=== PATIENT | female | born 1955 | race Caucasian/White ===

== ENCOUNTER 2020-04-10 20:14 | Emergency (ER) | payer OTHER, SELFPAY ==
[2020-04-10 20:32] VITALS: BP 174/110; PULSE 92; RESP 18; TEMP 36.7; O2SAT 97; BMI 16.2
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
[2020-04-10 22:43] VITALS: BP 150/96; PULSE 83; RESP 18; TEMP 36.7; O2SAT 97
== END 2020-04-10 22:47 | disposition home or self-care (01) ==
PROVIDERS: Emergency Provider Emergency Medicine; PCP Family Medicine
DX: S33.5XXA Sprain of ligaments of lumbar spine, initial encounter (principal); S16.1XXA Strain of muscle, fascia and tendon at neck level, initial encounter; V47.0XXA Car driver injured in collision with fixed or stationary object in nontraffic accident, initial encounter; Y92.89 Other specified places as the place of occurrence of the external cause
CPT/HCPCS: 71046; 72125; 72128; 72131; 72170; 99282

== ENCOUNTER 2020-04-29 04:16 | Inpatient (IN) | payer MEDICARE, OTHER, SELFPAY ==
[2020-04-29] VITALS (11 sets, daily range): BP systolic 137–186; BP diastolic 64–91; PULSE 59–90; RESP 16–98; TEMP 36.6–37.2; O2SAT 92–98; BMI 16.6; BMI 15.6
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
[2020-04-29 05:58] LABS: Basophils # 0.1 K/mm3 (0-0.2); Basophils % 0.8 % (0.1-2.0); Eosinophils # 0.1 K/mm3 (0.0-0.4); Eosinophils % 0.7 % (0.1-12.0); Hematocrit 54.1 % (37.0-47.0); Hemoglobin 16.4 g/dL (12.2-16.2); Lymphocytes # 1.3 K/mm3 (0.7-4.5); Lymphocytes % 11.7 % (10-50); Mean Corpuscular HGB Conc 30.4 g/dL (31.8-35.4); Mean Corpuscular Hemoglobin 30.6 pg (27.0-31.2); Mean Corpuscular Volume 100.6 fl (81-99); Monocytes # 0.8 K/mm3 (0.1-1.0); Monocytes % 6.8 % (1.7-9.3); Neutrophils # 9.2 K/mm3 (1.8-7.8); Neutrophils % 80.1 % (37.0-80.0); Platelet Count 247 K/mm3 (142-424); Red Blood Count 5.37 M/mm3 (4.20-5.40); Red Cell Distribution Width 13.2 % (11.5-17.5); White Blood Count 11.5 K/mm3 (4.8-10.8)
[2020-04-29 06:05] LABS: Alanine Aminotransferase 17 U/L (12-78); Albumin Level 4.9 g/dl (3.5-5.0); Albumin/Globulin Ratio 1.3 (1.1-1.8); Alkaline Phosphatase 249 U/L (38-126); Anion Gap 17.4 mEq/L (5-15); Aspartate Amino Transferase 35 U/L (14-36); Bilirubin,Total 0.9 mg/dl (0.2-1.3); Blood Urea Nitrogen 37 mg/dl (7-17); Calcium 10.2 mg/dl (8.4-10.2); Carbon Dioxide 33 mmol/L (22.0-30.0); Chloride 81 mmol/L (98-107); Creatinine Clearance Estimated 31 mL/min (50-200); Estimated Glomerular Filt Rate 45 ml/min (>60); GFR (African American) 55 ML/MIN (>60); Globulin 3.8 g/dL (1.3-3.2); Potassium 5.4 mmoL/L (3.5-5.1); Sodium 126 mmol/L (136-145); Total Protein,Serum 8.7 g/dl (6.3-8.2)
[2020-04-29 06:19] LABS: Ethyl Alcohol < 10 mg/dl (0-10)
[2020-04-29 06:20] LABS: Glucose 819 mg/dl (74-100)
[2020-04-29 06:59] LABS: Acetone, Serum (Rapid) None Detected (None Detect)
--- NOTE | 2020-04-29 07:10 | HMH.EDGENADL ---
ED Disposition Clinical Impression: Diabetes mellitus, insulin dependent (IDDM), uncontrolled, Renal insufficiency Hip fracture Qualifiers: Encounter type: initial encounter Fracture type: closed Laterality: right Qualified Code(s): S72.001A - Fracture of unspecified part of neck of right femur, initial encounter for closed fracture Disposition: Admitted As Inpatient Condition on Discharge: Fair Referrals: PCP,No [Non-Staff] - - Critical Care Critical Care Time: No Attestation: On 04/29/20, the high probability of a clinically significant, sudden or life threatening deterioration of the following system(s) required my full and direct attention, intervention and personal management. The time I documented below is in addition to time spent performing reported procedures but includes the following listed in this critical care notation. Medical Decision Making - Medical Records Medical records reviewed: Yes: I reviewed the patient's medical records. - Kodi Inquiry Pt receiving controlled substance: No Vital Signs: 04/29/20 04:17 04/29/20 04:45 04/29/20 08:11 Temperature 98.0 F Temperature Source Oral Pulse Rate Pulse Rate [Left Radial] 90 76 73 Respiratory Rate 16 18 Blood Pressure Blood Pressure [Right Arm] 148/87 H 186/67 H 184/91 H Blood Pressure Mean [Right Arm] 107 106 122 Blood Pressure Source [Right Arm] Automatic Cuff Automatic Cuff Blood Pressure Position Blood Pressure Position [Right Arm] Sitting Sitting 02 Sat by Pulse Oximetry 96 95 95 Oxygen Delivery Method Room Air Room Air Room Air 04/29/20 08:22 Temperature 98 F Temperature Source Oral Pulse Rate 74 Pulse Rate [Left Radial] Respiratory Rate 16 Blood Pressure 122/74 Blood Pressure [Right Arm] Blood Pressure Mean [Right Arm] Blood Pressure Source [Right Arm] Blood Pressure Position Sitting Blood Pressure Position [Right Arm] 02 Sat by Pulse Oximetry Oxygen Delivery Method Room Air - Lab Data Lab results reviewed: Yes: I reviewed the patient's lab results. Lab Results 04/29/20 05:22: WBC 11.5 H, RBC 5.37, Hgb 16.4 H, Hct 54.1 H, MCV 100.6 H, MCH 30.6, MCHC 30.4 L, RDW 13.2, Plt Count 247, MPV 10.0, Neut % (Auto) 80.1 H, Lymph % (Auto) 11.7, Monona % (Auto) 6.8, Eos % (Auto) 0.7, Baso % (Auto) 0.8, Neut # (Auto) 9.2 H, Lymph # (Auto) 1.3, Monona # (Auto) 0.8, Eos # (Auto) 0.1, Baso # (Auto) 0.1 04/29/20 05:22: Sodium 126 L, Potassium 5.4 H, Chloride 81 L, Carbon Dioxide 33 H, Anion Gap 17.4 H, BUN 37 H, Creatinine 1.20 H, Estimated Creat Clear 31, Estimated GFR 45 L, Est GFR ( Amer) 55 L, Glucose 819 H*, Calcium 10.2, Total Bilirubin 0.9, AST 35, ALT 17, Alkaline Phosphatase 249 H, Total Protein 8.7 H, Albumin 4.9, Globulin 3.8 H, Albumin/Globulin Ratio 1.3 04/29/20 05:22: Plasma/Serum Alcohol < 10 04/29/20 05:22: Acetone Level None detected 04/29/20 05:22: SARS-CoV-2 IgG Ab (Rapid) Negative, SARS-CoV-2 IgM Ab (Rapid) Negative 04/29/20 07:20: Urine Color Yellow, Urine Appearance Clear, Urine pH 5.5, Ur Specific Gill 1.010, Urine Protein 1+, Urine Glucose (UA) 3+, Urine Ketones Negative, Urine Blood Trace-l, Urine Nitrate Negative, Urine Bilirubin Negative, Urine Urobilinogen 0.2, Ur Leukocyte Esterase Negative, Urine RBC Occasional, Urine WBC None, Ur Squamous Epith Cells Occasional, Urine Bacteria None Result diagrams: 04/29/20 05:22 04/29/20 05:22 Orders (Tests/Meds): ED MEDICATIONS Discontinued Medications Generic Name Dose Route Start Last Admin Trade Name Freq PRN Reason Stop Dose Admin Sodium Chloride 1,000 mls @ 999 mls/hr 04/29/20 05:30 04/29/20 05:27 Sod Chlor 0.9% 1000ml Bag IV 04/29/20 06:30 999 mls/hr .Q1H1M VAN Administration Sodium Chloride 1,000 mls @ 999 mls/hr 04/29/20 06:30 04/29/20 06:27 Sod Chlor 0.9% 1000ml Bag IV 04/29/20 07:30 999 mls/hr .Q1H1M VAN Administration Insulin Human Regular 5 unit 04/29/20 06:22 04/29/20 06:27 Insulin Human Regular
[2020-04-29 07:23] LABS: Microscopic, Urine URINE MICROSCOPIC (MICROSCOPIC)
[2020-04-29 07:24] LABS: Coronavirus 19 IgG Antibody Negative (Negative); Coronavirus 19 IgM Antibody Negative (Negative)
[2020-04-29 07:24] LABS: Appearance,Urine CLEAR (Clear); Bilirubin,Urine Negative (Negative); Blood, Urine TRACE-L (Negative); Color,Urine YELLOW (Yellow); Glucose,Urine (UA) 3+ (Negative); Ketones,Urine Negative (Negative); Leukocyte Esterase,Urine Negative (Negative); Nitrate,Urine Negative (Negative); PH,Urine 5.5 (5.0-8.5); Protein,Urine 1+ (Negative); Urobilinogen,Urine 0.2 EU/dl (0.2)
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
--- NOTE | 2020-04-29 07:41 | PC.NURSE ---
Pt to rad.
[2020-04-29 07:47] LABS: RBC,Urine Occasional #/hpf (0-3); Squamous Epithelial Cell,Urine Occasional #/hpf (0-5)
--- NOTE | 2020-04-29 08:19 | PC.NURSE ---
Meena Lackey at this time.
--- NOTE | 2020-04-29 08:22 | PC.NURSE ---
Dr Lackey returned call.
--- NOTE | 2020-04-29 08:26 | ECG_ITS ---
APPROVED REPORT Exam: Resting ECG HR:83 bpm ECG Measurements Heart Rate 83 AXES TN 128 P 83 QRSd 76 QRS 98 QT 350 T 69 QTc 411 Conclusion Normal sinus rhythm Rightward axis Borderline ECG Electronically signed by : Silvestre Dang, 04/30/2020 06:26:22
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
--- NOTE | 2020-04-29 08:59 | PC.NURSE ---
Rad at bedside
[2020-04-29 09:13] LABS: INR 0.94 (0.9-1.1); Prothrombin Time 10.5 seconds (9.4-11.8)
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
--- NOTE | 2020-04-29 09:54 | PC.NURSE ---
Spoke w/ Dr. Dunn and states that Dr. Soria was consult in ED. Pt to be medically cleared by Dr. Lackey prior to surgery.
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
--- NOTE | 2020-04-29 11:52 | HMH.HP ---
*Admission Date: 04/29/20 *Chief complaint: right hip pain *History of present illness: Patient is a 65 year old female from [place], [place] who presented to [facility] ER overnight complaining of a 1 week history of right hip pain. Patient states she fell a week ago at home while sorting household goods for a yard sale. She was able to stand and walk after falling. She states the pain has gotten progressively worse over the past week to the point that she was unable to sleep due to the pain last night. Evaluation in the ER showed a right hip fracture on xray and CT scan so arrangements were made for admission to [facility]. Patient states she has numerous health problems including DM type2 (last A1c was 14 a month ago), CAD (CABG in 2011), COPD (100 pack year smoking history), chronic narcotic use and pancreatic insufficiency. [facility] History Medical History: Reports:: Cancer, Chronic Obstructive Pulmonary Disease (COPD), Coronary Artery Disease, Diabetes Mellitus Type 2, Hyperlipidemia, Hypertension, Myocardial Infarction Denies:: MRSA *Have you ever received a pneumonia vaccine?: Yes *Have you received a flu vaccine this season?: Yes Other Medical History: Reports: Arthritis, Cataracts Other Surgeries: Yes: Angioplasty, Appendectomy, CABG, Cancer Surgery (SQUAMOUS CELL CARCINOMA FACE), Cardiac Catheterization, Cardiac Surgery, Cholecystectomy, Coronary Stent, Hysterectomy-Total, Other (KIDNEY AND BLADDER RECON) Amputation: No - *Social History Smoking Status: Current every day smoker Tobacco Type: cigarettes # Packs/Day (cigarettes): 1 (up to 3 packs per day at times) #Yrs smoked (if former smoker): 50 Alcohol Intake: never *Occupational Status:: retired Housing: house *Travel in the last 8 weeks: None Family Hx:: Cancer, Coronary Artery Disease, Diabetes, Heart Attack, Stroke Review of Systems - Constitutional Denies chills, Denies fever(s), Denies weight loss - Eyes Denies change in vision - ENT Denies bleeding gums - *Cardiovascular Denies chest pain - *Respiratory Denies cough - *Gastrointestinal Denies abdominal pain - *Genitourinary Denies difficulty urinating - *Musculoskeletal Reports back pain (chronic) - Integumentary/Breasts Denies rash - *Neurologic Denies dizziness - Psychiatric Denies irritability Meds Home Medications Medication Instructions Recorded Confirmed Type Albuterol Sulfate [Proair 2 puffs IH Q8HP PRN 10/31/20 10/31/20 History Respiclick] Aspirin 325 mg PO DAILY 04/29/20 04/29/20 History Dicyclomine HCl 20 mg PO QID 04/29/20 04/29/20 History Insulin Aspart [Novolog] 0 unit SQ DIRECTED 04/29/20 04/29/20 History Insulin Detemir [Levemir 100 10 unit SQ BID 04/29/20 04/29/20 History units/mL 10mL vial] Lipase/Protease/Amylase [Miguel Dr 2 each PO AC 04/29/20 04/29/20 History 36,000 Units Capsule] Metoclopramide HCl [Metoclopramide 10 mg PO DAILY 04/29/20 04/29/20 History 10mg Tablet] Nebivolol HCl [Bystolic] 20 mg PO DAILY 04/29/20 04/29/20 History Oxycodone HCl/Acetaminophen 1 tab PO TIDP PRN 04/29/20 04/29/20 History [Percocet 10-325 mg Tablet] Pantoprazole Sodium 40 mg PO TID 04/29/20 04/29/20 History Promethazine HCl [Phenergan 25mg 25 mg PO Q6HP PRN 04/29/20 04/29/20 History tablet] Ropinirole HCl 0.5 mg PO TID 04/29/20 04/29/20 History Sertraline HCl [Zoloft] 50 mg PO DAILY 04/29/20 04/29/20 History ondansetron HCL [Zofran 4mg Tab*] 4 mg PO BIDP PRN 04/29/20 04/29/20 History Allergies Allergy/AdvReac Type Severity Reaction Status Date / Time Iodinated Contrast Media Allergy Verified 04/10/20 20:39 Exam Vital signs and Labs for Last 24 Hours: Temp Pulse Resp BP Pulse Ox 98 F 78 98 H 159/74 H 93 L 04/29/20 10:05 04/29/20 10:05 04/29/20 10:05 04/29/20 10:05 04/29/20 09:45 Laboratory Results - last 24 hr 04/29/20 05:22: WBC 11.5 H, RBC 5.37, Hgb 16.4 H, Hct 54.1 H, MCV 100.6 H, MCH 30.6, MCHC 30.4 L, RDW 13.2, Plt Count 247, MPV 10.
[2020-04-29 11:59] LABS: POC Glucose,Bedside 329 (70-110)
[2020-04-29 12:07] LABS: Hemoglobin A1C 12.5 % (4.0-6.0)
--- NOTE | 2020-04-29 13:06 | HMH.ORTHOCON ---
*Admission Date: 04/29/20 *Reason for consult:: Fracture neck of femur, right *History of present illness: Patient is a 65 year old female from [place], [place] who presented to [facility] ER overnight complaining of a 1 week history of right hip pain. Patient states she fell a week ago at home while sorting household goods for a yard sale. She was able to stand and walk after falling. She states the pain has gotten progressively worse over the past week to the point that she was unable to sleep due to the pain last night prompting her to come to the ER. Evaluation in the ER showed a nondisplaced subcapital fracture of the right hip on xray and CT scan. Patient is admitted from the ER for further management of the right hip fracture. She is localizing the pain to the right groin area with radiation down the thigh. She says any attempted hip movements or weightbearing aggravate her pain. Rest, ice, heat and not moving the hip helps her pain. Patient says prior to the fall, she did not have any hip problems and normally mobilizes independently without any walking aids. She reports no other injuries. Patient states she has numerous health problems including DM type2 (last A1c was 14 a month ago), CAD (CABG in 2011), COPD (100 pack year smoking history), chronic narcotic use and pancreatic insufficiency. [facility] History I have reviewed the patient's past medical history: Yes Medical History: Reports:: Cancer, Chronic Obstructive Pulmonary Disease (COPD), Coronary Artery Disease, Diabetes Mellitus Type 2, Hyperlipidemia, Hypertension, Myocardial Infarction Denies:: MRSA *Have you ever received a pneumonia vaccine?: Yes *Have you received a flu vaccine this season?: Yes Other Medical History: Reports: Arthritis, Cataracts Other Surgeries: Yes: Angioplasty, Appendectomy, CABG, Cancer Surgery (SQUAMOUS CELL CARCINOMA FACE), Cardiac Catheterization, Cardiac Surgery, Cholecystectomy, Coronary Stent, Hysterectomy-Total, Other (KIDNEY AND BLADDER RECON) Amputation: No - *Social History Smoking Status: Current every day smoker Tobacco Type: cigarettes # Packs/Day (cigarettes): 1 (up to 3 packs per day at times) #Yrs smoked (if former smoker): 50 Alcohol Intake: never *Occupational Status:: retired Housing: house *Travel in the last 8 weeks: None Family Hx:: Cancer, Coronary Artery Disease, Diabetes, Heart Attack, Stroke Review of Systems - Review of Systems Review of systems:: pertinent systems reviewed and negative unless documented below - Constitutional Denies fever(s), Denies weight loss - Eyes Denies change in vision - ENT Denies abnormal hearing, Denies difficulty swallowing - *Cardiovascular Denies chest pain, Denies shortness of breath - *Respiratory Denies chest congestion, Denies cough, Denies shortness of breath - *Gastrointestinal Denies abdominal pain, Denies change in bowel habits - *Genitourinary Denies difficulty urinating - *Musculoskeletal Reports abnormal walking, Reports joint pain, Reports limited joint movement - Integumentary/Breasts Denies rash - *Neurologic Reports abnormal walking, Denies dizziness, Denies localized weakness - Psychiatric Denies anxiety, Denies change in appetite - Hematologic/Lymphatic Denies easy bleeding, Denies easy bruising Meds Home Medications Medication Instructions Recorded Confirmed Type Albuterol Sulfate [Proair 2 puffs IH Q8HP PRN 04/29/20 04/29/20 History Respiclick] Aspirin 325 mg PO DAILY 04/29/20 04/29/20 History Dicyclomine HCl 20 mg PO QID 04/29/20 04/29/20 History Fluoxetine HCl [Prozac] 40 mg PO DAILY 04/29/20 04/29/20 History Insulin Aspart [Novolog] 0 unit SQ DIRECTED 04/29/20 04/29/20 History Insulin Detemir [Levemir 100 10 unit SQ BID 04/29/20 04/29/20 History units/mL 10mL vial] Lipase/Protease/Amylase [Creon Dr 2 each PO AC 04/29/20 04/29/20 History 36,000 Units Capsule] Metoclopramide HCl [Metoclopramide 10 mg PO DAILY 04/29/20 04/29/20 History
--- NOTE | 2020-04-29 14:38 | HMH.PHAINT ---
MED REC- OBTAINED LIST FROM [facility] [place]. WAS INCOMPLETE COMPARED TO PATIENT'S MEDICATION LIST OBTAINED IN ER. PATIENT'S PCP IS VICK AVELAR. COULD NOT REACH OFFICE (CLOSED FOR WEEKEND). PATIENT STATED THAT SHE GETS MOST OF HER MEDICATIONS FROM [facility] (ALSO CLOSED FOR WEEKEND). CURRENT HOME MED LIST REFLECTS THAT OF PATIENT'S WRITTEN LIST THAT WAS BROUGHT IN AND LIST OBTAINED FROM [facility] [place]. -IRMA REAL, PHARMD
--- NOTE | 2020-04-29 16:02 | PC.NURSE ---
Pt has rested at intervals. (R) hip pain being treated per AUG w/ adequate relief noted. Ortho consulted this shift. Pt is able to repositon herself in bed, but will ask for help periodically. Is ordered bedrest. Gaona cath to drain at bedside w/ clear yellow urine noted. No BM this shift. Currently resting in bed. Lovenox for VTE prophylaxis. Call nathan w/in reach. Bed alarm in place.
[2020-04-29 17:36] LABS: POC Glucose,Bedside 148 (70-110)
--- NOTE | 2020-04-29 18:44 | PC.NURSE ---
Spoke with MD Lackey. Cancel evening dose of Lantus tonight. Will pass onto evening nurse.
[2020-04-29 18:52] LABS: POC Glucose,Bedside 423 (70-110)
[2020-04-29 20:21] LABS: POC Glucose,Bedside 220 (70-110)
--- NOTE | 2020-04-29 23:31 | PC.NURSE ---
Pt noted to be diaphoretic. Pt stated she was sweating and hot. FSBS obtained. Resulting 47. Stat blood glucose ordered. Pt give orange juice and peanut butter w/ joanna crackers.
--- NOTE | 2020-04-29 23:45 | PC.NURSE ---
Repeat FSBS 61. Pt states she feels better now. Pt requested some grape juice and is currently eating peanut butter and crackers. Will continue to monitor.
[2020-04-29 23:53] LABS: POC Glucose,Bedside 61 (70-110)
[2020-04-29 23:53] LABS: Glucose,Random 50 mg/dL (74-100)
[2020-04-30 04:00] VITALS: BP 177/84; PULSE 64; RESP 16; TEMP 36.9; O2SAT 93
[2020-04-30 05:00] VITALS: BMI 36.1
[2020-04-30 05:59] LABS: POC Glucose,Bedside 380 (70-110)
--- NOTE | 2020-04-30 06:22 | PC.NURSE ---
Pt has slept well this shift. Continues to require regular administrations of pain medication. Pt c/o of pain at 10/10 on pain scale with any movement/shifting. Lung sounds continue to have wheezing throughout. Gaona in place with clear and yellow urine. Pt had episode at approx. 2330 of diaphoresis. Blood sugar was 47. [place] juice with peanut butter and crackers given to patient. Subsequent blood sugar was 61 with no further s/sx of hypoglycemia. Blood sugar this am was 380.
[2020-04-30 07:18] LABS: Basophils # 0.1 K/mm3 (0-0.2); Basophils % 0.7 % (0.1-2.0); Eosinophils # 0.2 K/mm3 (0.0-0.4); Eosinophils % 2.3 % (0.1-12.0); Hemoglobin 14.5 g/dL (12.2-16.2); Lymphocytes # 1.7 K/mm3 (0.7-4.5); Lymphocytes % 20.9 % (10-50); Mean Corpuscular HGB Conc 32.2 g/dL (31.8-35.4); Mean Corpuscular Hemoglobin 31.1 pg (27.0-31.2); Mean Corpuscular Volume 96.7 fl (81-99); Mean Platelet Volume 8.4 fl (7.4-10.4); Monocytes # 0.4 K/mm3 (0.1-1.0); Monocytes % 4.4 % (1.7-9.3); Neutrophils # 5.7 K/mm3 (1.8-7.8); Neutrophils % 71.8 % (37.0-80.0); Platelet Count 224 K/mm3 (142-424); Red Blood Count 4.66 M/mm3 (4.20-5.40); Red Cell Distribution Width 13.7 % (11.5-17.5)
[2020-04-30 07:28] LABS: Chloride 98 mmol/L (98-107); Potassium 4.9 mmoL/L (3.5-5.1); Sodium 132 mmol/L (136-145)
[2020-04-30 07:31] LABS: Anion Gap 6.9 mEq/L (5-15); Blood Urea Nitrogen 26 mg/dl (7-17); Carbon Dioxide 32 mmol/L (22.0-30.0); Creatinine Clearance Estimated 38 mL/min (50-200); Estimated Glomerular Filt Rate 63 ml/min (>60); GFR (African American) 76 ML/MIN (>60); Glucose 334 mg/dl (74-100); Magnesium 1.9 mg/dl (1.6-2.3)
[2020-04-30 07:38] LABS: Calcium 8.5 mg/dl (8.4-10.2)
[2020-04-30 08:00] VITALS: BP 166/86; PULSE 73; RESP 18; TEMP 36.8; O2SAT 94
--- NOTE | 2020-04-30 08:36 | HMH.ACPN2 ---
Internal Medicine - PN: Subj *Date: 04/30/20 *Time: 08:36 Interval history: Patient with no new complaints today, still with right hip pain. Exam Vital signs and Labs for Last 24 Hours: Temp Pulse Resp BP Pulse Ox 98.4 F 64 16 177/84 H 93 L 04/30/20 04:00 04/30/20 04:00 04/30/20 04:00 04/30/20 04:00 04/30/20 04:00 Laboratory Results - last 24 hr 04/29/20 05:25: Hemoglobin A1c 12.5 H 04/29/20 08:08: POC Glucose 423 H* 04/29/20 11:52: POC Glucose 329 H* 04/29/20 17:13: POC Glucose 148 H 04/29/20 20:10: POC Glucose 220 H 04/29/20 23:35: Random Glucose 50 L 04/29/20 23:43: POC Glucose 61 L 04/30/20 05:51: POC Glucose 380 H* 04/30/20 06:35: WBC 8.0 D, RBC 4.66, Hgb 14.5, Hct 45.0, MCV 96.7, MCH 31.1, MCHC 32.2, RDW 13.7, Plt Count 224, MPV 8.4, Neut % (Auto) 71.8, Lymph % (Auto) 20.9, [place] % (Auto) 4.4, Eos % (Auto) 2.3, Baso % (Auto) 0.7, Neut # (Auto) 5.7, Lymph # (Auto) 1.7, [place] # (Auto) 0.4, Eos # (Auto) 0.2, Baso # (Auto) 0.1 04/30/20 06:35: Sodium 132 L, Potassium 4.9, Chloride 98 D, Carbon Dioxide 32 H, Anion Gap 6.9, BUN 26 H D, Creatinine 0.90 D, Estimated Creat Clear 38, Estimated GFR 63, Est GFR ( Amer) 76 D, Glucose 334 H, Calcium 8.5 D, Magnesium 1.9 Vital Signs - 24 hr 04/29/20 09:45 04/29/20 10:00 04/29/20 10:05 Temperature 99.0 F 98 F Pulse Rate 78 Pulse Rate [Left Radial] 76 Respiratory Rate 18 18 98 H Blood Pressure 159/74 H Blood Pressure [Right Arm] 165/82 H 02 Sat by Pulse Oximetry 93 L 98 04/29/20 14:07 04/29/20 14:08 04/29/20 16:00 Temperature 98.2 F Pulse Rate Pulse Rate [Left Radial] 59 L Respiratory Rate 18 18 18 Blood Pressure Blood Pressure [Right Arm] 137/64 02 Sat by Pulse Oximetry 92 L 04/29/20 20:00 04/30/20 04:00 Temperature 98.6 F 98.4 F Pulse Rate Pulse Rate [Left Radial] 66 64 Respiratory Rate 16 16 Blood Pressure Blood Pressure [Right Arm] 146/77 H 177/84 H 02 Sat by Pulse Oximetry 92 L 93 L I & O for Last 24 hours: Intake & Output 04/27/20 04/28/20 04/29/20 04/30/20 23:59 23:59 23:59 22:59 Intake Total 985 / 985 Output Total 900 / 900 375 / 375 Balance 85 / 85 -375 / -375 Weight 88 lb 6 oz 94 lb 6 oz - Constitutional no acute distress - *Routine HEENT Exam Head: Present: normocephalic Eye: Present: EOMI ENT: Present: mucous membranes moist - *Routine Neck Exam Present: supple. Absent: lymphadenopathy - *Routine Respiratory Exam Present: CTA bilaterally - *Routine Cardiovascular Exam Present: RRR - *Routine Abdominal Exam Present: soft, normoactive bowel sounds. Absent: tenderness - *Routine Extremities Exam Present: tenderness (over lateral right hip). Absent: cyanosis, clubbing, edema - *Routine Skin Exam Present: warm. Absent: rash - *Routine Neurological Exam Present: alert, oriented X3 Assessment and Plan (1) Hip fracture Status: Acute Qualifiers: Encounter type: initial encounter Fracture type: closed Laterality: right Qualified Code(s): S72.001A - Fracture of unspecified part of neck of right femur, initial encounter for closed fracture Category: Medical Code(s): S72.009A - Fracture of unspecified part of neck of unspecified femur, initial encounter for closed fracture (2) CAD (coronary artery disease) Status: Acute Category: Medical Code(s): I25.10 - Atherosclerotic heart disease of [place] coronary artery without angina pectoris (3) COPD (chronic obstructive pulmonary disease) Status: Acute Category: Medical Code(s): J44.9 - Chronic obstructive pulmonary disease, unspecified (4) Tobacco use disorder Status: Acute Category: Medical Code(s): F17.200 - Nicotine dependence, unspecified, uncomplicated (5) Pancreatic insufficiency Status: Acute Category: Medical Code(s): K86.89 - Other specified diseases of pancreas (6) Hyperglycemia due to type 2 diabetes mellitus Status: Acute Category: Medical Code(s
[2020-04-30 12:01] LABS: POC Glucose,Bedside 106 (70-110)
[2020-04-30 16:00] VITALS: BP 163/69; PULSE 57; RESP 20; TEMP 36.8; O2SAT 93
--- NOTE | 2020-04-30 16:53 | PC.NURSE ---
PT IS RESTING IN BED. MEDICATED NEEDED FOR PAIN. PT HAS BEEN REPOSITIONING HERSELF IN THE BED. EATING AND DRINKING WELL. LUNG SOUNDS HAVE SCATTERED WHEEZES. ABDOMEN SOFT/ NON TENDER WITH ACTIVE BOWEL SOUNDS. PT STATES HE HAS NOT HAD A BOWEL MOVEMENT SINCE FRIDAY. VSS. WILL CONTINUE TO MONITOR.
--- NOTE | 2020-04-30 18:20 | HMH.ORTHPN ---
Subjective Date: 04/30/20 Time: 17:15 Principal diagnosis: Fracture neck of femur, right Interval history: Patient says she is doing well and reports no new problems. She is complaining of right hip pain with radiation to the thigh and occasional muscle spasms. He says the pain is well controlled with as needed pain medication. No history of any nausea or vomiting. No history of any cough, chest pain, shortness of breath or palpitations. Patient says she is eating and drinking well. No history of any distal tingling or numbness. PN: Obj Ex Vital signs: Temp Pulse Resp BP Pulse Ox 98.2 F 57 L 20 163/69 H 93 L 04/30/20 16:00 04/30/20 16:00 04/30/20 16:00 04/30/20 16:00 04/30/20 16:00 Narrative: Laboratory Results - last 24 hr 04/29/20 20:10: POC Glucose 220 H 04/29/20 23:35: Random Glucose 50 L 04/29/20 23:43: POC Glucose 61 L 04/30/20 05:51: POC Glucose 380 H* 04/30/20 06:35: WBC 8.0 D, RBC 4.66, Hgb 14.5, Hct 45.0, MCV 96.7, MCH 31.1, MCHC 32.2, RDW 13.7, Plt Count 224, MPV 8.4, Neut % (Auto) 71.8, Lymph % (Auto) 20.9, [place] % (Auto) 4.4, Eos % (Auto) 2.3, Baso % (Auto) 0.7, Neut # (Auto) 5.7, Lymph # (Auto) 1.7, [place] # (Auto) 0.4, Eos # (Auto) 0.2, Baso # (Auto) 0.1 04/30/20 06:35: Sodium 132 L, Potassium 4.9, Chloride 98 D, Carbon Dioxide 32 H, Anion Gap 6.9, BUN 26 H D, Creatinine 0.90 D, Estimated Creat Clear 38, Estimated GFR 63, Est GFR ( Amer) 76 D, Glucose 334 H, Calcium 8.5 D, Magnesium 1.9 04/30/20 11:40: POC Glucose 106 Exam General appearance: alert, active, awake, no acute distress Cardiovascular: regular rate & rhythm Respiratory: No respiratory distress noted, speaks in full sentences ABD: soft and non tender Neuro: alert, awake, oriented x 3 Psych: Appropriate l mood and affect for her situation On examination of the lower extremities the limb lengths are equal. Thigh and calf are soft and nontender. On examination of the right hip the skin is intact. She is tender over the right hip and any attempted movements are painful. Distal pulses are 1+. Distal sensation is intact to light touch throughout. Good range of foot and ankle movements noted. - Urinary Catheter Management Gaona Cath placed during this visit: no Progress Note: A&P (1) Hip fracture Status: Acute (2) CAD (coronary artery disease) Status: Acute (3) COPD (chronic obstructive pulmonary disease) Status: Acute (4) Tobacco use disorder Status: Acute (5) Pancreatic insufficiency Status: Acute (6) Hyperglycemia due to type 2 diabetes mellitus Status: Acute (7) Diabetes mellitus, insulin dependent (IDDM), uncontrolled Status: Acute (8) Renal insufficiency Status: Acute (9) Lumbar back pain Status: Acute Assessment and Plan for All Diagnoses:: I have again reviewed the clinical and imaging findings with the patient. I have again discussed the diagnosis, natural history and management options which are essentially surgical. I have again discussed about in situ pinning with cannulated screws versus total hip arthroplasty as appropriate at the time of surgery. I have discussed the procedures, risks and benefits and alternatives in detail. Patient again wanting to have the least invasive procedure that would address the problem. I told her that my primary option would be cannulated screw fixation but if there is significant displacement at the fracture site then I would go ahead and perform a total hip arthroplasty. The limb is appropriately marked and initialed by me. Recommendations for preoperative preparation include- Type and screen Nothing by mouth from 4 AM in the morning Schedule for surgery with the Operating Room Continue IV fluids Continue analgesia as needed Consent patient for a ?cannulated screw fixation/hemiarthroplasty/total hip arthroplasty right hip?. Order 2 g of IV Ancef for preoperative prophylaxis to start half an hour before surgery. I am planning to take th
[2020-04-30 18:30] LABS: POC Glucose,Bedside 185 (70-110)
[2020-04-30 20:00] VITALS: BP 149/58; PULSE 62; RESP 17; TEMP 36.9; O2SAT 92
[2020-04-30 20:07] LABS: POC Glucose,Bedside 400 (70-110)
[2020-05-01] VITALS (28 sets, daily range): BP systolic 163–229; BP diastolic 71–111; PULSE 53–63; RESP 16–22; TEMP 36.4–43; O2SAT 90–98; BMI 36.9; BMI 37.0; BMI 16.7
--- NOTE | 2020-05-01 | XR_ITS ---
PROCEDURE: XR HIP RT 2-3V W/PELVIS CLINICAL INDICATION: C-ARM CASE, ORIF RIGHT HIP COMPARISON: No exams were available for comparison FINDINGS: Fluoroscopy time: 1 minutes and 8 seconds C-arm is utilized for pinning of the right hip. Three lag screws placed stabilizing the right femoral neck fracture which appears to be in good alignment. IMPRESSION: Status post pinning right hip with good alignment Dictated by: Sumanth Sanchez MD 05/01/2020 18:24 Sumanth Sanchez MD in OV 05/01/2020 18:24
[2020-05-01 00:57] LABS: Glucose,Random 52 mg/dL (74-100)
--- NOTE | 2020-05-01 01:12 | PC.NURSE ---
Pt had hypoglycemic episode, with fingerstick glucose of 45. Pt given orange juice and peanut butter crackers. Pt remains diaphoretic at this time. Random fingerstick shows glucose of 75. Ice cream and pepsi given to patient since she will become NPO after 0400 for surgery. Will relay information to dayshift nurse.
[2020-05-01 01:16] LABS: POC Glucose,Bedside 75 (70-110)
--- NOTE | 2020-05-01 03:20 | PC.NURSE ---
Pt has slept intermittently. No longer diaphoretic since blood sugars have normalized. C/o pain with any movement. Lungs sounds are clear. Pt anxious to have right hip repair.
[2020-05-01 05:47] LABS: POC Glucose,Bedside 336 (70-110)
[2020-05-01 05:58] LABS: Basophils # 0.1 K/mm3 (0-0.2); Basophils % 0.6 % (0.1-2.0); Eosinophils # 0.1 K/mm3 (0.0-0.4); Eosinophils % 0.8 % (0.1-12.0); Hematocrit 51.5 % (37.0-47.0); Hemoglobin 15.8 g/dL (12.2-16.2); Lymphocytes # 1.3 K/mm3 (0.7-4.5); Lymphocytes % 14.5 % (10-50); Mean Corpuscular HGB Conc 30.7 g/dL (31.8-35.4); Mean Corpuscular Hemoglobin 30.5 pg (27.0-31.2); Mean Corpuscular Volume 99.2 fl (81-99); Mean Platelet Volume 8.6 fl (7.4-10.4); Monocytes # 0.4 K/mm3 (0.1-1.0); Monocytes % 4.9 % (1.7-9.3); Neutrophils % 79.1 % (37.0-80.0); Platelet Count 265 K/mm3 (142-424); Red Blood Count 5.19 M/mm3 (4.20-5.40); Red Cell Distribution Width 13.4 % (11.5-17.5); White Blood Count 8.8 K/mm3 (4.8-10.8)
[2020-05-01 06:14] LABS: INR 0.92 (0.9-1.1); Prothrombin Time 10.3 seconds (9.4-11.8)
[2020-05-01 06:18] LABS: Chloride 95 mmol/L (98-107); Sodium 132 mmol/L (136-145)
[2020-05-01 06:21] LABS: Blood Urea Nitrogen 30 mg/dl (7-17); Creatinine Clearance Estimated 84 mL/min (50-200); Estimated Glomerular Filt Rate 56 ml/min (>60); GFR (African American) 67 ML/MIN (>60)
[2020-05-01 06:22] LABS: Anion Gap 9.5 mEq/L (5-15); Calcium 9.2 mg/dl (8.4-10.2); Carbon Dioxide 34 mmol/L (22.0-30.0); Glucose 399 mg/dl (74-100)
[2020-05-01 07:20] LABS: Potassium 6.5 mmoL/L (3.5-5.1)
--- NOTE | 2020-05-01 08:32 | HMH.CNCARD ---
History of Present Illness Consult date: 05/01/20 Requesting physician: Gildardo Lackey Consult reason: pre-op evaluation Chief complaint: hip pain after fall Additional Medical History:: 1. Coronary artery disease A. CABG in 2011, [place], [place] 2. Hypertension 3. Diabetes mellitus insulin requiring with last noted hemoglobin A1c 12.5 4. History of pancreatic insufficiency 5. History of peripheral vascular disease status post suspected abdominal stenting and iliac stenting per patient 6. Continued tobacco use, up to 3 packs/day in the past since very early age. 7. Family history of coronary artery disease 8. Hyperlipidemia 9. Partial colectomy secondary to diverticulosis History of present illness: Patient is a 65 year old female from [place], [place] who presented to [facility] ER overnight complaining of a 1 week history of right hip pain. Patient states she fell a week ago at home while sorting household goods for a yard sale. She was able to stand and walk after falling. She states the pain has gotten progressively worse over the past week to the point that she was unable to sleep due to the pain last night. Evaluation in the ER showed a right hip fracture on xray and CT scan so arrangements were made for admission to [facility]. Patient states she has numerous health problems including DM type2 (last A1c was 14 a month ago), CAD (CABG in 2011), COPD (100 pack year smoking history), chronic narcotic use and pancreatic insufficiency. The above per Dr. Lackey. Patient confirms events as noted above. She denies any recent chest pain, pressure or tightness. She has a long history of vascular disease including cardiac and peripheral with reported stents in the abdominal and iliac areas. She routinely follows up with Dr. Matthews in [place], [place]. EKG is sinus rhythm with rightward axis and suspected biatrial enlargement. [facility] History Medical History: Reports:: Cancer, Chronic Obstructive Pulmonary Disease (COPD), Coronary Artery Disease, Diabetes Mellitus Type 2, Hyperlipidemia, Hypertension, Myocardial Infarction Denies:: MRSA *Have you ever received a pneumonia vaccine?: Yes *Have you received a flu vaccine this season?: Yes Other Medical History: Reports: Arthritis, Cataracts Other Surgeries: Yes: Angioplasty, Appendectomy, CABG, Cancer Surgery (SQUAMOUS CELL CARCINOMA FACE), Cardiac Catheterization, Cardiac Surgery, Cholecystectomy, Coronary Stent, Hysterectomy-Total, Other (KIDNEY AND BLADDER RECON) Amputation: No - *Social History Smoking Status: Current every day smoker Tobacco Type: cigarettes # Packs/Day (cigarettes): 1 (up to 3 packs per day at times) #Yrs smoked (if former smoker): 50 Alcohol Intake: never *Occupational Status:: retired Housing: house *Travel in the last 8 weeks: None Family Hx:: Cancer, Coronary Artery Disease, Diabetes, Heart Attack, Stroke Meds Home Medications Medication Instructions Recorded Confirmed Type Albuterol Sulfate [Proair 2 puffs IH Q8HP PRN 04/29/20 04/29/20 History Respiclick] Aspirin 325 mg PO DAILY 04/29/20 04/29/20 History Dicyclomine HCl 20 mg PO QID 04/29/20 04/29/20 History Fluoxetine HCl [Prozac] 40 mg PO DAILY 04/29/20 04/29/20 History Insulin Aspart [Novolog] 0 unit SQ DIRECTED 04/29/20 04/29/20 History Insulin Detemir [Levemir 100 10 unit SQ BID 04/29/20 04/29/20 History units/mL 10mL vial] Lipase/Protease/Amylase [Creon Dr 2 each PO AC 04/29/20 04/29/20 History 36,000 Units Capsule] Metoclopramide HCl [Metoclopramide 10 mg PO DAILY 04/29/20 04/29/20 History 10mg Tablet] Nebivolol HCl [Bystolic] 20 mg PO DAILY 04/29/20 04/29/20 History Oxycodone HCl/Acetaminophen 1 tab PO TIDP PRN 04/29/20 04/29/20 History [Percocet 10-325 mg Tablet] Pantoprazole Sodium 40 mg PO DAILY 04/29/20 04/29/20 History Promethazine HCl [Phenergan 25mg 25 mg PO Q6HP PRN 04/29/20 04/29/20 History tablet] Ropinirole HCl 0.5 mg PO TID 04/29/20 04/29/20 History ondansetro
--- NOTE | 2020-05-01 08:50 | HMH.ACPN2 ---
<Kaykay Miller - Last Filed: 05/01/20 08:50> Internal Medicine - PN: Subj *Date: 05/01/20 *Time: 08:50 Interval history: Patient states she is ready to have surgery. She plans for around 12 noon. She states her right hip does hurt. She is receiving p.o. and IV pain medicine. She has a Gaona catheter. She is n.p.o. for the surgery. She states she was able to eat dinner last night without any difficulty. Repeat labs this morning show white blood cell count of 8800 with a hemoglobin of 15.8 and hematocrit of 51.5. Blood chemistries show sodium of 132 and an elevated potassium of 6.5. BUN is 30 creatinine is 1. Blood sugars have fluctuated. Hemoglobin A1c was 12.5 on admission. Exam Vital signs and Labs for Last 24 Hours: Temp Pulse Resp BP Pulse Ox 98.2 F 58 L 16 183/71 H 96 05/01/20 04:00 05/01/20 04:00 05/01/20 04:00 05/01/20 04:00 05/01/20 04:00 Laboratory Results - last 24 hr 04/30/20 11:40: POC Glucose 106 04/30/20 16:38: POC Glucose 185 H 04/30/20 18:30: Blood Type A Positive, Antibody Screen Negative 04/30/20 19:59: POC Glucose 400 H* 05/01/20 00:35: Random Glucose 52 L 05/01/20 01:03: POC Glucose 75 05/01/20 05:30: POC Glucose 336 H* 05/01/20 05:35: WBC 8.8, RBC 5.19, Hgb 15.8, Hct 51.5 H, MCV 99.2 H, MCH 30.5, MCHC 30.7 L, RDW 13.4, Plt Count 265, MPV 8.6, Neut % (Auto) 79.1, Lymph % (Auto) 14.5, [place] % (Auto) 4.9, Eos % (Auto) 0.8, Baso % (Auto) 0.6, Neut # (Auto) 7.0, Lymph # (Auto) 1.3, [place] # (Auto) 0.4, Eos # (Auto) 0.1, Baso # (Auto) 0.1 05/01/20 05:35: Sodium 132 L, Potassium 6.5 H* D, Chloride 95 L, Carbon Dioxide 34 H, Anion Gap 9.5, BUN 30 H, Creatinine 1.00, Estimated Creat Clear 84, Estimated GFR 56 L, Est GFR ( Amer) 67, Glucose 399 H, Calcium 9.2 05/01/20 05:35: PT 10.3, INR 0.92 I & O for Last 24 hours: Intake & Output 04/28/20 04/29/20 04/30/20 05/01/20 12:59 12:59 11:59 11:59 Intake Total 879 / 879 Output Total 1025 / 1025 Balance -146 / -146 Weight 208 lb 5.389 oz - Constitutional no acute distress Comments: Conversant - *Routine Respiratory Exam Present: diminished air movement (Posteriorly bilaterally with scattered inspiratory expiratory wheezing throughout.) - *Routine Cardiovascular Exam Present: RRR - *Routine Abdominal Exam Present: soft, normoactive bowel sounds. Absent: tenderness - *Routine Extremities Exam Absent: edema, calf tenderness - *Routine Neurological Exam Present: alert, oriented X3 Assessment and Plan (1) Hip fracture Status: Acute Qualifiers: Encounter type: initial encounter Fracture type: closed Laterality: right Qualified Code(s): S72.001A - Fracture of unspecified part of neck of right femur, initial encounter for closed fracture Category: Medical Code(s): S72.009A - Fracture of unspecified part of neck of unspecified femur, initial encounter for closed fracture (2) CAD (coronary artery disease) Status: Acute Category: Medical Code(s): I25.10 - Atherosclerotic heart disease of [place] coronary artery without angina pectoris (3) COPD (chronic obstructive pulmonary disease) Status: Acute Category: Medical Code(s): J44.9 - Chronic obstructive pulmonary disease, unspecified (4) Tobacco use disorder Status: Acute Category: Medical Code(s): F17.200 - Nicotine dependence, unspecified, uncomplicated (5) Pancreatic insufficiency Status: Acute Category: Medical Code(s): K86.89 - Other specified diseases of pancreas (6) Hyperglycemia due to type 2 diabetes mellitus Status: Acute Category: Medical Code(s): E11.65 - Type 2 diabetes mellitus with hyperglycemia (7) Diabetes mellitus, insulin dependent (IDDM), uncontrolled Status: Acute Category: Medical (8) Renal insufficiency Status: Acute Category: Medical Code(s): N28.9 - Disorder of kidney and ureter, unspecified (9) Lumbar back pain Status: Acute Category: Medical Code(s): M54.5 - L
--- NOTE | 2020-05-01 08:56 | CA_ITS ---
APPROVED REPORT EXAM: Comprehensive 2D, Doppler, and color-flow Echocardiogram [employer]: Eufemia Perez CRT Ht: 5 ft 2 in Wt: 94lbs BSA: 1.39 BP: 159/74 mmHg Indications: CAD, CABG, STENT COPD, Diabetes, CAD, Hyperlipidemia 2D Dimensions LVOT 1.70 cm (M/F) 1.5-2.5 M-Mode Dimensions LA Diam 3.31 cm (1.9-4.0) LVDd 4.01 cm (3.5-5.7) Ao Diam 3.28 cm (2.0-3.7) LVDs 2.93 cm (3.5-5.7) IVSd 0.96 cm (0.6-1.1) PWd 0.81 cm (0.6-1.1) EF (Teich) 53.10% FS 26.90% EDV (Teich) 70.40 mL ESV (Teich) 33.00 mL LV Diastology E Decel Time 190.00 (160-240 msec) E/A Ratio 0.80 MED E' 3.10 (< 7 cm/sec) E'/MED E' Ratio 23.06 (>14) LAT E' 4.40 (<10 cm/sec) E/LAT E' Ratio 16.25 (>14) Aortic Valve AO Peak GR. 6.10 mmHg Mitral Valve MV A Velocity 89.00 (40-130 cm/s) E/A Ratio 0.80 MV Decel. Time 190.00 (160-240 ms) Tricuspid Valve TR P. Velocity 147.00 cm/s RAP Estimate 10.00 mmHg RVSP 18.70 mmHg Left Ventricle Left atrium is mildly enlarged, left ventricle is normal size, mild concentric left ventricular hypertrophy, visually estimated ejection fraction 55% with no regional wall motion abnormality, grade 1 diastolic dysfunction seen with tissue Doppler evidence of raise left atrial pressure. Right Ventricle Right atrium and right ventricle are mildly enlarged with normal contractility. Aortic Valve Aortic valve is minimally thickened and fibrosed, there is no aortic stenosis or aortic insufficiency. Mitral Valve Mitral valve is grossly normal, there is mild mitral regurgitation. Tricuspid Valve Tricuspid valve is grossly normal, there is mild tricuspid regurgitation. Tricuspid regurgitation jet velocity is inadequate for calculation of the right ventricular systolic pressure. Pulmonic Valve Pulmonic valve is poorly visualized. Great Vessels Aortic root is normal size. Pericardium No significant pericardial effusion noted. Conclusion 1. Mildly enlarged left atrium, normal left ventricular size, mild concentric left ventricular hypertrophy, visually estimated ejection fraction 55% with no regional wall motion abnormality, grade 1 diastolic dysfunction seen without tissue Doppler evidence of raise left atrial pressure. 2. Mild mitral and tricuspid regurgitation. 3. Mildly enlarged right ventricle with normal contractility. 4. No significant pericardial effusion noted. Electronically signed by : Juvenal Oconnor, 05/02/2020 04:58:49
[2020-05-01 09:13] LABS: Potassium 5.1 mmoL/L (3.5-5.1)
[2020-05-01 09:24] LABS: POC Glucose,Bedside 45 (70-110)
[2020-05-01 09:24] LABS: POC Glucose,Bedside 45 (70-110)
[2020-05-01 09:25] LABS: POC Glucose,Bedside 47 (70-110)
[2020-05-01 09:25] LABS: POC Glucose,Bedside 43 (70-110)
--- NOTE | 2020-05-01 10:27 | HMH.PULMCON ---
*Admission Date: 04/29/20 *History of present illness: Deysi is a pleasant 65-year-old female from [facility], diabetes mellitus, uncontrolled, CAD status post CABG in 2011, significant smoking history more than [id number] currently smoking 1 pack a day, only on DuoNebs as needed along with albuterol inhaler as needed at home, denies any frequent respiratory infections, last episodes of hospital admission for pneumonia in 2016 presented with hip fracture and patient is scheduled for hip x-ray to surgery and pulmonary was called for preoperative clearance. On this visit patient denies fevers, denies chills, denies night sweats, denies productive cough, denies hemoptysis, denies weight loss and denies loss of appetite. Patient respiratory status is at baseline. [facility] History Medical History: Reports:: Cancer, Chronic Obstructive Pulmonary Disease (COPD), Coronary Artery Disease, Diabetes Mellitus Type 2, Hyperlipidemia, Hypertension, Myocardial Infarction Denies:: MRSA *Have you ever received a pneumonia vaccine?: Yes *Have you received a flu vaccine this season?: Yes Other Medical History: Reports: Arthritis, Cataracts Other Surgeries: Yes: Angioplasty, Appendectomy, CABG, Cancer Surgery (SQUAMOUS CELL CARCINOMA FACE), Cardiac Catheterization, Cardiac Surgery, Cholecystectomy, Coronary Stent, Hysterectomy-Total, Other (KIDNEY AND BLADDER RECON) Amputation: No - *Social History Smoking Status: Current every day smoker Tobacco Type: cigarettes # Packs/Day (cigarettes): 1 (up to 3 packs per day at times) #Yrs smoked (if former smoker): 50 Alcohol Intake: never *Occupational Status:: retired Housing: house *Travel in the last 8 weeks: None Family Hx:: Cancer, Coronary Artery Disease, Diabetes, Heart Attack, Stroke ROS - Cons Denies chills, Denies fatigue, Denies fever(s), Denies poor appetite, Denies weight loss - Eyes Denies dry eyes, Denies sensitivity to light - ENT Denies dizziness, Denies facial pain, Denies pain with swallowing, Denies tongue swelling - Card Reports shortness of breath with activity, Denies leg swelling - Resp Respiratory: Yes shortness of breath, No dyspnea, Yes dyspnea on exertion, No coughing up blood, Yes cough with sputum production, No pain with breathing, No stridor - GI Gastrointestingal: Denies: abdominal pain, dysphagia, nausea, reflux, vomiting - [place] Musculoskeletal: Reports back pain, Reports deformity, Reports limited range of motion, Denies neck pain, Denies small joint pain in the hands Comments: Right hip pain with decreased range of motion - Psych Denies confusion, Denies depression Meds Home Medications Medication Instructions Recorded Confirmed Type Albuterol Sulfate [Proair 2 puffs IH Q8HP PRN 04/29/20 04/29/20 History Respiclick] Aspirin 325 mg PO DAILY 04/29/20 04/29/20 History Dicyclomine HCl 20 mg PO QID 04/29/20 04/29/20 History Fluoxetine HCl [Prozac] 40 mg PO DAILY 04/29/20 04/29/20 History Insulin Aspart [Novolog] 0 unit SQ DIRECTED 04/29/20 04/29/20 History Insulin Detemir [Levemir 100 10 unit SQ BID 04/29/20 04/29/20 History units/mL 10mL vial] Lipase/Protease/Amylase [Miguel Butterfield 2 each PO AC 04/29/20 04/29/20 History 36,000 Units Capsule] Metoclopramide HCl [Metoclopramide 10 mg PO DAILY 04/29/20 04/29/20 History 10mg Tablet] Nebivolol HCl [Bystolic] 20 mg PO DAILY 04/29/20 04/29/20 History Oxycodone HCl/Acetaminophen 1 tab PO TIDP PRN 04/29/20 04/29/20 History [Percocet 10-325 mg Tablet] Pantoprazole Sodium 40 mg PO DAILY 04/29/20 04/29/20 History Promethazine HCl [Phenergan 25mg 25 mg PO Q6HP PRN 04/29/20 04/29/20 History tablet] Ropinirole HCl 0.5 mg PO TID 04/29/20 04/29/20 History ondansetron HCL [Zofran 4mg Tab*] 4 mg PO Q6HP PRN 04/29/20 04/29/20 History Allergies Allergy/AdvReac Type Severity Reaction Status Date / Time Iodinated Contrast Media Allergy Verified 04/10/20 20:39 Exam - Constitutional Comment:
--- NOTE | 2020-05-01 11:40 | PC.NURSE ---
1118 Primary RN at bedside while VS were obtained, reviewed.
[2020-05-01 11:56] LABS: POC Glucose,Bedside 235 (70-110)
--- NOTE | 2020-05-01 14:00 | PC.NURSE ---
pT OFF FLOOR FOR SURGERY
[2020-05-01 14:27] LABS: POC Glucose,Bedside 176 (70-110)
--- NOTE | 2020-05-01 14:43 | HMH.ANESCL ---
[facility] Anesthesia Checklist - Patient Identification Patient Identification: Arm Band - Structural Data Admitted From: Home Planned Operative Procedure/s: Right Hip Cannulated Screw Fixation Consent for Planned Operative Procedure(s) Verified: Yes Verified Documents: Surgical Consent, History and Physical, Cardiac Clearance - NPO Status Verified Time NPO: 00:00 - Additional verifications Anesthesia Reactions: No - Airway Assessment C-Spine Mobility Assessed: Yes (mp2) TMJ Mobility Assessed: Yes Dentition: Edentulous - Anesthesia Plan Anesthesia Risk discussed: Yes Anesthesia Plan: Verified ASA Class: III Anesthesia Type: MAC w/Spinal [facility] History I have reviewed the patient's past medical history: Yes Medical History: Reports:: Cancer, Chronic Obstructive Pulmonary Disease (COPD), Coronary Artery Disease, Diabetes Mellitus Type 2, Hyperlipidemia, Hypertension, Myocardial Infarction Denies:: MRSA *Have you ever received a pneumonia vaccine?: Yes *Have you received a flu vaccine this season?: Yes Other Medical History: Reports: Arthritis, Cataracts Anesthesia experience/problems:: nac Other Surgeries: Yes: Angioplasty, Appendectomy, CABG, Cancer Surgery (SQUAMOUS CELL CARCINOMA FACE), Cardiac Catheterization, Cardiac Surgery, Cholecystectomy, Coronary Stent, Hysterectomy-Total, Other (KIDNEY AND BLADDER RECON) Amputation: No - *Social History Smoking Status: Current every day smoker Tobacco Type: cigarettes # Packs/Day (cigarettes): 1 (up to 3 packs per day at times) #Yrs smoked (if former smoker): 50 Alcohol Intake: never Substance Use Type: denies use *Occupational Status:: retired Housing: house *Travel in the last 8 weeks: None Family Hx:: Cancer, Coronary Artery Disease, Diabetes, Heart Attack, Stroke
--- NOTE | 2020-05-01 16:39 | P.PN_ITS ---
[facility] Anesthesia Record Part I Intake, IV Amount: 700 Estimated blood loss (mL): 20 Urine output (mL): 50 Blood Products used (#): none Blood Pressure: 172/72 SaO2: 97 Pulse Rate: 56 Respiratory Rate: 18 Temperature: 97.7 F Patient is:: Drowsy, Stable Stable to PACU at:: 16:34
--- NOTE | 2020-05-01 17:32 | HMH.OPNOTE ---
Date of procedure: 05/01/20 Pre-op Diagnosis:: Subcapital femoral neck fracture, right Post-op Diagnosis:: Same Procedure performed:: Cannulated screw fixation, right hip Surgeon:: Chava Soria MD General Surgeon(s):: Meme Villavicencio BURIAL AGENT:: Silvestre Crowder Anesthesia: GETA Estimated blood loss (mL): 20 Clinical Note:: Patient is a 65-year-old female who sustained a closed impacted fracture neck of right femur following a mechanical fall about 10 days ago. Internal fixation with cannulated hip screws was indicated to relieve pain and restore function. Please refer to my consult note for full details. Operative findings:: Closed nondisplaced impacted femoral neck fracture right hip as noted on the preoperative hip imaging. An irregular calcific deposit was noted in the soft tissues over the greater trochanter. This was removed and sent for histopathological examination. The proximal femur bone quality is good. Operative note:: On the day of the procedure the patient was met on the floor, and a physical examination was performed. The operative side and site were marked and initialed by me. I have again reviewed the clinical and imaging findings with the patient. I have discussed the diagnosis and management options in detail including both nonsurgical and surgical. We discussed the surgical options in the form of cannulated hip screw fixation versus total hip arthroplasty. We discussed the pros and cons of these procedures. Given that the fracture appears to be stable with impaction, patient elected for a cannulated hip screw fixation. We discussed the possibility of nonunion, avascular necrosis, loss of fixation and the likely need for further surgery in future if we elected this option. I explained the procedure, risks and benefits, alternatives and the expected postoperative course. I explained with drawings and x-ray pictures of the fracture and the proposed surgical procedure. The complications discussed include but are not limited to- infection, injury to nerves and blood vessels, DVT and PE, femur fracture, limb length inequality, implant failure, nonunion, malunion, avascular necrosis, loss of fixation, heterotopic ossification, incomplete relief of pain, incomplete return of function or motion, likely need for further surgery in future including conversion to a shai-or total hip arthroplasty, anesthetic/medical complications including heart attack, stroke, transfusion reactions and even . We discussed how any of these events can be devastating. We have discussed nonsurgical alternatives as well. We also discussed the postoperative course including the rehab and physical therapy required. All the questions were answered and patient verbalized a good understanding. Patient understood the risks, agreed to proceed with surgery, signed the consent form and no guarantees or assurances were given or implied. Following appropriate preoperative workup and medical clearance, patient was brought to the operating room and a general anesthesia was administered. Patient was then positioned supine on the fracture table and all the bony prominences were appropriately padded. The right foot was secured in the footplate and the footplate was attached to the fracture table. The left leg was placed out of the way in a leg rolon. Under fluoroscopic guidance the fracture was visualized and noted to be still holding good with no change in position compared to the preoperative x-rays. The right hip and thigh were then prepped and draped in the usual sterile fashion. Administration of prophylactic antibiotics was confirmed with the anesthetic team (2 g of IV Ancef was administered). A preprocedure timeout was performed as per the hospital protocol. After marking the level of the greater trochanter on the skin and the proposed screw trajectory under fluoroscopy, a skin incision was made for the lateral approach to the proximal femur. The dissection was then carried through sub
--- NOTE | 2020-05-01 17:47 | PC.NURSE ---
1708-detailed report called to DANIEL Brock 171-pt transported to OB room 278 via hospital bed with sowmya rails up per DANIEL Castillo and [facility] and left in care of DANIEL Brock with bed locked in lowest position, vss, pt stable
--- NOTE | 2020-05-01 20:30 | HMH.ANESII ---
[facility] Anesthesia Record Part II Discharge Time: 17:04 Destination: Medical Surgical Department PACU nurse assessment reviewed?: Yes Patient Condition:: Good Anesthesia Complications:: None Swallowing reflex intact?: Yes Cyanosis?: No Blood Pressure: 173/82 Pulse Rate: 56 Temperature: 97.7 F Mental Status: Alert & Oriented Pain level:: 5 Nausea and/or vomitting:: None Intake, IV Amount: 50
[2020-05-01 20:40] LABS: POC Glucose,Bedside 151 (70-110)
--- NOTE | 2020-05-01 20:40 | PC.NURSE ---
Dr. Thorpe called for Pt's B/P being in the 200's systolic and 90's diastolic, Previous shift already medicated over an hour prior. Pt's pain medication was already given. Orders given to give 1/2 in of nitro paste now.
[2020-05-02] VITALS (15 sets, daily range): BP systolic 165–204; BP diastolic 74–86; PULSE 54–73; RESP 16–20; TEMP 36.7–36.9; O2SAT 94–99; BMI 16.5
--- NOTE | 2020-05-02 03:22 | PC.NURSE ---
Pt has slept in interval during this shift. BLT lung sounds clear throughout, bowel sounds present in all 4 quadrants, IV patent and infusing with NS @75ml/hr, Catheter patent and draining clear/yellow urine. At beginning of shift Pt had B/P problems, Orders were given from Dr. Thorpe for 1/2 inch of nitro paste. Pain is under control at this time. Rt hip dressing CDI, Pt to stay on bedrest.
[2020-05-02 05:36] LABS: POC Glucose,Bedside 235 (70-110)
[2020-05-02 07:07] LABS: Basophils % 0.3 % (0.1-2.0); Eosinophils # 0.2 K/mm3 (0.0-0.4); Eosinophils % 1.9 % (0.1-12.0); Hematocrit 43.9 % (37.0-47.0); Hemoglobin 13.7 g/dL (12.2-16.2); Lymphocytes # 1.3 K/mm3 (0.7-4.5); Lymphocytes % 14.3 % (10-50); Mean Corpuscular HGB Conc 31.2 g/dL (31.8-35.4); Mean Corpuscular Hemoglobin 30.7 pg (27.0-31.2); Mean Corpuscular Volume 98.5 fl (81-99); Mean Platelet Volume 8.2 fl (7.4-10.4); Monocytes # 0.5 K/mm3 (0.1-1.0); Monocytes % 5.2 % (1.7-9.3); Neutrophils # 7.1 K/mm3 (1.8-7.8); Neutrophils % 78.4 % (37.0-80.0); Platelet Count 218 K/mm3 (142-424); Red Blood Count 4.45 M/mm3 (4.20-5.40); Red Cell Distribution Width 13.6 % (11.5-17.5); White Blood Count 9.1 K/mm3 (4.8-10.8)
[2020-05-02 07:11] LABS: Chloride 100 mmol/L (98-107); Potassium 4.7 mmoL/L (3.5-5.1); Sodium 133 mmol/L (136-145)
[2020-05-02 07:13] LABS: Alanine Aminotransferase 11 U/L (12-78); Aspartate Amino Transferase 23 U/L (14-36); Blood Urea Nitrogen 17 mg/dl (7-17); Creatinine Clearance Estimated 38 mL/min (50-200); Estimated Glomerular Filt Rate 72 ml/min (>60); GFR (African American) 87 ML/MIN (>60)
[2020-05-02 07:14] LABS: Albumin/Globulin Ratio 1.2 (1.1-1.8); Alkaline Phosphatase 125 U/L (38-126); Anion Gap 6.7 mEq/L (5-15); Bilirubin,Total 0.3 mg/dl (0.2-1.3); Calcium 8.4 mg/dl (8.4-10.2); Carbon Dioxide 31 mmol/L (22.0-30.0); Globulin 2.5 g/dL (1.3-3.2); Glucose 246 mg/dl (74-100); Total Protein,Serum 5.5 g/dl (6.3-8.2)
--- NOTE | 2020-05-02 08:30 | PC.NURSE ---
Report given to dr. arellano on patients bp- told md that i just had given her, her usual morning medications. md states to call him if needed. md states he will also order prn clonidine po for bp over 180/100. all orders r/v, also ordered patient 1800cal diabetic diet.
[2020-05-02 08:36] LABS: POC Glucose,Bedside 205 (70-110)
--- NOTE | 2020-05-02 08:47 | HMH.ACPN2 ---
Internal Medicine - PN: Subj *Date: 05/02/20 *Time: 08:47 Interval history: Patient is hungry and wants to eat. Exam Vital signs and Labs for Last 24 Hours: Temp Pulse Resp BP Pulse Ox 98.2 F 73 18 204/86 H 97 05/02/20 07:56 05/02/20 07:56 05/02/20 07:56 05/02/20 07:56 05/02/20 07:56 Laboratory Results - last 24 hr 04/29/20 23:22: POC Glucose 47 L* 04/29/20 23:29: POC Glucose 43 L* 05/01/20 00:18: POC Glucose 45 L* 05/01/20 00:21: POC Glucose 45 L* 05/01/20 08:55: Potassium 5.1 D 05/01/20 11:21: POC Glucose 235 H 05/01/20 14:20: POC Glucose 176 H 05/01/20 20:27: POC Glucose 151 H 05/02/20 05:28: POC Glucose 235 H 05/02/20 06:55: WBC 9.1, RBC 4.45, Hgb 13.7, Hct 43.9, MCV 98.5, MCH 30.7, MCHC 31.2 L, RDW 13.6, Plt Count 218, MPV 8.2, Neut % (Auto) 78.4, Lymph % (Auto) 14.3, Crisp % (Auto) 5.2, Eos % (Auto) 1.9, Baso % (Auto) 0.3, Neut # (Auto) 7.1, Lymph # (Auto) 1.3, Crisp # (Auto) 0.5, Eos # (Auto) 0.2, Baso # (Auto) 0.0 05/02/20 06:55: Sodium 133 L, Potassium 4.7, Chloride 100, Carbon Dioxide 31 H, Anion Gap 6.7, BUN 17 D, Creatinine 0.80, Estimated Creat Clear 38, Estimated GFR 72, Est GFR ( Amer) 87 D, Glucose 246 H, Calcium 8.4, Total Bilirubin 0.3, AST 23, ALT 11 L, Alkaline Phosphatase 125, Total Protein 5.5 L D, Albumin 3.0 L, Globulin 2.5, Albumin/Globulin Ratio 1.2 11/03/20 08:04: POC Glucose 205 H Vital Signs - 24 hr 05/01/20 11:18 05/01/20 11:30 05/01/20 16:34 Temperature 98.6 F 97.7 F Pulse Rate 58 L Pulse Rate [Apical] 56 L Pulse Rate [Left Brachial] Pulse Rate [Left Radial] 54 L Respiratory Rate 20 18 Blood Pressure Blood Pressure [Left Arm] 176/76 H 172/72 H 02 Sat by Pulse Oximetry 94 L 97 05/01/20 16:41 05/01/20 16:44 05/01/20 16:54 Temperature 97.7 F Pulse Rate 56 L Pulse Rate [Apical] 57 L 59 L Pulse Rate [Left Brachial] Pulse Rate [Left Radial] Respiratory Rate 18 16 18 Blood Pressure 172/72 H Blood Pressure [Left Arm] 174/80 H 179/76 H 02 Sat by Pulse Oximetry 96 94 L 05/01/20 17:04 05/01/20 17:05 05/01/20 17:14 Temperature 97.7 F Pulse Rate Pulse Rate [Apical] 60 56 L Pulse Rate [Left Brachial] Pulse Rate [Left Radial] Respiratory Rate 18 18 20 Blood Pressure Blood Pressure [Left Arm] 163/73 H 173/82 H 02 Sat by Pulse Oximetry 95 96 05/01/20 17:20 05/01/20 17:35 05/01/20 17:50 Temperature 97.8 F 97.6 F 97.5 F L Pulse Rate Pulse Rate [Apical] Pulse Rate [Left Brachial] 57 L 55 L 58 L Pulse Rate [Left Radial] Respiratory Rate 22 20 19 Blood Pressure Blood Pressure [Left Arm] 200/84 H 214/92 H 196/84 H 02 Sat by Pulse Oximetry 91 L 91 L 90 L 05/01/20 18:05 05/01/20 18:20 05/01/20 18:50 Temperature 97.9 F 97.5 F L 97.6 F Pulse Rate Pulse Rate [Apical] Pulse Rate [Left Brachial] 55 L 53 L 55 L Pulse Rate [Left Radial] Respiratory Rate 20 22 20 Blood Pressure Blood Pressure [Left Arm] 221/94 H 203/90 H 229/93 H 02 Sat by Pulse Oximetry 91 L 93 L 95 05/01/20 19:20 05/01/20 19:31 05/01/20 19:50 Temperature 97.7 F 97.8 F Pulse Rate 56 L Pulse Rate [Apical] Pulse Rate [Left Brachial] 56 L 58 L Pulse Rate [Left Radial] Respiratory Rate 18 19 Blood Pressure Blood Pressure [Left Arm] 215/92 H 213/111 H 02 Sat by Pulse Oximetry 92 L 95 05/01/20 20:00 05/01/20 20:20 05/01/20 20:31 Temperature 97.8 F 97.7 F Pulse Rate 56 L Pulse Rate [Apical] Pulse Rate [Left Brachial] 56 L 56 L Pulse Rate [Left Radial] Respiratory Rate 20 Blood Pressure 173/82 H Blood Pressure [Left Arm] 210/76 H 02 Sat by Pulse Oximetry 98 95 05/01/20 21:20 05/01/20 22:20 05/01/20 23:20 Temperature 98.0 F 97.8 F 98.0 F Pulse Rate Pulse Rate [Apical] Pulse Rate [Left Brachial] 54 L 63 55 L Pulse Rate [Left Radial] Respiratory Rate 18 18 17 Blood Pressure Blood Pressure [Left Arm] 187/82 H 173/80 H 183/82 H 02 Sat by Pulse Oximetry 94 L 97 95
--- NOTE | 2020-05-02 09:15 | HMH.PNCARD ---
Subjective Date: 05/02/20 Time: 09:15 Principal diagnosis: Fracture neck of femur, right Interval history: 65-year-old white female in bed in no acute distress. However patient does relate significant pain at her hip fracture/surgery site. She relates this is being worse than when she broke it. Patient has had elevated blood pressures through the night which she feels is related to the uncontrolled pain. She denies any chest pain, pressure or tightness. In order to treat the blood pressure she has been started on clonidine as well as transdermal nitroglycerin in addition to her beta-helen and lisinopril and Norvasc. Exam Vital signs and Labs for Last 24 Hours: Temp Pulse Resp BP Pulse Ox 98.2 F 73 18 204/86 H 97 05/02/20 07:56 05/02/20 07:56 05/02/20 07:56 05/02/20 07:56 05/02/20 07:56 Laboratory Results - last 24 hr 04/29/20 23:22: POC Glucose 47 L* 04/29/20 23:29: POC Glucose 43 L* 05/01/20 00:18: POC Glucose 45 L* 05/01/20 00:21: POC Glucose 45 L* 05/01/20 11:21: POC Glucose 235 H 05/01/20 14:20: POC Glucose 176 H 05/01/20 20:27: POC Glucose 151 H 05/02/20 05:28: POC Glucose 235 H 05/02/20 06:55: WBC 9.1, RBC 4.45, Hgb 13.7, Hct 43.9, MCV 98.5, MCH 30.7, MCHC 31.2 L, RDW 13.6, Plt Count 218, MPV 8.2, Neut % (Auto) 78.4, Lymph % (Auto) 14.3, [place] % (Auto) 5.2, Eos % (Auto) 1.9, Baso % (Auto) 0.3, Neut # (Auto) 7.1, Lymph # (Auto) 1.3, [place] # (Auto) 0.5, Eos # (Auto) 0.2, Baso # (Auto) 0.0 05/02/20 06:55: Sodium 133 L, Potassium 4.7, Chloride 100, Carbon Dioxide 31 H, Anion Gap 6.7, BUN 17 D, Creatinine 0.80, Estimated Creat Clear 38, Estimated GFR 72, Est GFR ( Amer) 87 D, Glucose 246 H, Calcium 8.4, Total Bilirubin 0.3, AST 23, ALT 11 L, Alkaline Phosphatase 125, Total Protein 5.5 L D, Albumin 3.0 L, Globulin 2.5, Albumin/Globulin Ratio 1.2 05/02/20 08:04: POC Glucose 205 H I & O for Last 24 hours: Intake & Output 04/29/20 04/30/20 05/01/20 05/02/20 12:59 11:59 11:59 11:59 Intake Total 879 / 879 1751 / 1751 Output Total 1025 / 1025 650 / 650 Balance -146 / -146 1101 / 1101 Weight 208 lb 5.389 oz 93 lb 8 oz - *Routine HEENT Exam Head: Present: normocephalic Eye: Present: EOMI, PERRL ENT: Present: mucous membranes moist - *Routine Respiratory Exam Present: CTA bilaterally - *Routine Cardiovascular Exam Present: RRR - *Routine Extremities Exam Absent: cyanosis, clubbing, edema - *Routine Neurological Exam Present: alert, oriented X3 Progress Note: A&P (1) Hip fracture Status: Acute (2) CAD (coronary artery disease) Status: Acute (3) COPD (chronic obstructive pulmonary disease) Status: Acute (4) Tobacco use disorder Status: Acute (5) Pancreatic insufficiency Status: Acute (6) Hyperglycemia due to type 2 diabetes mellitus Status: Acute (7) Diabetes mellitus, insulin dependent (IDDM), uncontrolled Status: Acute (8) Renal insufficiency Status: Acute (9) Lumbar back pain Status: Acute (10) CKD stage 2 due to type 2 diabetes mellitus Status: Acute Assessment and Plan for All Diagnoses:: 1. Status post hip fracture repair 2. Hypertension/hypertensive heart disease, poorly controlled in setting of uncontrolled pain. Will discontinue metoprolol and switch to carvedilol 25 mg twice daily hopefully for better blood pressure control. Echocardiogram this admission shows ejection fraction 55% with mild concentric LVH/grade 1 diastolic dysfunction and no regional wall motion abnormalities. 3. Coronary artery disease, clinically stable 4. Diabetes mellitus, per PCP Clinically stable from a cardiac standpoint. Nothing further to add at this time. Please call if needed.
--- NOTE | 2020-05-02 09:45 | PC.NURSE ---
IV TO RIGHT OUTER AC LEAKING. REMOVED. PATIENT STUCK TOTAL OF 7 STICKS. PT TOLERATED WELL AND WAS ABLE TO SUCCESSFULLY GET 20 TO RIGHT INNER AC
--- NOTE | 2020-05-02 11:27 | HMH.PULMPN ---
Internal Medicine - PN: Subj *Date: 05/02/20 *Time: 11:27 Interval history: No acute respiratory events overnight. Patient status post OR for hip fixation with stable respiratory status Exam - Constitutional Constitutional:: no acute distress, comfortable, healthy appearing, cooperative - HENMT Exam HENMT: normocephalic, atraumatic, head normal to inspection, face & sinuses non-tender, oral mucosa normal, moist mucous membranes, posterior oropharanx norm - Eye Exam Eyes:: normal appearance both eyes and related structures, eyelids normal, normal conjunctiva, normal sclera - Neck Exam Neck:: normal visual inspection, thyroid normal, no lymphadenopathy - Respiratory Exam Respiratory:: able to speak in complete sentences, normal breath sounds Comments: No wheeze heard today - Cardiovascular Exam Cardiac:: regular rhythm, S1, S2 - GI Exam GI:: soft, no hepatosplenomegaly, normal to inspection, normoactive bowel sounds, no tenderness - Skin Exam Skin: no rash, normal elastacity, no lesions, normal turgor - Neurological Exam Neurological: alert, awake, oriented X3 - Extremities Exam Extremities: no cyanosis, no clubbing, no edema - Psychiatric Exam Psychiatric: normal affect, appearance grossly normal, affect normal, attitude normal, no homicidal ideation, no suicidal ideation Assessment and Plan (1) Hip fracture Status: Acute Qualifiers: Encounter type: initial encounter Fracture type: closed Laterality: right Qualified Code(s): S72.001A - Fracture of unspecified part of neck of right femur, initial encounter for closed fracture Category: Medical Code(s): S72.009A - Fracture of unspecified part of neck of unspecified femur, initial encounter for closed fracture (2) CAD (coronary artery disease) Status: Acute Category: Medical Code(s): I25.10 - Atherosclerotic heart disease of [place] coronary artery without angina pectoris (3) COPD (chronic obstructive pulmonary disease) Status: Acute Category: Medical Code(s): J44.9 - Chronic obstructive pulmonary disease, unspecified (4) Tobacco use disorder Status: Acute Category: Medical Code(s): F17.200 - Nicotine dependence, unspecified, uncomplicated (5) Pancreatic insufficiency Status: Acute Category: Medical Code(s): K86.89 - Other specified diseases of pancreas (6) Hyperglycemia due to type 2 diabetes mellitus Status: Acute Category: Medical Code(s): E11.65 - Type 2 diabetes mellitus with hyperglycemia (7) Diabetes mellitus, insulin dependent (IDDM), uncontrolled Status: Acute Category: Medical (8) Renal insufficiency Status: Acute Category: Medical Code(s): N28.9 - Disorder of kidney and ureter, unspecified (9) Lumbar back pain Status: Acute Category: Medical Code(s): M54.5 - Low back pain (10) CKD stage 2 due to type 2 diabetes mellitus Status: Acute Category: Medical Code(s): E11.22 - Type 2 diabetes mellitus with diabetic chronic kidney disease; N18.2 - Chronic kidney disease, stage 2 (mild) - Assessment and plan all Dx Assessment and Plan for all problems:: #COPD: Stable not in exacerbation 65-year-old significant smoking history carries a diagnosis COPD DuoNebs as needed presented to the hospital with hip fracture s/p fixation. Patient respiratory status stable at baseline. Patient currently on DuoNebs every 6 hours along with budesonide as needed Chest clear to auscultate today patient remained on room air with no distress. Plan: -Continue DuoNebs every 6 hours scheduled along with budesonide every 12 hours (patient can be discharged on triple inhaler therapy when deemed appropriate by the primary team) -We will follow in the clinic in 6 weeks with full PFTs and bronchodilation testing -Rest of the care as per primary team Thank you for involving pulmonary in this patient care. We will continue to follow.
--- NOTE | 2020-05-02 12:55 | PC.NURSE ---
Amaya with care management went over discharge planning at this time. Patient advised that she needs to participate with PT.
--- NOTE | 2020-05-02 13:16 | PC.NURSE ---
PT in to see patient at this time.
--- NOTE | 2020-05-02 13:20 | PC.NURSE ---
Patient up to chair per PT.
--- NOTE | 2020-05-02 13:57 | HMH.OTEV ---
OT Inpatient Evaluation Rehab OT IP Evaluation Start: 05/01/20 17:21 Freq: ONCE Status: Complete Protocol: Document 05/02/20 13:50 [facility] (Rec: 05/02/20 13:56 [facility] [id number]) Rehab OT IP Assessment Subjective History Pt oriented x 3 on arrival. Pt agreeable to engage in therapy evaluation. Pt was admitted via ED on 04/29/20 via ED for R hip pain. Pt fell a week prior to going to ER and was continuing to have right hip pain. Pt was diagnosed with R hip fx. Pt had an ORIF cannulated screw fixation on 05/01/20. Pt has a past medical history of Type 2 diabetes, CAD, COPD, chronic narcotic use, and pancreatic insufficiency. Pt reports she lived at home prior to fall and was independent with all ADL's and IADL's. Pt did not require any AE. Pt also still drove. Subjective Sorry I've just been exhausted. Objective Patient Orientation Person,Place,Birthday Upper Extremity Gross ROM WFL Bed Mobility bed mobility-scooting,bed mobility - supine/sit,bed mobility - rolling Assist Level Supervision/Stand by Transfer Training Sit/Stand Transfer Assist Level Contact Guard/Hand Hold Chair Transfer Ability Supervision/Stand by Chair Transfer Technique Sit to/from Ambulatory Chair Transfer Assistive Devices Standard Walker Rehab OT IP prob,goals,plan Problems Date of Evaluation: 05/02/20 OT IP Problems Bed Mobility,Transfers,Gait, Balance,Self care,Safety Rehab Potential Rehab Potential Good Equipment Needs Assistive Devices Standard Walker Plan OT intervention Plan Bed Mobility,Transfers,Gait OT Plan Frequency Daily Duration LOS Discharge Goals Bed Mobility Ability Standby Assistance Sit to Stand Chair Transfer Ability Supervision/Stand by Chair Transfer Ability Supervision/Stand by Chair Transfer Technique Sit to/from Ambulatory Chair Transfer Assistive Devices Standard Walker Self care skills fully toilet trained,uses
--- NOTE | 2020-05-02 14:07 | HMH.PTEV ---
Physical Therapy Evaluation Rehab PT IP Evaluation Start: 05/01/20 17:21 Freq: ONCE Status: Active Protocol: Document 05/02/20 13:00 [facility] (Rec: 05/02/20 14:06 [facility] [id number]) Subjective/History History History This is the initial IP PT evaluation for Mariia Jo. Pt is a 65 y/o female admitted to [facility] 1 week after fall at home causing R hip fx. Pt was ambulatory for 1 week w/ fx before going to ER d/t uneasing pain. Xray in ER showed R hip fx. ORIF performed. Subjective Subjective Pt reports some c/o pain but only minimal in wbing Rehab PT IP Eval Objective Appearance Patient Behavior Appropriate,Cooperative Patient Orientation Person,Place,Time Difficulty following instructions none Speech Pattern Clear,Appropriate Ambulation Patient Able to Ambulate Yes Ambulation Observation IP General Gait Pattern Observation Antalgic Gait Ambulation Distance (feet) 15 Ambulation Assistive Device Standard Walker Ambulation Ability Contact Guard/Hand Hold Balance Ability to Arise Able, uses arms to help Sitting Balance Steady, safe Standing Balance Steady, wide stance Dynamic Sitting Balance Ability Normal Dynamic Standing Balance Ability Fair Transfers Bed Transfer Ability Supervision/Stand by Chair Transfer Ability Supervision/Stand by Sit to Stand Bed Transfer Ability Contact Guard/Hand Hold Sit to Stand Chair Transfer Ability Contact Guard/Hand Hold ROM All Extremities PT ROM Status WFL MMT RLE PT MMT ABN Abnormal MMT Grade 3-/5 r hip Rehab PT IP prob,goals,plan Problems Date of Evaluation: 05/02/20 PT IP Problems Transfers,Gait,Self care, Safety Rehab Potential Rehab Potential Fair Equipment Needs Assistive Devices Rolling / Wheeled Walker Plan PT Intervention Plan Transfers,Gait,Therapeutic Exercise PT Plan Frequency BID Duration LOS Discharge Goals Bed Transfer Ability Supervision/Stand by Sit to Stand Chair Transfer Ability Contact Guard/Hand Hold Ambulation Assistive Device Rolling Walker Ambulation Distance (feet) 25 Discharge Plan PT Discharge Plan due to pt living alone - pt would benefit from skilled
--- NOTE | 2020-05-02 14:26 | SW/DCPLANNER ---
Addendum entered by Amaya Gonzales 05/05/20 10:10: PATIENT IS DISCHARGING TO [facility] TODAY FOR SKILLED LEVEL OF CARE.. SHE WILL GO BY AMBULANCE.. I HAVE NOTIFIED [facility] OF HER ADMISSION.. Addendum entered by Amaya Gonzales 05/03/20 13:28: THIS PATIENT HAD REQUESTED [facility], I DID MAKE CONTACT AND THEY ARE CURRENTLY NOT ACCEPTING PATIENT R/T A COVID BREAKOUT.. HER SECOND CHOICE WAS [facility], I SENT HER INFORMATION AND SHE HAS BEEN ACCEPTED AND CAN DISCHARGE THERE [facility] PENDING NO SETBACKS..PATIENT WAS IN AGREEMENT OF THE PLAN... Original Note: WENT IN TO SEE PATIENT THIS AFTERNOON REGARDING HER DISCHARGE PLANNING: PATIENT HAD REFUSED PT THIS MORNING STATING SHE DIDN'T FEEL LIKE PARTICIPATING.. I TOLD HER THE IMPORTANCE IN GETTING UP WITH THERAPY.. THOSE NOTES WILL BE SENT TO THE REHAB FACILITY AND IF SHE DOESN'T PARTICIPATE HER INSURANCE WILL NOT APPROVE HER TO GO... THE THERAPISTS CAME IN AND SHE DID PARTICIPATE THIS AFTERNOON AND DID WELL...(SEE PT EVALUATION)... PATIENT ASKED TO GO TO [facility] BUT I EXPLAINED TO HER THERE ARE NO BEDS AT [facility] AND THEY ARE NOT ANTICIPATING ANY BEDS THIS WEEK.. SHE CHOSE [facility] IN [facility], WILL MAKE CONTACT ONCE I KNOW WHEN PATIENT IS READY FOR A DISPOSITION TO CHECK ON BED AVAILABILITY...
--- NOTE | 2020-05-02 14:38 | HMH.ORTHPN ---
Subjective Date: 05/02/20 Time: 13:00 Principal diagnosis: Fracture neck of femur, right Interval history: Patient is status post cannulated screw fixation, right hip, post op day # 1. She is lying down in bed. She says she is doing well and pain is gradually improving. No history of any fevers, chills or rigors. No history of any nausea, vomiting, chest pain or SOB. PN: Obj Ex Vital signs: Temp Pulse Resp BP Pulse Ox 98.0 F 63 16 170/74 H 95 05/02/20 11:52 05/02/20 11:52 05/02/20 11:52 05/02/20 11:52 05/02/20 11:52 Narrative: Laboratory Results - last 24 hr 05/01/20 20:27: POC Glucose 151 H 05/02/20 05:28: POC Glucose 235 H 05/02/20 06:55: WBC 9.1, RBC 4.45, Hgb 13.7, Hct 43.9, MCV 98.5, MCH 30.7, MCHC 31.2 L, RDW 13.6, Plt Count 218, MPV 8.2, Neut % (Auto) 78.4, Lymph % (Auto) 14.3, [place] % (Auto) 5.2, Eos % (Auto) 1.9, Baso % (Auto) 0.3, Neut # (Auto) 7.1, Lymph # (Auto) 1.3, [place] # (Auto) 0.5, Eos # (Auto) 0.2, Baso # (Auto) 0.0 05/02/20 06:55: Sodium 133 L, Potassium 4.7, Chloride 100, Carbon Dioxide 31 H, Anion Gap 6.7, BUN 17 D, Creatinine 0.80, Estimated Creat Clear 38, Estimated GFR 72, Est GFR ( Amer) 87 D, Glucose 246 H, Calcium 8.4, Total Bilirubin 0.3, AST 23, ALT 11 L, Alkaline Phosphatase 125, Total Protein 5.5 L D, Albumin 3.0 L, Globulin 2.5, Albumin/Globulin Ratio 1.2 05/02/20 08:04: POC Glucose 205 H Exam General appearance: Alert, awake, no acute distress Cardiovascular: regular rate & rhythm Respiratory: no respiratory distress, speaking in full sentences ABD: soft and nontender. Bowel sounds heard over all 4 quadrants. Neuro: Alert and oriented x3 On examination of her right lower extremity, the limb lengths are equal. The alignment is neutral. The dressings over the right hip are clean, dry and intact. Attempted movements of the hip are painful. Distal neurovascular status is intact. No clinical signs of DVT - Urinary Catheter Management Gaona Cath placed during this visit: no Progress Note: A&P (1) Hip fracture Status: Acute (2) CAD (coronary artery disease) Status: Acute (3) COPD (chronic obstructive pulmonary disease) Status: Acute (4) Tobacco use disorder Status: Acute (5) Pancreatic insufficiency Status: Acute (6) Hyperglycemia due to type 2 diabetes mellitus Status: Acute (7) Diabetes mellitus, insulin dependent (IDDM), uncontrolled Status: Acute (8) Renal insufficiency Status: Acute (9) Lumbar back pain Status: Acute (10) CKD stage 2 due to type 2 diabetes mellitus Status: Acute Assessment and Plan for All Diagnoses:: I have reviewed the procedure and progress with the patient. I have given her a copy the postoperative x-rays and explained the procedure performed. She can mobilize with the help of physical therapist weightbearing on the right side as tolerated. Continue PT/OT, pain management with as needed narcotic analgesics. Continue medical management as per Dr. Lackey's team.
[2020-05-02 15:02] LABS: POC Glucose,Bedside 278 (70-110)
[2020-05-02 16:33] LABS: POC Glucose,Bedside 234 (70-110)
--- NOTE | 2020-05-02 16:42 | PC.NURSE ---
Patient has remained stable today. Her incision site is covered in foam tape dressing and is clean, dry and intact. She got up to the chair with PT and back to the bed with assist X1. She tolerated ambulation well. Lungs have expiratory wheezing throughout all wing. Bowel sounds are active in all quadrants. Patient has requested medication for gas, but has had no other complaints. Pain has been well controlled this shift.
--- NOTE | 2020-05-02 17:17 | PC.NURSE ---
all charting and care done under my direct supervision.
[2020-05-02 22:00] LABS: POC Glucose,Bedside 193 (70-110)
--- NOTE | 2020-05-02 22:05 | PC.NURSE ---
HAD TOLD PT THAT SHE WOULD HAVE TO TRY AND VOID BEFORE MIDNIGHT OR A MEDERSO WOULD HAVE TO BE PLACED AGAIN,SO PT WANTED TO TRY AND GO BEFORE SHE WENT TO SLEEP AND HAD TO GET UP AND GO.ASSISTED PT X 2 TO BATHROOM AND GOT TO THE CHAIR WHERE SHE HAD EARLIER DURING THE DAY WITH PT AND GOT VERY WEAK,ASSISTED PT BACK TO SIDE OF BED AND A BSC WAS GOTTEN WHERE PT VOIDED 500ML CLEAR YELLOW URINE.
[2020-05-03] VITALS (10 sets, daily range): BP systolic 136–210; BP diastolic 53–80; PULSE 59–74; RESP 16–20; TEMP 36.8–37.2; O2SAT 91–96; BMI 16.5
[2020-05-03 05:02] LABS: POC Glucose,Bedside 213 (70-110)
--- NOTE | 2020-05-03 06:00 | PC.NURSE ---
PT LUNGS SOUND MUCH BETTER THIS MORNING.BOWEL SOUNDS POSITIVE X4 QUADS,PT HAS VOIDED ONCE THIS SHIFT 500ML.NO DRAINAGE TO DRESSING ON RIGHT HIP,SWELLING NOTED AND ICE HAS BEEN APPLIED A COUPLE TIMES TONIGHT.PT HAS BEEN MEDICATED SEVERAL TIMES TONIGHT WITH PAIN RANGING FROM A 7-9.ON SCALE OF 0-10.SHE SAY HAS HAD SOME SPASMS IN HER RIGHT HIP.THIS MORNING POSITIONED PT TO BACK OFF HER LEFT HIP,PILLOWS PLACED TO RIGHT TO PROP HIP A LITTLE.HER B/P HAS BEEN ELEVATED THROUGHTOUT THE NIGHT AND WAS GIVEN CLONIDINE 0.1 MG PO FOR THAT.WILL CONTINUE TO MONITOR
--- NOTE | 2020-05-03 06:23 | PC.NURSE ---
RESPIRATORY HERE TO GIVE HER HER NEB TREATMENT,SHE REFUSED ONE EARLIER.
--- NOTE | 2020-05-03 08:00 | HMH.ACPN2 ---
<Kaykay Miller - Last Filed: 05/03/20 08:29> Internal Medicine - PN: Subj *Date: 05/03/20 *Time: 08:29 Interval history: Patient states she has postoperative right hip pain. She says the pain medicine does help. She has been up and used her walker. She finally voided last night about 500 cc. She passes gas but her bowels have not moved. Blood pressures been elevated requiring a dose of Klonopin during the night. She denies chest pain and states her breathing is doing well. Exam Vital signs and Labs for Last 24 Hours: Temp Pulse Resp BP Pulse Ox 98.2 F 68 16 177/76 H 91 L 05/03/20 04:45 05/03/20 06:10 05/03/20 04:45 05/03/20 04:45 05/03/20 06:10 Laboratory Results - last 24 hr 05/02/20 08:04: POC Glucose 205 H 05/02/20 11:26: POC Glucose 278 H 05/02/20 16:23: POC Glucose 234 H 05/02/20 21:25: POC Glucose 193 H 05/03/20 04:52: POC Glucose 213 H I & O for Last 24 hours: Intake & Output 04/30/20 05/01/20 05/02/20 05/03/20 11:59 11:59 11:59 11:59 Intake Total 879 / 879 1751 / 1751 480 / 480 Output Total 1025 / 1025 1500 / 1500 500 / 500 Balance -146 / -146 251 / 251 -20 / -20 Weight 208 lb 5.389 oz 93 lb 8 oz 93 lb 7.616 oz - Constitutional no acute distress Comments: Sitting up in bed eating her breakfast. - *Routine Respiratory Exam Present: wheezes Comments: Better air movement today. Less wheezing noted posteriorly - *Routine Cardiovascular Exam Present: RRR - *Routine Abdominal Exam Present: soft, normoactive bowel sounds. Absent: tenderness, distended - *Routine Extremities Exam Absent: edema, calf tenderness - *Routine Neurological Exam Present: alert, oriented X3 Assessment and Plan (1) Hip fracture Status: Acute Qualifiers: Encounter type: initial encounter Fracture type: closed Laterality: right Qualified Code(s): S72.001A - Fracture of unspecified part of neck of right femur, initial encounter for closed fracture Category: Medical Code(s): S72.009A - Fracture of unspecified part of neck of unspecified femur, initial encounter for closed fracture (2) CAD (coronary artery disease) Status: Acute Category: Medical Code(s): I25.10 - Atherosclerotic heart disease of [place] coronary artery without angina pectoris (3) COPD (chronic obstructive pulmonary disease) Status: Acute Category: Medical Code(s): J44.9 - Chronic obstructive pulmonary disease, unspecified (4) Tobacco use disorder Status: Acute Category: Medical Code(s): F17.200 - Nicotine dependence, unspecified, uncomplicated (5) Pancreatic insufficiency Status: Acute Category: Medical Code(s): K86.89 - Other specified diseases of pancreas (6) Hyperglycemia due to type 2 diabetes mellitus Status: Acute Category: Medical Code(s): E11.65 - Type 2 diabetes mellitus with hyperglycemia (7) Diabetes mellitus, insulin dependent (IDDM), uncontrolled Status: Acute Category: Medical (8) Renal insufficiency Status: Acute Category: Medical Code(s): N28.9 - Disorder of kidney and ureter, unspecified (9) Lumbar back pain Status: Acute Category: Medical Code(s): M54.5 - Low back pain (10) CKD stage 2 due to type 2 diabetes mellitus Status: Acute Category: Medical Code(s): E11.22 - Type 2 diabetes mellitus with diabetic chronic kidney disease; N18.2 - Chronic kidney disease, stage 2 (mild) - Assessment and plan all Dx Assessment and Plan for all problems:: Patient states she plans to go into rehab at [facility] for about 2 to 3 weeks. Discussed smoking cessation and she plans to stop. Blood sugars are better and she remains on sliding scale. Hypertension may be related to her hip pain. Will increase lisinopril and continue with as needed clonidine. <Gildardo Lackey - Last Filed: 05/03/20 08:46> Internal Medicine - PN: Subj *Date: 05/03/20 *Time: 08:45 Exam Vital signs and Labs for Last 24 Hours: Temp Pulse
--- NOTE | 2020-05-03 09:44 | PC.NURSE ---
Physical Therapy at with pt.
--- NOTE | 2020-05-03 10:12 | PC.NURSE ---
Dietary notified of pt requesting jeet shakes with her meals. V/U. Order placed in computer.
[2020-05-03 10:58] LABS: POC Glucose,Bedside 298 (70-110)
--- NOTE | 2020-05-03 11:00 | PC.NURSE ---
Warm blanket provided for patient per request.
--- NOTE | 2020-05-03 11:04 | PC.NURSE ---
Dr. Walters here to see pt. No new orders received at this time.
--- NOTE | 2020-05-03 11:18 | HMH.PULMPN ---
Internal Medicine - PN: Subj *Date: 05/03/20 *Time: 11:18 Interval history: No acute respiratory events overnight, patient remained stable on room air Exam - Constitutional Constitutional:: no acute distress - HENMT Exam HENMT: normocephalic, atraumatic - Eye Exam Eyes:: normal appearance both eyes and related structures - Neck Exam Neck:: normal visual inspection, thyroid normal, no lymphadenopathy - Respiratory Exam Respiratory:: able to speak in complete sentences, lungs clear, normal breath sounds, normal respiratory effort - Cardiovascular Exam Cardiac:: regular rhythm, S1, S2 - GI Exam GI:: soft, no hepatosplenomegaly - Skin Exam Skin: warm - Neurological Exam Neurological: alert, awake, normal cognition - Extremities Exam Extremities: no cyanosis, no clubbing, no edema Assessment and Plan (1) Hip fracture Status: Acute Qualifiers: Encounter type: initial encounter Fracture type: closed Laterality: right Qualified Code(s): S72.001A - Fracture of unspecified part of neck of right femur, initial encounter for closed fracture Category: Medical Code(s): S72.009A - Fracture of unspecified part of neck of unspecified femur, initial encounter for closed fracture (2) CAD (coronary artery disease) Status: Acute Category: Medical Code(s): I25.10 - Atherosclerotic heart disease of [place] coronary artery without angina pectoris (3) COPD (chronic obstructive pulmonary disease) Status: Acute Category: Medical Code(s): J44.9 - Chronic obstructive pulmonary disease, unspecified (4) Tobacco use disorder Status: Acute Category: Medical Code(s): F17.200 - Nicotine dependence, unspecified, uncomplicated (5) Pancreatic insufficiency Status: Acute Category: Medical Code(s): K86.89 - Other specified diseases of pancreas (6) Hyperglycemia due to type 2 diabetes mellitus Status: Acute Category: Medical Code(s): E11.65 - Type 2 diabetes mellitus with hyperglycemia (7) Diabetes mellitus, insulin dependent (IDDM), uncontrolled Status: Acute Category: Medical (8) Renal insufficiency Status: Acute Category: Medical Code(s): N28.9 - Disorder of kidney and ureter, unspecified (9) Lumbar back pain Status: Acute Category: Medical Code(s): M54.5 - Low back pain (10) CKD stage 2 due to type 2 diabetes mellitus Status: Acute Category: Medical Code(s): E11.22 - Type 2 diabetes mellitus with diabetic chronic kidney disease; N18.2 - Chronic kidney disease, stage 2 (mild) - Assessment and plan all Dx Assessment and Plan for all problems:: #COPD: Stable not in exacerbation 65-year-old significant smoking history carries a diagnosis COPD DuoNebs as needed presented to the hospital with hip fracture s/p fixation. Patient respiratory status stable at baseline. Patient currently on DuoNebs every 6 hours along with budesonide as needed Patient remained on room air since admission, chest today clear to auscultate, no respiratory distress. Continue current management and discharge the patient appropriately on triple inhaler therapy when deemed appropriate by the primary team Plan: -Continue DuoNebs every 6 hours scheduled along with budesonide every 12 hours (patient can be discharged on triple inhaler therapy when deemed appropriate by the primary team) -We will follow in the clinic in 6 weeks with full PFTs and bronchodilation testing -Rest of the care as per primary team Thank you for involving pulmonary in this patient care. We will continue to follow.
--- NOTE | 2020-05-03 12:05 | PC.NURSE ---
Dr. Soria at to see pt. Dressing change performed by Dr. Soria. Old dressing removed and site cleaned with chloraprep. New 4x4 foam dressing applied. Pt tolerated well.
--- NOTE | 2020-05-03 16:15 | HMH.ORTHPN ---
Subjective Date: 05/03/20 Time: 12:20 Principal diagnosis: Fracture neck of femur, right Interval history: Patient is status post cannulated screw fixation, right hip, post op day # 2. She is lying down in bed. She says she is doing well and pain is significantly better today and well controlled with as needed pain medication. She says she started mobilization with the help of physical therapy. No history of any fevers, chills or rigors. No history of any nausea, vomiting, chest pain or SOB. PN: Obj Ex Vital signs: Temp Pulse Resp BP Pulse Ox 98.2 F 70 20 168/72 H 92 L 05/03/20 16:00 05/03/20 16:00 05/03/20 16:00 05/03/20 16:00 05/03/20 16:00 Narrative: Laboratory Results - last 24 hr 05/02/20 16:23: POC Glucose 234 H 05/02/20 21:25: POC Glucose 193 H 05/03/20 04:52: POC Glucose 213 H 05/03/20 10:49: POC Glucose 298 H Exam General appearance: Alert, awake, no acute distress Cardiovascular: regular rate & rhythm Respiratory: no respiratory distress, speaking in full sentences ABD: soft and nontender. Bowel sounds heard over all 4 quadrants. Neuro: Alert and oriented x3 On examination of her right lower extremity, the limb lengths are equal. The alignment is neutral. The dressings over the right hip are clean, dry and intact. I have changed the dressings today and the surgical incision looks clean and healthy. No signs of infection noted. Attempted movements of the hip are painful. Distal neurovascular status is intact. No clinical signs of DVT - Urinary Catheter Management Gaona Cath placed during this visit: no Progress Note: A&P (1) Hip fracture Status: Acute (2) CAD (coronary artery disease) Status: Acute (3) COPD (chronic obstructive pulmonary disease) Status: Acute (4) Tobacco use disorder Status: Acute (5) Pancreatic insufficiency Status: Acute (6) Hyperglycemia due to type 2 diabetes mellitus Status: Acute (7) Diabetes mellitus, insulin dependent (IDDM), uncontrolled Status: Acute (8) Renal insufficiency Status: Acute (9) Lumbar back pain Status: Acute (10) CKD stage 2 due to type 2 diabetes mellitus Status: Acute Assessment and Plan for All Diagnoses:: I have reviewed the findings and progress with the patient. I have changed the dressings today and the surgical incision is healthy. Continue mobilization with the help of physical therapist weightbearing on the right side as tolerated. Continue PT/OT, pain management with as needed narcotic analgesics. Recommend DVT prophylaxis for 5 weeks postop- the appropriate agents include Lovenox, Aspirin 325 mg, Xarelto (Rivaroxaban), Eliquis (apixaban) and Coumadin. Follow-up in my office in 2 weeks? time with check x-ray. Please feel free to call our office at [phone] for any orthopaedic questions. Continue medical management as per Dr. Lackey.
--- NOTE | 2020-05-03 16:38 | DIET.NUTRFU ---
PO intakes 75% + TID protein supplements, BG ~220, post op weight gain 4#. Pt has been educated/counseled on increased protein needs, weight maintenance, and DM.
[2020-05-03 16:39] LABS: POC Glucose,Bedside 298 (70-110)
--- NOTE | 2020-05-03 17:18 | PC.NURSE ---
DR. PUGH CALLED TO CHECK ON PT'S CONDITION. NO NEW ORDERS RECEIVED.
[2020-05-03 21:40] LABS: POC Glucose,Bedside 342 (70-110)
--- NOTE | 2020-05-03 21:41 | PC.NURSE ---
PT STILL GRIMACING IN PAIN UNABLE TO GET COMFORTABLE DESPITE ICE AND PRN MORPHINE, PT STATES PAIN REMAINS AT A 9/10 ON PAIN SCALE, MEDICATED AT THIS TIME WITH ADDITIONAL PRN MEDICATION WILL CONTINUE TO MONITOR AT THIS TIME
--- NOTE | 2020-05-03 23:18 | PC.NURSE ---
pt tearful at this time unable to get comfortable, pt states my leg wont stop throbbing pt rates pain 9/10 and in obvious discomfort. dr ghosh was notified at this time of no relief in pain, new orders received for extra dose of morphine 2ng iv now and then increase to q3h prn. phone order was repeated and verified at this time
[2020-05-04] VITALS (8 sets, daily range): BP systolic 132–187; BP diastolic 58–81; PULSE 56–87; RESP 16–20; TEMP 36.7–36.9; O2SAT 91–95
--- NOTE | 2020-05-04 01:23 | PC.NURSE ---
pt was assisted onto bedpan at this time, pt states she does not want to get up because my leg hurts to bad pt denies relief with pain medication continues to rate pain 9/10 on pain, positioned for comfort, ice was removed, will continue to monitor at this time
[2020-05-04 06:05] LABS: POC Glucose,Bedside 260 (70-110)
--- NOTE | 2020-05-04 06:06 | PC.NURSE ---
pt has slept in short intervals throughout night, pt has complained of intense pain 9/10 in right hip radiating down leg that pt classifies as a throbbing, shooting pain ice provided throughout shift with little relief, lungs remain clear other than inspiratory wheezes noted at bases, pt denies sob, heart rate regular, bs x 4 quads, iv to lfa patent and infusing well, dressing to right hip clean dry and intact. call light within reach no needs at this time
--- NOTE | 2020-05-04 06:47 | PC.NURSE ---
pt states she feels like sugar is dropping at this time, some sweating noted, pt request another glucose test blood sugar at this time with a result of 233, grape juice at bedside
[2020-05-04 06:53] LABS: POC Glucose,Bedside 233 (70-110)
--- NOTE | 2020-05-04 07:02 | PC.NURSE ---
report given to Tori Collins RN
--- NOTE | 2020-05-04 07:20 | PC.NURSE ---
Report received from Lilliana Chester RN.
[2020-05-04 07:35] LABS: Basophils % 0.5 % (0.1-2.0); Eosinophils # 0.4 K/mm3 (0.0-0.4); Eosinophils % 5.3 % (0.1-12.0); Hematocrit 39.4 % (37.0-47.0); Hemoglobin 11.8 g/dL (12.2-16.2); Lymphocytes # 1.4 K/mm3 (0.7-4.5); Lymphocytes % 19.3 % (10-50); Mean Corpuscular Hemoglobin 30.1 pg (27.0-31.2); Mean Corpuscular Volume 100.3 fl (81-99); Mean Platelet Volume 8.1 fl (7.4-10.4); Monocytes # 0.5 K/mm3 (0.1-1.0); Monocytes % 7.3 % (1.7-9.3); Neutrophils # 4.9 K/mm3 (1.8-7.8); Neutrophils % 67.5 % (37.0-80.0); Platelet Count 206 K/mm3 (142-424); Red Blood Count 3.93 M/mm3 (4.20-5.40); Red Cell Distribution Width 12.9 % (11.5-17.5); White Blood Count 7.3 K/mm3 (4.8-10.8)
[2020-05-04 07:50] LABS: Chloride 102 mmol/L (98-107); Potassium 4.3 mmoL/L (3.5-5.1); Sodium 133 mmol/L (136-145)
[2020-05-04 07:53] LABS: Anion Gap 6.3 mEq/L (5-15); Blood Urea Nitrogen 21 mg/dl (7-17); Calcium 8.3 mg/dl (8.4-10.2); Carbon Dioxide 29 mmol/L (22.0-30.0); Creatinine Clearance Estimated 38 mL/min (50-200); Estimated Glomerular Filt Rate 63 ml/min (>60); GFR (African American) 76 ML/MIN (>60); Glucose 220 mg/dl (74-100)
--- NOTE | 2020-05-04 08:19 | PC.NURSE ---
Sandy Aguila APRN at bedside to see pt.
--- NOTE | 2020-05-04 08:59 | HMH.ACPN2 ---
<Sandy Aguila - Last Filed: 05/04/20 08:59> Internal Medicine - PN: Subj *Date: 05/04/20 *Time: 07:55 Interval history: Pt is sitting up in bed eating breakfast. She denies any nausea or vomiting. She has not had BM but is passing flatus. She reports increased pain overnight despite prn medication and repositioning. Exam Vital signs and Labs for Last 24 Hours: Temp Pulse Resp BP Pulse Ox 98.5 F 87 16 187/81 H 92 L 05/04/20 03:00 05/04/20 06:51 05/04/20 03:00 05/04/20 07:35 05/04/20 08:09 Laboratory Results - last 24 hr 05/03/20 10:49: POC Glucose 298 H 05/03/20 16:31: POC Glucose 298 H 05/03/20 20:36: POC Glucose 342 H* 05/04/20 05:40: POC Glucose 260 H 05/04/20 06:41: POC Glucose 233 H 05/04/20 07:05: WBC 7.3, RBC 3.93 L, Hgb 11.8 L, Hct 39.4, MCV 100.3 H, MCH 30.1, MCHC 30.0 L, RDW 12.9, Plt Count 206, MPV 8.1, Neut % (Auto) 67.5, Lymph % (Auto) 19.3, [place] % (Auto) 7.3, Eos % (Auto) 5.3, Baso % (Auto) 0.5, Neut # (Auto) 4.9, Lymph # (Auto) 1.4, [place] # (Auto) 0.5, Eos # (Auto) 0.4, Baso # (Auto) 0.0 05/04/20 07:05: Sodium 133 L, Potassium 4.3, Chloride 102, Carbon Dioxide 29, Anion Gap 6.3, BUN 21 H, Creatinine 0.90, Estimated Creat Clear 38, Estimated GFR 63, Est GFR ( Amer) 76, Glucose 220 H, Calcium 8.3 L I & O for Last 24 hours: Intake & Output 05/01/20 05/02/20 05/03/20 05/04/20 11:59 11:59 11:59 11:59 Intake Total 879 / 879 1751 / 1751 960 / 960 Output Total 1025 / 1025 1500 / 1500 1000 / 1000 900 / 900 Balance -146 / -146 251 / 251 -40 / -40 -900 / -900 Weight 208 lb 5.389 oz 93 lb 8 oz 93 lb 7.616 oz - Constitutional no acute distress - *Routine HEENT Exam Head: Present: normocephalic ENT: Present: mucous membranes moist - *Routine Respiratory Exam Comments: generally diminished with scattered wheezes - *Routine Cardiovascular Exam Present: RRR - *Routine Abdominal Exam Present: soft, normoactive bowel sounds. Absent: tenderness, distended, guarding, firm, rigid - *Routine Extremities Exam Present: pulses intact. Absent: edema, calf tenderness - *Routine Neurological Exam Present: alert, oriented X3, normal speech Assessment and Plan (1) Hip fracture Status: Acute Qualifiers: Encounter type: initial encounter Fracture type: closed Laterality: right Qualified Code(s): S72.001A - Fracture of unspecified part of neck of right femur, initial encounter for closed fracture Category: Medical Code(s): S72.009A - Fracture of unspecified part of neck of unspecified femur, initial encounter for closed fracture (2) CAD (coronary artery disease) Status: Acute Category: Medical Code(s): I25.10 - Atherosclerotic heart disease of [place] coronary artery without angina pectoris (3) COPD (chronic obstructive pulmonary disease) Status: Acute Category: Medical Code(s): J44.9 - Chronic obstructive pulmonary disease, unspecified (4) Tobacco use disorder Status: Acute Category: Medical Code(s): F17.200 - Nicotine dependence, unspecified, uncomplicated (5) Pancreatic insufficiency Status: Acute Category: Medical Code(s): K86.89 - Other specified diseases of pancreas (6) Hyperglycemia due to type 2 diabetes mellitus Status: Acute Category: Medical Code(s): E11.65 - Type 2 diabetes mellitus with hyperglycemia (7) Diabetes mellitus, insulin dependent (IDDM), uncontrolled Status: Acute Category: Medical (8) Renal insufficiency Status: Acute Category: Medical Code(s): N28.9 - Disorder of kidney and ureter, unspecified (9) Lumbar back pain Status: Acute Category: Medical Code(s): M54.5 - Low back pain (10) CKD stage 2 due to type 2 diabetes mellitus Status: Acute Category: Medical Code(s): E11.22 - Type 2 diabetes mellitus with diabetic chronic kidney disease; N18.2 - Chronic kidney disease, stage 2 (mild) - Assessment and plan all Dx Assessment and Plan for all problems:: per Dr. Lackey <Mu
--- NOTE | 2020-05-04 10:25 | PC.NURSE ---
ICE PACK APPLIED TO R HIP AT THIS TIME.
--- NOTE | 2020-05-04 13:00 | PC.NURSE ---
PHYSICAL THERAPY PRESENT. PT UP WALKING IN ROOM WITH WALKER, BUT NOT WILLING TO WALK IN HALLWAY YET.
--- NOTE | 2020-05-04 14:00 | PC.NURSE ---
PT REQUESTING PRN MEDICATION FOR PAIN, RATING IT AT A 9/10. PERCOCET 10/325MG (1) TAB GIVEN.
--- NOTE | 2020-05-04 15:20 | PC.NURSE ---
DR. CRAIG HERE TO CHECK ON PT. NO NEW ORDERS RECEIVED.
--- NOTE | 2020-05-04 15:25 | P.PN_ITS ---
Subjective Date: 05/04/20 Time: 14:30 Principal diagnosis: Fracture neck of femur, right Interval history: Patient is status post cannulated screw fixation, right hip, post op day # 3. She is lying down in bed. She says she is doing well and pain is well controlled with as needed pain medication. She says she is mobilizing well with the help of physical therapy. No history of any fevers, chills or rigors. No history of any nausea, vomiting, chest pain or SOB. PN: Obj Ex Vital signs: Temp Pulse Resp BP Pulse Ox 98.1 F 78 19 162/72 H 92 L 05/04/20 11:58 05/04/20 11:58 05/04/20 11:58 05/04/20 11:58 05/04/20 08:09 Narrative: Laboratory Results - last 24 hr 05/03/20 16:31: POC Glucose 298 H 05/03/20 20:36: POC Glucose 342 H* 05/04/20 05:40: POC Glucose 260 H 05/04/20 06:41: POC Glucose 233 H 05/04/20 07:05: WBC 7.3, RBC 3.93 L, Hgb 11.8 L, Hct 39.4, MCV 100.3 H, MCH 30.1, MCHC 30.0 L, RDW 12.9, Plt Count 206, MPV 8.1, Neut % (Auto) 67.5, Lymph % (Auto) 19.3, [place] % (Auto) 7.3, Eos % (Auto) 5.3, Baso % (Auto) 0.5, Neut # (Auto) 4.9, Lymph # (Auto) 1.4, [place] # (Auto) 0.5, Eos # (Auto) 0.4, Baso # (Auto) 0.0 05/04/20 07:05: Sodium 133 L, Potassium 4.3, Chloride 102, Carbon Dioxide 29, Anion Gap 6.3, BUN 21 H, Creatinine 0.90, Estimated Creat Clear 38, Estimated GFR 63, Est GFR ( Amer) 76, Glucose 220 H, Calcium 8.3 L Exam General appearance: Alert, awake, no acute distress Cardiovascular: regular rate & rhythm Respiratory: no respiratory distress, speaking in full sentences ABD: soft and nontender. Bowel sounds heard over all 4 quadrants. Neuro: Alert and oriented x3 On examination of her right lower extremity, the limb lengths are equal. The alignment is neutral. The dressings over the right hip are clean, dry and int act. Attempted movements of the hip are painful. Distal neurovascular status is intact. No clinical signs of DVT - Urinary Catheter Management Gaona Cath placed during this visit: no Progress Note: A&P (1) Hip fracture Status: Acute (2) CAD (coronary artery disease) Status: Acute (3) COPD (chronic obstructive pulmonary disease) Status: Acute (4) Tobacco use disorder Status: Acute (5) Pancreatic insufficiency Status: Acute (6) Hyperglycemia due to type 2 diabetes mellitus Status: Acute (7) Diabetes mellitus, insulin dependent (IDDM), uncontrolled Status: Acute (8) Renal insufficiency Status: Acute (9) Lumbar back pain Status: Acute (10) CKD stage 2 due to type 2 diabetes mellitus Status: Acute Assessment and Plan for All Diagnoses:: I have reviewed the findings and progress with the patient. Continue mobilization with the help of physical therapist weightbearing on the right side as tolerated. Continue PT/OT, pain management with as needed narcotic analgesics. Recommend DVT prophylaxis for 5 weeks postop- the appropriate agents include Lovenox, Aspirin 325 mg, Xarelto (Rivaroxaban), Eliquis (apixaban) and Coumadin. Follow-up in my office in 2 weeks? time with check x-ray. Please feel free to call our office at [phone] for any orthopaedic questions. Continue medical management as per Dr. Lackey.
[2020-05-04 16:43] LABS: POC Glucose,Bedside 240 (70-110)
--- NOTE | 2020-05-04 16:55 | PC.NURSE ---
Pt took sponge bath while in bed with assist from her cousin. States that she might take a real bath or shower later tonight or early in the a.m.
--- NOTE | 2020-05-04 17:16 | PC.NURSE ---
Addendum entered by Mally Collins RN 05/04/20 17:18: LATE ENTRY: INTERVENTION TOOK PLACE AT 11:45 INSTEAD OF 17:18 Original Note: PT GIVEN EXTENDED RELEASE OXYCODONE 20MG PO PER MD'S ORDERS. SIDE EFFECTS EXPLAINED. V/U.
--- NOTE | 2020-05-04 19:10 | PC.NURSE ---
Report received from Flavia Collins RN.
--- NOTE | 2020-05-04 19:43 | PC.NURSE ---
PT ASSESSED AT THIS TIME. PT POSITIONED ON L SIDE AT THIS TIME WITH PILLOWS. LUNG SOUNDS AT BILATERAL BASES NOTED INSPIRATORY WHEEZE. PT HAS A NONPRODUCTIVE INTERMITTENT COUGH. PT IS A SMOKER AND NICOTINE PATCH IS IN PLACE. R HIP DRESSING IS C/D/I. SCUD IN PLACE ON L LEG. BOWEL SOUNDS NORMAL X4 QUADS. PT DENIES BM BUT STATES SHE HAS BEEN PASSING GAS AND BLECHING. PT RATES PAIN 8/10 ON VERBAL SCALE AT THIS TIME R/T HIP PAIN AND MEDICATED PER EMAR AT THIS TIME. WILL CONTINUE TO OBSERVE.
[2020-05-04 20:46] LABS: POC Glucose,Bedside 187 (70-110)
--- NOTE | 2020-05-04 21:04 | PC.NURSE ---
PT ASSISTED TO BSC AND BACK TO BED AT THIS TIME. PT VOIDED 950 ML OF CLEAR URINE AND MODERATED FORMED HARD BM.
--- NOTE | 2020-05-04 23:00 | PC.NURSE ---
PT GIVEN GRAPE JUICE AND BRINDA CRACKERS AND PEANUT BUTTER FOR BEDTIME SNACK AT THIS TIME. DENIES ANY FURTHER NEEDS.
[2020-05-05] VITALS: BP 162/58; PULSE 62; RESP 18; TEMP 36.7; O2SAT 96
--- NOTE | 2020-05-05 01:05 | PC.NURSE ---
PT MEDICATED PER EMAR AT THIS TIME FOR PAIN OF R HIP 8/10 ON VERBAL SCALE. WILL CONTINUE TO OBSERVE.
--- NOTE | 2020-05-05 03:43 | PC.NURSE ---
PT HELPED ON TO BSC AT THIS TIME. UPON GETTING BACK IN BED PT STATED THAT SHE WAS GOING TO VOMIT. PT SITTING UP ON SIDE OF BED DRY HEAVING. MEDICATED PER EMAR AT THIS TIME FOR N/V. PT STATES PAIN 8/10 ON VERBAL SCALE. NO PAIN MEDICATION CAN BE GIVEN AT THIS TIME.
[2020-05-05 04:00] VITALS: BP 162/60; PULSE 74; RESP 18; TEMP 36.8; O2SAT 94
[2020-05-05 05:01] VITALS: BMI 17.0
--- NOTE | 2020-05-05 06:59 | PC.NURSE ---
Pt refused breathing tx at this time, will come back next round.
--- NOTE | 2020-05-05 07:07 | PC.NURSE ---
Report given to Rg Brown RN.
[2020-05-05 08:25] VITALS: BP 182/77; PULSE 70; RESP 18; TEMP 36.8; O2SAT 90
--- NOTE | 2020-05-05 08:25 | PC.NURSE ---
DR. PUGH AT BEDSIDE FOR AM ASSESSMENT, MADE AWARE OF ELEVATED B/P. NO NEW ORDERS AT THIS TIME, PT GIVEN AM MEDS AT THIS TIME
--- NOTE | 2020-05-05 08:42 | HMH.ACPN2 ---
Internal Medicine - PN: Subj *Date: 05/05/20 *Time: 08:42 Interval history: Patient with no new complaints today, states her right hip pain has improved with Oxycodone ER, she still has a little nausea Exam Vital signs and Labs for Last 24 Hours: Temp Pulse Resp BP Pulse Ox 98.3 F 74 18 162/60 H 94 L 05/05/20 04:00 05/05/20 04:00 05/05/20 04:00 05/05/20 04:00 05/05/20 04:00 Laboratory Results - last 24 hr 05/04/20 16:24: POC Glucose 240 H 05/04/20 20:38: POC Glucose 187 H Vital Signs - 24 hr 05/04/20 10:52 05/04/20 11:58 05/04/20 16:57 Temperature 98.1 F 98.1 F Pulse Rate 75 Pulse Rate [Left Brachial] 78 75 Respiratory Rate 19 20 Blood Pressure [Left Arm] 162/72 H 175/77 H Blood Pressure [Right Arm] 02 Sat by Pulse Oximetry 05/04/20 20:00 05/05/20 00:00 05/05/20 04:00 Temperature 98.2 F 98.1 F 98.3 F Pulse Rate Pulse Rate [Left Brachial] 56 L 62 74 Respiratory Rate 19 18 18 Blood Pressure [Left Arm] 162/60 H Blood Pressure [Right Arm] 132/58 L 162/58 H 02 Sat by Pulse Oximetry 95 96 94 L I & O for Last 24 hours: Intake & Output 05/02/20 05/03/20 05/04/20 05/05/20 23:59 23:59 23:59 23:59 Intake Total 1381 / 1381 480 / 480 240 / 240 120 / 120 Output Total 1950 / 1950 500 / 500 2350 / 2350 900 / 900 Balance -569 / -569 -20 / -20 -2110 / -2110 -780 / -780 Weight 93 lb 8 oz 93 lb 7.616 oz 96 lb 1.945 oz - Constitutional no acute distress - *Routine HEENT Exam Head: Present: normocephalic Eye: Present: EOMI ENT: Present: mucous membranes moist - *Routine Neck Exam Present: supple. Absent: lymphadenopathy - *Routine Respiratory Exam Present: CTA bilaterally - *Routine Cardiovascular Exam Present: RRR - *Routine Abdominal Exam Present: soft, normoactive bowel sounds. Absent: tenderness - *Routine Extremities Exam Absent: cyanosis, clubbing, edema Comments: dressing over right hip surgical wound is C/D/I - *Routine Skin Exam Present: warm. Absent: rash - *Routine Neurological Exam Present: alert, oriented X3 Assessment and Plan (1) Hip fracture Status: Acute Qualifiers: Encounter type: initial encounter Fracture type: closed Laterality: right Qualified Code(s): S72.001A - Fracture of unspecified part of neck of right femur, initial encounter for closed fracture Category: Medical Code(s): S72.009A - Fracture of unspecified part of neck of unspecified femur, initial encounter for closed fracture (2) CAD (coronary artery disease) Status: Acute Category: Medical Code(s): I25.10 - Atherosclerotic heart disease of [place] coronary artery without angina pectoris (3) COPD (chronic obstructive pulmonary disease) Status: Acute Category: Medical Code(s): J44.9 - Chronic obstructive pulmonary disease, unspecified (4) Tobacco use disorder Status: Acute Category: Medical Code(s): F17.200 - Nicotine dependence, unspecified, uncomplicated (5) Pancreatic insufficiency Status: Acute Category: Medical Code(s): K86.89 - Other specified diseases of pancreas (6) Hyperglycemia due to type 2 diabetes mellitus Status: Acute Category: Medical Code(s): E11.65 - Type 2 diabetes mellitus with hyperglycemia (7) Diabetes mellitus, insulin dependent (IDDM), uncontrolled Status: Acute Category: Medical (8) Renal insufficiency Status: Acute Category: Medical Code(s): N28.9 - Disorder of kidney and ureter, unspecified (9) Lumbar back pain Status: Acute Category: Medical Code(s): M54.5 - Low back pain (10) CKD stage 2 due to type 2 diabetes mellitus Status: Acute Category: Medical Code(s): E11.22 - Type 2 diabetes mellitus with diabetic chronic kidney disease; N18.2 - Chronic kidney disease, stage 2 (mild) - Assessment and plan all Dx Assessment and Plan for all problems:: OK for discharge today to SNF for rehab after right hip fracture repair. Pt needs f/u with Ortho in 2 weeks.
--- NOTE | 2020-05-05 09:12 | HMH.DCSUM ---
General - General Admission date:: 04/29/20 Discharge date: 05/05/20 HPI HPI: Ms. Jo was a 65 year old female from [place], who presented to [facility] ER complaining of a 1 week history of right hip pain. Patient stated she had fallen a week ago at home while sorting household goods for a yard sale. She was able to stand and walk after falling. She stated the pain had gotten progressively worse over the prior week to the point that she was unable to sleep due to the pain. Evaluation in the ER showed a right hip fracture on xray and CT scan so arrangements were made for admission to [facility]. Patient stated she had numerous health problems including DM type2 (last A1c was 14 one month ago), CAD (CABG in 2011), COPD (100 pack year smoking history), chronic narcotic use, and pancreatic insufficiency. Hospital Course Hospital Course: She was seen by ortho who planned for cannulated screw fixation procedure after patient received appropriate surgical clearance due to her multiple comorbidities. She was started on lisinopril for elevated blood pressure readings. Her potassium was elevated and her blood sugars remained erratic. She was considered an increased but acceptable risk for planned orthopedic surgery from cardiology standpoint. She was considered intermediate risk for pulmonary complications and recommendation was made for DuoNebs every 6 hours scheduled along with budesonide every 12 scheduled as the patient understood the risks and wished to proceed with surgery. On 05/01/2020 she underwent cannulated screw fixation of the right hip. The day following surgery, her blood pressures were elevated which she believed was due to increased postoperative pain. Clonidine and transdermal nitroglycerin were added to her home medications for additional control. Her metoprolol was changed to carvedilol for additional blood pressure control. She was felt to be clinically stable from a cardiology standpoint. Her respiratory status was at baseline. She was stable to start weight-bearing with PT. She continued with some pain which was felt to be contributing to elevated blood pressures. Her blood sugars were improving. She planned to go to SNF for rehab due to living alone. By 05/04/2020 she was felt stable for discharge from ortho standpoint with followup in the office in 2 weeks. Oxycodone ER was added for additional pain control and frequency of prn Percocet was increased. By the morning of 05/05/2020, her pain had improved and patient was stable to discharge to SNF. Objective Vital signs: Temp Pulse Resp BP Pulse Ox 98.2 F 70 18 182/77 H 90 L 05/05/20 08:25 05/05/20 08:25 05/05/20 08:25 05/05/20 08:25 05/05/20 08:25 Results Labs on day of discharge: Labs from last 24 hours 05/04/20 05/04/20 20:38 16:24 POC Glucose 187 H 240 H DS: Diagnosis - Discharge Diagnosis (1) Hip fracture Status: Acute (2) CAD (coronary artery disease) Status: Acute (3) COPD (chronic obstructive pulmonary disease) Status: Acute (4) Tobacco use disorder Status: Acute (5) Pancreatic insufficiency Status: Acute (6) Hyperglycemia due to type 2 diabetes mellitus Status: Acute (7) Diabetes mellitus, insulin dependent (IDDM), uncontrolled Status: Acute (8) Renal insufficiency Status: Acute (9) Lumbar back pain Status: Acute (10) CKD stage 2 due to type 2 diabetes mellitus Status: Acute Discharge Plan - Patient Discharge Instructions ACTIVITY: Continue current activity DIET: continue same diet Additional Instructions: FOLLOW-UP WITH DR. CRAIG ON 05/16 AT 3:15 ARRIVE 30-45 MINUTES EARLY FOR AN X-RAY Patient Instructions: How to Care for a Surgical Wound, DI for Hip Fracture, DI for Surgical Site Infection - Follow up Plan Follow up with: Chava Craig MD [Staff Physician] - 2 weeks ( @ 10:30 a.m.) Disposition: Xfer [facility] Home Medications: Home Medications
--- NOTE | 2020-05-05 09:45 | PC.NURSE ---
REPORT CALLED TO [facility] AT THIS TIME, REPORT GIVEN TO GIOVANNI CHIEF SUSTAINABILITY OFFICER DON
[2020-05-06 01:48] LABS: POC Glucose,Bedside 85 (70-110)
[2020-05-15 08:24] LABS: POC Glucose,Bedside 419 (70-110)
[2020-05-15 08:25] LABS: POC Glucose,Bedside 139 (70-110)
== END 2020-05-05 11:00 | DRG 481 ==
LOC: ER 07:14 → 2ND 08:37 → OB 05-01 15:11
PROVIDERS: Orthopaedic Surgery; Physician Assistant; Admitting Provider Family Medicine; Emergency Provider Emergency Medicine; PCP Family Medicine; Visit Provider Family Medicine
PROC: 0QS634Z Reposition Right Upper Femur with Internal Fixation Device, Percutaneous Approach (ICD-10-PCS; principal; 2020-05-01 13:45)
DX: S72.011A Unspecified intracapsular fracture of right femur, initial encounter for closed fracture (principal); J44.1 Chronic obstructive pulmonary disease with (acute) exacerbation; W01.0XXA Fall on same level from slipping, tripping and stumbling without subsequent striking against object, initial encounter; I25.10 Atherosclerotic heart disease of native coronary artery without angina pectoris; Z95.1 Presence of aortocoronary bypass graft; I12.9 Hypertensive chronic kidney disease with stage 1 through stage 4 chronic kidney disease, or unspecified chronic kidney disease; E11.22 Type 2 diabetes mellitus with diabetic chronic kidney disease; E11.65 Type 2 diabetes mellitus with hyperglycemia; N18.2 Chronic kidney disease, stage 2 (mild); Z79.4 Long term (current) use of insulin
CPT/HCPCS: 27235; 36415; 71045; 73502; 73552; 73700; 76000; 80048; 80053; 81001; 82009; 82803; 82947; 82962; 83036; 83735; 84132; 85025; 85610; 86328; 86850; 88304; 88311; 93005; 93306; 94640; 96365; 96367; 96374; 96375; 96376; 97110; 97161; 97165; 97530; 97535; 99284; C1713; J2405

== ENCOUNTER → 2020-05-23 09:11 | Outpatient (CLI) | payer MEDICARE, OTHER, SELFPAY ==
--- NOTE | 2020-05-23 09:15 | XR_ITS ---
PROCEDURE: XR HIP RT 2-3V W/PELVIS CLINICAL INDICATION: sp RT hip cannulated screw fixation Follow-up surgery/fracture COMPARISON: CR XR HIP RT 2-3V W/PELVIS from 04/29/2020 XA XR HIP RT 2-3V W/PELVIS from 05/01/2020 FINDINGS: There are 3 cannulated screws present within the right hip stabilizing the femoral neck fracture. There is some mild impaction of the fracture fragments with no significant displacement. The screws are not flush with the bony cortex however, there are no other postoperative images to compare too. Postsurgical changes of the lumbar spine. IMPRESSION: Good alignment with mild impaction of fracture fragments status post ORIF right femoral neck fracture. See above for detail Dictated by: Sumanth Sanchez MD 05/23/2020 16:43 Sumanth Sanchez MD in OV 05/23/2020 16:43
== END ==
PROVIDERS: PCP Family Medicine; Visit Provider Orthopaedic Surgery
DX: Z09 Encounter for follow-up examination after completed treatment for conditions other than malignant neoplasm (principal)
CPT/HCPCS: 73502

== ENCOUNTER → 2020-05-25 14:37 | Outpatient (CLI) | payer MEDICARE, OTHER, SELFPAY ==
[2020-05-25 14:40] LABS: Microscopic, Urine URINE MICROSCOPIC (MICROSCOPIC)
[2020-05-25 14:45] LABS: Appearance,Urine TURBID (Clear); Blood, Urine 3+ (Negative); Color,Urine RED (Yellow); Glucose,Urine (UA) Negative (Negative); Ketones,Urine TRACE (Negative); Leukocyte Esterase,Urine 2+ (Negative); Nitrate,Urine POSITIVE (Negative); PH,Urine 5.5 (5.0-8.5); Protein,Urine 3+ (Negative); Specific Gravity, Urine >= 1.030 (1.005-1.030)
[2020-05-25 14:55] LABS: Bilirubin,Urine Negative (Negative)
[2020-05-25 14:56] LABS: RBC,Urine TNTC #/hpf (0-3)
== END ==
PROVIDERS: Visit Provider Emergency Medicine
DX: R31.9 Hematuria, unspecified (principal)
CPT/HCPCS: 81001; 87086; 87088; 87186

== ENCOUNTER → 2020-06-13 13:01 | Outpatient (CLI) | payer MEDICARE, OTHER, SELFPAY ==
--- NOTE | 2020-06-13 13:02 | XR_ITS ---
PROCEDURE: XR DEXA AXIAL SKELETON CLINICAL HISTORY: evaluate for osteoporosis COMPARISON: No exams were available for comparison FINDINGS: The left hip BMD is 0.519 with a T-score of -3.5. Radius 33 percent BMD is is 0.600 with a T-score -1.6 IMPRESSION: This patient is considered osteoporotic according to the World Health Organization criteria. Fracture risk is high. Treatment is advised. Based on these results a follow-up exam is recommended in 1 year. Dictated by: Sumanth Sanchez MD 06/15/2020 05:37 Sumanth Sanchez MD in [facility] 06/15/2020 05:37
--- NOTE | 2020-06-13 13:25 | XR_ITS ---
PROCEDURE: XR HIP RT 2-3V W/PELVIS CLINICAL INDICATION: sp cannulated screw fixation, right hip Follow-up surgery COMPARISON: CR XR HIP RT 2-3V W/PELVIS from 05/23/2020 FINDINGS: Status post cannulated screw placement stabilizing right subcapital femoral neck fracture. There is mild superior displacement of the distal fracture fragment as before. Fracture line is still visible. Postsurgical changes lumbar spine. IMPRESSION: No change good alignment status post ORIF right femoral neck fracture Dictated by: Sumanth Sanchez MD 06/13/2020 14:51 Sumanth Sanchez MD in [facility] 06/13/2020 14:51
== END ==
PROVIDERS: PCP Emergency Medicine; Visit Provider Orthopaedic Surgery
DX: M81.0 Age-related osteoporosis without current pathological fracture (principal); Z09 Encounter for follow-up examination after completed treatment for conditions other than malignant neoplasm; M25.551 Pain in right hip
CPT/HCPCS: 73502; 77080

== ENCOUNTER → 2020-08-24 17:27 | Outpatient (CLI) | payer OTHER, MEDICARE, SELFPAY ==
[2020-08-24 17:40] LABS: Basophils # 0.1 K/mm3 (0-0.2); Basophils % 0.8 % (0.1-2.0); Eosinophils # 0.3 K/mm3 (0.0-0.4); Eosinophils % 2.9 % (0.1-12.0); Hematocrit 49.4 % (37.0-47.0); Hemoglobin 15.1 g/dL (12.2-16.2); Lymphocytes # 1.6 K/mm3 (0.7-4.5); Lymphocytes % 17.5 % (10-50); Mean Corpuscular HGB Conc 30.5 g/dL (31.8-35.4); Mean Corpuscular Hemoglobin 30.3 pg (27.0-31.2); Mean Corpuscular Volume 99.4 fl (81-99); Mean Platelet Volume 9.6 fl (7.4-10.4); Monocytes # 0.5 K/mm3 (0.1-1.0); Monocytes % 5.8 % (1.7-9.3); Neutrophils # 6.8 K/mm3 (1.8-7.8); Neutrophils % 72.9 % (37.0-80.0); Platelet Count 224 K/mm3 (142-424); Red Blood Count 4.97 M/mm3 (4.20-5.40); Red Cell Distribution Width 13.6 % (11.5-17.5); White Blood Count 9.3 K/mm3 (4.8-10.8)
--- NOTE | 2020-08-24 17:55 | XR_ITS ---
PROCEDURE: XR ACUTE ABDOMEN SERIES CLINICAL INDICATION: constipation COMPARISON: No exams were available for comparison FINDINGS: Frontal view of the chest shows no acute finding. There has been a prior CABG. Upright and supine views of the abdomen demonstrates a nonspecific bowel gas pattern. No intestinal obstruction or free air. There is a mild amount of retained colonic feces. Surgical clips are present in the right upper quadrant. There has been prior lumbar fusion at L4-L5 and S1 with inter pedicular screws. Three screws are present in the right femoral head and neck. There is mild vascular calcification. IMPRESSION: As above, no acute finding Dictated by: Sumanth Sanchez MD 08/25/2020 06:56 Sumanth Sanchez MD in [facility] 08/25/2020 06:56
[2020-08-24 17:59] LABS: Alanine Aminotransferase 7 U/L (12-78); Albumin Level 3.6 g/dl (3.5-5.0); Albumin/Globulin Ratio 1.3 (1.1-1.8); Alkaline Phosphatase 172 U/L (38-126); Anion Gap 4.7 mEq/L (5-15); Aspartate Amino Transferase 20 U/L (14-36); Bilirubin,Total 0.5 mg/dl (0.2-1.3); Blood Urea Nitrogen 17 mg/dl (7-17); Calcium 9.3 mg/dl (8.4-10.2); Carbon Dioxide 34 mmol/L (22.0-30.0); Chloride 99 mmol/L (98-107); Chol/HDL Ratio 3.7 (1-3.5); Cholesterol 234 mg/dl (140-200); Estimated Glomerular Filt Rate 63 ml/min (>60); GFR (African American) 76 ML/MIN (>60); Globulin 2.8 g/dL (1.3-3.2); Glucose 214 mg/dl (74-100); HDL Cholesterol 63 mg/dl (40-60); Potassium 4.7 mmoL/L (3.5-5.1); Sodium 133 mmol/L (136-145); Total Protein,Serum 6.4 g/dl (6.3-8.2); Triglycerides 184 mg/dl (30-150); VLDL Cholesterol 37 mg/dL (0-40)
[2020-08-24 18:10] LABS: Direct LDL Cholesterol 131.44 mg/dL (100-129)
[2020-08-24 18:15] LABS: T4 (Thyroxine) 7.9 ug/dl (5.53-11.0)
[2020-08-24 18:16] LABS: 25-OH Vitamin D, Total 14.7 ng/mL (30-100)
[2020-08-24 18:22] LABS: Hemoglobin A1C 12.3 % (4.0-6.0)
[2020-08-24 18:28] LABS: Thyroid Stimulating Hormone 1.01 uIU/mL (0.465-4.68)
[2020-08-24 21:07] LABS: Creatinine,Urine Random 81 mg/dL (Not Estab.)
[2020-08-24 21:28] LABS: Microalbumin > 570.000 mg/L (0-16.7); Microalbumin/Creatinine Ratio 703.7
== END ==
LOC: LAB.DROPOF 17:27 → RAD 17:43
PROVIDERS: PCP Nurse Practitioner Family; Visit Provider Nurse Practitioner Family
DX: E11.22 Type 2 diabetes mellitus with diabetic chronic kidney disease (principal); I12.9 Hypertensive chronic kidney disease with stage 1 through stage 4 chronic kidney disease, or unspecified chronic kidney disease; N18.2 Chronic kidney disease, stage 2 (mild); E11.65 Type 2 diabetes mellitus with hyperglycemia; E55.9 Vitamin D deficiency, unspecified; G89.29 Other chronic pain; M54.5 Low back pain; K59.00 Constipation, unspecified; Z79.4 Long term (current) use of insulin
CPT/HCPCS: 74021; 80053; 80061; 82043; 82306; 82570; 83036; 84436; 84443; 85025

== ENCOUNTER 2020-09-08 17:03 | Emergency (ER) | payer MEDICARE, OTHER, SELFPAY ==
[2020-09-08] VITALS (9 sets, daily range): BP systolic 163–232; BP diastolic 69–94; PULSE 75–130; RESP 16–18; TEMP 36.8–37; O2SAT 94–98; BMI 14.2
--- NOTE | 2020-09-08 17:29 | PC.NURSE ---
checked on pt got her another warm blanket, pt stated that she was in alot of pain and asked if she could have something for pain told her that i would advise the nurse.
--- NOTE | 2020-09-08 17:52 | HMH.EDGENADL ---
ED Disposition Clinical Impression: Epigastric pain, Right hip pain, Right hip crepitus, Hyperglycemia Disposition: Home, Self-Care Condition on Discharge: Good Additional Instructions: Follow-up with Dr. Soria for your right hip problems. Call Friday to make appointment. Follow-up with Dr. Fairchild for your epigastric pain. Call Friday to make appointment. Follow-up with your primary care doctor for elevated blood sugars - Dr. Lora and Dr. Dunn are in the office on Friday and you can be seen on that day. Return to the emergency department for worsening condition. Referrals: Jordon Zeng APRN [Primary Care Provider] - - Critical Care Critical Care Time: No Attestation: On 09/08/20, the high probability of a clinically significant, sudden or life threatening deterioration of the following system(s) required my full and direct attention, intervention and personal management. The time I documented below is in addition to time spent performing reported procedures but includes the following listed in this critical care notation. Medical Decision Making - Kodi Inquiry Pt receiving controlled substance: Yes Kodi was queried for this patient: Yes Risks and benefits of using a controlled substance: were not discussed with pt by me Vital Signs: 09/08/20 17:04 09/08/20 17:24 09/08/20 17:53 Temperature 98.6 F Temperature Source Oral Pulse Rate [Radial] 86 130 H 127 H Respiratory Rate 16 18 18 Blood Pressure [Right Radial Artery] 232/93 H 202/94 H 195/93 H Blood Pressure Mean [Right Radial Artery] 139 130 127 Blood Pressure Source [Right Radial Artery] Automatic Cuff Blood Pressure Position [Right Radial Artery] Sitting Supine Supine 02 Sat by Pulse Oximetry 98 96 95 Oxygen Delivery Method Room Air Room Air Room Air 09/08/20 18:26 09/08/20 18:53 09/08/20 19:05 Temperature Temperature Source Pulse Rate [Radial] 86 75 77 Respiratory Rate 18 18 18 Blood Pressure [Right Radial Artery] 163/69 H 184/78 H 199/85 H Blood Pressure Mean [Right Radial Artery] 100 113 123 Blood Pressure Source [Right Radial Artery] Automatic Cuff Automatic Cuff Blood Pressure Position [Right Radial Artery] Sitting Supine Sitting 02 Sat by Pulse Oximetry 97 94 L 94 L Oxygen Delivery Method Room Air Room Air Room Air 09/08/20 19:30 Temperature Temperature Source Pulse Rate [Radial] 86 Respiratory Rate 18 Blood Pressure [Right Radial Artery] 189/88 H Blood Pressure Mean [Right Radial Artery] 121 Blood Pressure Source [Right Radial Artery] Automatic Cuff Blood Pressure Position [Right Radial Artery] Supine 02 Sat by Pulse Oximetry 96 Oxygen Delivery Method Room Air - Lab Data Lab Results 09/08/20 18:20: WBC 6.0, RBC 4.90, Hgb 15.0, Hct 47.0, MCV 96.0, MCH 30.5, MCHC 31.8, RDW 13.5, Plt Count 108 L, MPV 10.3, Neut % (Auto) 73.7, Lymph % (Auto) 17.5, [place] % (Auto) 4.8, Eos % (Auto) 2.0, Baso % (Auto) 2.1 H, Neut # (Auto) 4.4, Lymph # (Auto) 1.1, [place] # (Auto) 0.3, Eos # (Auto) 0.1, Baso # (Auto) 0.1 09/08/20 18:20: Sodium 135 L, Potassium 4.4, Chloride 94 L, Carbon Dioxide 32 H, Anion Gap 13.4, BUN 13, Creatinine 0.90, Estimated Creat Clear 33, Estimated GFR 63, Est GFR ( Amer) 76, Glucose 509 H*, Calcium 10.0, Total Bilirubin 0.5, AST 24, ALT 13, Alkaline Phosphatase 196 H, Troponin I < 0.01, Total Protein 8.4 H D, Albumin 4.7, Globulin 3.7 H, Albumin/Globulin Ratio 1.3, Amylase 98, Lipase 26 09/08/20 18:20: Acetone Level None detected 09/08/20 19:25: Urine Color Yellow, Urine Appearance Sl cloudy, Urine pH 6.0, Ur Specific [place] 1.025, Urine Protein 2+, Urine Glucose (UA) 3+, Urine Ketones Negative, Urine Blood Trace-l, Urine Nitrate Negative, Urine Bilirubin Negative, Urine Urobilinogen 0.2, Ur Leukocyte Esterase Negative, Urine RBC 5-10 09/08/20 19:48: POC Glucose 313 H* Result diagrams: 09/08/20 18:20 09/08/20 18:20 Orders (Tests/Meds): ED MEDICATIONS Discontinued Medications Generic Name D
--- NOTE | 2020-09-08 18:01 | CT_ITS ---
PROCEDURE: CT ABDOMEN PELVIS WO CON CLINICAL INDICATION: epigastric pain, contrast allergy Abdominal pain with nausea vomiting COMPARISON: No exams were available for comparison TECHNIQUE: Axial images obtained with sagittal and coronal reformats. All CT scans at the facility use one or more dose reduction, viz: automated exposure control, ma/kV adjustment per patient size (including targeted exams where dose is matched to indication, i.e. head), or iterative reconstruction technique. FINDINGS: LOWER THORAX: 9 x 5 mm nodule right lower lobe posterior laterally. Calcified granuloma in the lingula. ABDOMEN & PELVIS: Prior cholecystectomy with pneumobilia and biliary ectasia. No focal liver lesion. Unremarkable appearing spleen. pancreatic atrophy. Unremarkable adrenal glands. No renal or ureteral calculi. No hydronephrosis. Stents are present within the renal arteries SMA and celiac artery. The stomach is somewhat distended. Paragraphs extensive artifact is present in the abdomen from the prior lumbar surgery. No evidence of small-bowel obstruction. There is mild thickening of the jejunum. Hyperdense material is present within the colon on right. No evidence to suggest appendicitis. Sigmoid anastomosis without obstruction. Multiple unopacified bowel loops in the abdomen or pelvis which could obscure or mimic pathology. If symptoms persist, consider repeat exam with IV and oral contrast. There is distention of the urinary bladder. There has been a prior hysterectomy. Postsurgical changes of the lumbar spine with inter pedicular screws at L4-5 and S1. Cannulated screws are present in the right femoral neck there is mild generalized subcutaneous edema. IMPRESSION: 1. Possible gastroenteritis. Macro negative Multiple unopacified bowel loops in the abdomen or pelvis which could obscure or mimic pathology. If symptoms persist, consider repeat exam with IV and oral contrast. 2. 9 x 5 mm noncalcified right lower lobe nodule. Consider [address] follow-up or PET CT 3. Prior cholecystectomy with pneumobilia and mild biliary ectasia. 4. Distended urinary bladder Dictated by: Sumanth Sanchez MD 09/09/2020 09:38 Sumanth Sanchez MD in [facility] 09/09/2020 09:38
--- NOTE | 2020-09-08 18:03 | XR_ITS ---
PROCEDURE: XR HIP RT 2-3V W/PELVIS CLINICAL INDICATION: pain, popping when ambulating COMPARISON: CR XR HIP RT 2-3V W/PELVIS from 05/23/2020 FINDINGS: There has been prior right hip [address] There is minimal offset at the fracture site in the femoral neck. This is significantly changed. There is some callus formation noted at the fracture site. No acute fracture or dislocation evident. The pins are not flush with the cortex of the femur however, this is not significantly changed. No acute fracture or dislocation is evident. Postsurgical changes are present at the lumbar spine. IMPRESSION: Postsurgical changes, no acute finding Dictated by: Sumanth Sanchez MD 09/09/2020 05:33 Sumanth Sanchez MD in [facility] 09/09/2020 05:33
--- NOTE | 2020-09-08 18:27 | PC.NURSE ---
PT DIFFICULT IV ACCESS.
[2020-09-08 18:31] LABS: Basophils # 0.1 K/mm3 (0-0.2); Basophils % 2.1 % (0.1-2.0); Eosinophils # 0.1 K/mm3 (0.0-0.4); Lymphocytes # 1.1 K/mm3 (0.7-4.5); Lymphocytes % 17.5 % (10-50); Mean Corpuscular HGB Conc 31.8 g/dL (31.8-35.4); Mean Corpuscular Hemoglobin 30.5 pg (27.0-31.2); Mean Platelet Volume 10.3 fl (7.4-10.4); Monocytes # 0.3 K/mm3 (0.1-1.0); Monocytes % 4.8 % (1.7-9.3); Neutrophils # 4.4 K/mm3 (1.8-7.8); Neutrophils % 73.7 % (37.0-80.0); Platelet Count 108 K/mm3 (142-424); Red Cell Distribution Width 13.5 % (11.5-17.5)
[2020-09-08 18:38] LABS: Alanine Aminotransferase 13 U/L (12-78); Albumin Level 4.7 g/dl (3.5-5.0); Albumin/Globulin Ratio 1.3 (1.1-1.8); Alkaline Phosphatase 196 U/L (38-126); Amylase 98 U/L (30-110); Anion Gap 13.4 mEq/L (5-15); Aspartate Amino Transferase 24 U/L (14-36); Bilirubin,Total 0.5 mg/dl (0.2-1.3); Blood Urea Nitrogen 13 mg/dl (7-17); Carbon Dioxide 32 mmol/L (22.0-30.0); Chloride 94 mmol/L (98-107); Creatinine Clearance Estimated 33 mL/min (50-200); Estimated Glomerular Filt Rate 63 ml/min (>60); GFR (African American) 76 ML/MIN (>60); Globulin 3.7 g/dL (1.3-3.2); Lipase 26 U/L (23-300); Potassium 4.4 mmoL/L (3.5-5.1); Sodium 135 mmol/L (136-145); Total Protein,Serum 8.4 g/dl (6.3-8.2)
[2020-09-08 18:40] LABS: Glucose 509 mg/dl (74-100)
--- NOTE | 2020-09-08 18:40 | PC.NURSE ---
Md aware of glucose reading of 509
--- NOTE | 2020-09-08 18:43 | INFXCTL.NOTE ---
pt gone to rad
[2020-09-08 18:55] LABS: Troponin I < 0.01 ng/ml (0.00-0.034)
--- NOTE | 2020-09-08 18:57 | ECG_ITS ---
APPROVED REPORT Exam: Resting ECG HR:79 bpm ECG Measurements Heart Rate 79 AXES SD 130 P 86 QRSd 72 QRS 82 QT 358 T 83 QTc 410 Conclusion Normal sinus rhythm Normal ECG Electronically signed by : Silvestre Dang, 09/09/2020 16:30:03
[2020-09-08 19:27] LABS: Appearance,Urine SL CLOUDY (Clear); Bilirubin,Urine Negative (Negative); Blood, Urine TRACE-L (Negative); Color,Urine YELLOW (Yellow); Glucose,Urine (UA) 3+ (Negative); Ketones,Urine Negative (Negative); Leukocyte Esterase,Urine Negative (Negative); Microscopic, Urine URINE MICROSCOPIC (MICROSCOPIC); Nitrate,Urine Negative (Negative); Protein,Urine 2+ (Negative); Specific Gravity, Urine 1.025 (1.005-1.030); Urobilinogen,Urine 0.2 EU/dl (0.2)
[2020-09-08 19:37] LABS: Acetone, Serum (Rapid) None Detected (None Detect)
--- NOTE | 2020-09-08 19:48 | PC.NURSE ---
FS check was 313, notified
[2020-09-08 19:55] LABS: POC Glucose,Bedside 313 (70-110)
== END 2020-09-08 20:07 | disposition home or self-care (01) ==
PROVIDERS: Emergency Provider Emergency Medicine; PCP Nurse Practitioner Family
DX: M24.851 Other specific joint derangements of right hip, not elsewhere classified (principal); R10.84 Generalized abdominal pain; E11.65 Type 2 diabetes mellitus with hyperglycemia; I10 Essential (primary) hypertension; E78.5 Hyperlipidemia, unspecified; J44.9 Chronic obstructive pulmonary disease, unspecified; I25.2 Old myocardial infarction; F17.210 Nicotine dependence, cigarettes, uncomplicated; Z79.899 Other long term (current) drug therapy
CPT/HCPCS: 73502; 74176; 80053; 81001; 82009; 82150; 82962; 83690; 84484; 85025; 93005; 96374; 96375; 99283; J2405

== ENCOUNTER 2020-09-15 23:26 | Emergency (ER) | payer MEDICARE, OTHER, SELFPAY ==
[2020-09-15 23:39] VITALS: BP 208/96; PULSE 88; RESP 16; TEMP 37.1; O2SAT 95; BMI 14.2
--- NOTE | 2020-09-16 | HMH.EDGENADL ---
ED Disposition Clinical Impression: Right hip pain Chronic pain Qualifiers: Chronic pain type: other chronic pain Qualified Code(s): G89.29 - Other chronic pain Disposition: Home, Self-Care Condition on Discharge: Good Instructions: DI for Chronic Pain -- Adult Additional Instructions: see pcp friday Referrals: Jordon Zeng APRN [Primary Care Provider] - - Critical Care Critical Care Time: No Attestation: On 09/15/20, the high probability of a clinically significant, sudden or life threatening deterioration of the following system(s) required my full and direct attention, intervention and personal management. The time I documented below is in addition to time spent performing reported procedures but includes the following listed in this critical care notation. Medical Decision Making - Medical Records Medical records reviewed: Yes: I reviewed the patient's medical records. - Kodi Inquiry Pt receiving controlled substance: No Vital Signs: 09/15/20 23:39 Temperature 98.8 F Temperature Source Oral Pulse Rate [Right] 88 Respiratory Rate 16 Blood Pressure [Right Arm] 208/96 H Blood Pressure Mean [Right Arm] 133 Blood Pressure Source [Right Arm] Automatic Cuff Blood Pressure Position [Right Arm] Supine 02 Sat by Pulse Oximetry 95 Oxygen Delivery Method Room Air Orders (Tests/Meds): ED MEDICATIONS Discontinued Medications Generic Name Dose Route Start Last Admin Trade Name Freq PRN Reason Stop Dose Admin Acetaminophen/Codeine Phosphate 1 esteban 09/16/20 00:10 Acetaminophen 300mg W/Codeine 30mg Take Home Pack (6) PO 09/16/20 00:11 ONCE ONE Medical Decision Narrative: call clinic in am General Adult HPI - General Chief complaint: PAIN Stated complaint: Rt Hip Pain from prior injury/surgery Time Seen by Provider: 09/16/20 00:00 Mode of Arrival: Wheelchair Source of Information: Patient, Medical Record Limitations: No Limitations Description of Symptoms (Recalled from ER Triage Doc. by RN): Pt states she has chronic right hip pain from a previous injury and she ran out of her percocets, she attempted to call the office today around 3pm but states she couldn't get in. Pt states she just had that hip xrayed a couple days ago and has not re-injured it - History of Present Illness HPI narrative: rt hip pain which is chronic and is out of pain meds - called pcp and uncertain if meds called in Onset (ago): day(s) Location: lower extremity Severity: moderate Associated symptoms: denies other symptoms - Related Data Previous Rx's Medication Instructions Recorded fluoxetine 40 mg capsule 40 mg PO DAILY #30 cap 06/15/20 insulin aspart U-100 100 unit/mL See Rx Instructions SQ DIRECTED 06/15/20 subcutaneous solution #1 vial insulin detemir U-100 100 unit/mL 10 unit SQ BID #1 vial 06/15/20 subcutaneous solution [id number] 2 cap PO AC #180 cap 06/15/20 36,000-114,000-180,000 unit capsule,delay rel nebivolol 20 mg tablet 20 mg PO DAILY #30 tab 06/15/20 pantoprazole 40 mg tablet,delayed 40 mg PO DAILY #30 tab 06/15/20 release alendronate 70 mg tablet 70 mg PO WEEKLY #5 tab 06/19/20 dicyclomine 20 mg tablet See Rx Instructions .ROUTE 07/17/20 .COMPLEX #120 tab lisinopril 20 mg tablet See Rx Instructions .ROUTE 07/17/20 .COMPLEX #60 tab ropinirole 0.5 mg tablet See Rx Instructions .ROUTE 07/17/20 .COMPLEX #90 tab acetaminophen 325 mg tablet See Rx Instructions .ROUTE 08/21/20 .COMPLEX #60 tab blood-glucose meter,continuous See Rx Instructions .MEDSUPPLY #1 08/24/20 each blood-glucose sensor See Rx Instructions MISCELLANE 08/24/20 .MEDSUPPLY #3 each blood-glucose transmitter See Rx Instructions .MEDSUPPLY #1 08/24/20 each oxycodone-acetaminophen 10 mg-325 1 tab PO QID PRN #30 tab 08/25/20 mg tablet aspirin 325 mg tablet,delayed See Rx Instructions .ROUTE 09/12/20 release .COMPLEX #30 tab metoclopramide HCl 10 mg tablet See Rx
[2020-09-16 00:25] VITALS: BP 205/83; PULSE 85; RESP 18; TEMP 36.9; O2SAT 95
== END 2020-09-16 00:26 | disposition home or self-care (01) ==
PROVIDERS: Emergency Provider Emergency Medicine; PCP Nurse Practitioner Family
DX: M25.551 Pain in right hip (principal); G89.29 Other chronic pain; J44.9 Chronic obstructive pulmonary disease, unspecified; I25.10 Atherosclerotic heart disease of native coronary artery without angina pectoris; E11.9 Type 2 diabetes mellitus without complications; E78.5 Hyperlipidemia, unspecified; I10 Essential (primary) hypertension; I25.2 Old myocardial infarction; F17.210 Nicotine dependence, cigarettes, uncomplicated
CPT/HCPCS: 99281

== ENCOUNTER 2020-09-22 06:16 | Observation (INO) | payer MEDICARE, OTHER, SELFPAY ==
[2020-09-22] VITALS (37 sets, daily range): BP systolic 97–226; BP diastolic 53–109; PULSE 60–112; RESP 16–20; TEMP 36.4–37.5; O2SAT 91–98; BMI 14.6; BMI 14.2; BMI 14.8
--- NOTE | 2020-09-22 06:16 | ECG_ITS ---
APPROVED REPORT Exam: Resting ECG HR:84 bpm ECG Measurements Heart Rate 84 AXES [place] 118 P 92 QRSd 92 QRS 83 QT 366 T 85 QTc 432 Conclusion Normal sinus rhythm Right atrial enlargement Moderate voltage criteria for LVH, may be normal variant Nonspecific ST abnormality Abnormal ECG Electronically signed by : Silvestre Dang, 09/22/2020 18:11:08
--- NOTE | 2020-09-22 06:23 | XR_ITS ---
PROCEDURE: XR CHEST 2V CLINICAL HISTORY: chest discomfort Smoker COMPARISON: CR XR CHEST 2V from 04/10/2020 CR XR CHEST PORTABLE from 04/29/[address] ABDOMEN PELVIS WO CON from 09/08/2020 FINDINGS: Prior CABG. Normal size. COPD changes. No lobar consolidation collapse. Old granulomatous disease. Sub cm nodular density overlies the left lower lung zone may be due to nipple shadow. There is a 9 mm nodular opacity in the right lower lobe laterally as recently described on the abdomen CT. Follow-up suggested to confirm stability.. No acute bony abnormalities. IMPRESSION: COPD. Indeterminate 9 mm right lower lobe nodule. Follow-up suggested Dictated by: Sumanth Sanchez MD 09/22/2020 07:29 Sumanth Sanchez MD in [facility] 09/22/2020 07:29
[2020-09-22 06:39] LABS: Basophils % 0.3 % (0.1-2.0); Eosinophils % 0.4 % (0.1-12.0); Hematocrit 47.7 % (37.0-47.0); Hemoglobin 15.1 g/dL (12.2-16.2); Lymphocytes # 1.1 K/mm3 (0.7-4.5); Lymphocytes % 12.4 % (10-50); Mean Corpuscular HGB Conc 31.7 g/dL (31.8-35.4); Mean Corpuscular Hemoglobin 30.1 pg (27.0-31.2); Mean Corpuscular Volume 95.1 fl (81-99); Mean Platelet Volume 8.8 fl (7.4-10.4); Monocytes # 0.4 K/mm3 (0.1-1.0); Monocytes % 4.5 % (1.7-9.3); Neutrophils # 7.2 K/mm3 (1.8-7.8); Neutrophils % 82.4 % (37.0-80.0); Platelet Count 238 K/mm3 (142-424); Red Blood Count 5.02 M/mm3 (4.20-5.40); Red Cell Distribution Width 13.1 % (11.5-17.5); White Blood Count 8.7 K/mm3 (4.8-10.8)
[2020-09-22 06:43] LABS: Alanine Aminotransferase 17 U/L (12-78); Albumin Level 4.4 g/dl (3.5-5.0); Alkaline Phosphatase 203 U/L (38-126); Amylase 129 U/L (30-110); Anion Gap 16.5 mEq/L (5-15); Aspartate Amino Transferase 27 U/L (14-36); Bilirubin,Direct 0.1 mg/dl (0.0-0.4); Bilirubin,Indirect 0.5 mg/dL (0.0-0.9); Bilirubin,Total 0.6 mg/dl (0.2-1.3); Bilirubin,Unconjugated 0.5 mg/dL (0.0-1.1); Blood Urea Nitrogen 25 mg/dl (7-17); Calcium 10.1 mg/dl (8.4-10.2); Carbon Dioxide 34 mmol/L (22.0-30.0); Chloride 87 mmol/L (98-107); Creatinine Clearance Estimated 28 mL/min (50-200); Estimated Glomerular Filt Rate 45 ml/min (>60); GFR (African American) 55 ML/MIN (>60); Lipase 129 U/L (23-300); Potassium 4.5 mmoL/L (3.5-5.1); Sodium 133 mmol/L (136-145); Total Protein,Serum 7.5 g/dl (6.3-8.2)
[2020-09-22 06:48] LABS: Glucose 621 mg/dl (74-100)
[2020-09-22 06:51] LABS: C-Reactive Protein 2.5 mg/L (0-4)
--- NOTE | 2020-09-22 06:55 | HMH.EDNVD ---
ED Disposition Clinical Impression: Diabetes mellitus, insulin dependent (IDDM), uncontrolled, Renal insufficiency, Low body mass index (BMI), Hx of CABG, Pulmonary nodule Abdominal pain Qualifiers: Abdominal location: epigastric Qualified Code(s): R10.13 - Epigastric pain COPD (chronic obstructive pulmonary disease) Qualifiers: COPD type: unspecified COPD Qualified Code(s): J44.9 - Chronic obstructive pulmonary disease, unspecified Disposition: Admitted as Observation Condition on Discharge: Good - Critical Care Critical Care Time: No Attestation: On 09/22/20, the high probability of a clinically significant, sudden or life threatening deterioration of the following system(s) required my full and direct attention, intervention and personal management. The time I documented below is in addition to time spent performing reported procedures but includes the following listed in this critical care notation. Medical Decision Making - Medical Records Medical records reviewed: Yes: I reviewed the patient's medical records. - Kodi Inquiry Pt receiving controlled substance: No Vital Signs: 09/22/20 06:17 09/22/20 06:30 Temperature 98.1 F Temperature Source Oral Pulse Rate 82 Pulse Rate [Left Radial] 81 Respiratory Rate 20 17 Blood Pressure 220/95 H Blood Pressure [Right Arm] 199/108 H Blood Pressure Mean 136 Blood Pressure Mean [Right Arm] 138 Blood Pressure Source [Right Arm] Automatic Cuff Blood Pressure Position [Right Arm] Supine 02 Sat by Pulse Oximetry 98 98 Oxygen Delivery Method Room Air - Lab Data Lab results reviewed: Yes: I reviewed the patient's lab results. Lab Results 09/22/20 06:20: WBC 8.7, RBC 5.02, Hgb 15.1, Hct 47.7 H, MCV 95.1, MCH 30.1, MCHC 31.7 L, RDW 13.1, Plt Count 238, MPV 8.8, Neut % (Auto) 82.4 H, Lymph % (Auto) 12.4, [place] % (Auto) 4.5, Eos % (Auto) 0.4, Baso % (Auto) 0.3, Neut # (Auto) 7.2, Lymph # (Auto) 1.1, [place] # (Auto) 0.4, Eos # (Auto) 0.0, Baso # (Auto) 0.0 09/22/20 06:20: Sodium 133 L, Potassium 4.5, Chloride 87 L, Carbon Dioxide 34 H, Anion Gap 16.5 H, BUN 25 H, Creatinine 1.20 H, Estimated Creat Clear 28, Estimated GFR 45 L, Est GFR ( Amer) 55 L, Glucose 621 H*, Calcium 10.1, Total Bilirubin 0.6, Direct Bilirubin 0.1, Conjugated Bilirubin 0.0, Indirect Bilirubin 0.5, Unconjugated Bilirubin 0.5, AST 27, ALT 17, Alkaline Phosphatase 203 H, Troponin I < 0.01, C-Reactive Protein 2.5, NT-Pro-B Natriuret Pep 551 H, Total Protein 7.5, Albumin 4.4, Amylase 129 H, Lipase 129, Procalcitonin 0.107 Result diagrams: 09/22/20 06:20 09/22/20 06:20 Orders (Tests/Meds): ED MEDICATIONS Generic Name Dose Route Start Last Admin Trade Name Freq PRN Reason Stop Dose Admin Sodium Chloride 1,000 mls @ 999 mls/hr 09/22/20 06:30 09/22/20 06:43 Sod Chlor 0.9% 1000ml Bag IV 09/22/20 07:30 999 mls/hr .Q1H1M VAN Administration Sodium Chloride 8 ml 09/22/20 06:27 Sodium Chloride 0.9% 10ml Vial IV 10/22/20 06:26 NEEDED PRN dilute pepcid Discontinued Medications Generic Name Dose Route Start Last Admin Trade Name Freq PRN Reason Stop Dose Admin Famotidine 20 mg 09/22/20 06:27 09/22/20 06:43 Famotidine 20mg/2ml Vial IV 09/22/20 06:28 20 mg ONCE ONE Administration Insulin Human Regular 5 unit 09/22/20 07:12 09/22/20 07:15 Insulin Human Regular 100 Units/Ml 10ml Vial IVP 09/22/20 07:13 5 unit ONCE ONE Administration Ketorolac Tromethamine 30 mg 09/22/20 06:36 09/22/20 06:43 Ketorolac 30mg/Ml Vial IV 09/22/20 06:37 30 mg ONCE ONE Administration Metoclopramide HCl 10 mg 09/22/20 06:27 09/22/20 06:43 Metoclopramide Hcl 10mg/2ml Vial IVP 09/22/20 06:28 10 mg ONCE ONE Administration Ondansetron HCl 4 mg 09/22/20 06:36 09/22/20 06:43 Ondansetron 4mg/2ml Vial IV 09/22/20 06:37 4 mg ONCE ONE Administration ORDERS Category Date Time Status Acetone, Serum (Rapid) Stat Lab 09/22/20
[2020-09-22 06:58] LABS: NT Pro Brain Natriuretic Pep. 551 pg/mL (0-125)
[2020-09-22 07:02] LABS: Procalcitonin 0.107 ng/mL (0.0-2.0)
--- NOTE | 2020-09-22 07:05 | PC.NURSE ---
pt refuses contrast. states she is allergic and will not take it.
[2020-09-22 07:06] LABS: Troponin I < 0.01 ng/ml (0.00-0.034)
[2020-09-22 07:50] LABS: Microscopic, Urine URINE MICROSCOPIC (MICROSCOPIC)
[2020-09-22 07:57] LABS: Appearance,Urine CLEAR (Clear); Bilirubin,Urine Negative (Negative); Blood, Urine Negative (Negative); Color,Urine YELLOW (Yellow); Glucose,Urine (UA) 3+ (Negative); Ketones,Urine 1+ (Negative); Leukocyte Esterase,Urine Negative (Negative); Nitrate,Urine Negative (Negative); Protein,Urine 2+ (Negative); Specific Gravity, Urine 1.015 (1.005-1.030); Urobilinogen,Urine 0.2 EU/dl (0.2)
[2020-09-22 08:02] LABS: Acetone, Serum (Rapid) None Detected (None Detect)
[2020-09-22 08:03] LABS: Squamous Epithelial Cell,Urine Occasional #/hpf (0-5); WBC,Urine Occasional #/hpf (0-3)
[2020-09-22 08:08] LABS: Erythrocyte Sedimentation Rate 8 mm/hr (0-30)
--- NOTE | 2020-09-22 08:47 | PC.NURSE ---
pt c/o epigastric pain, nausea
[2020-09-22 08:59] LABS: Adenovirus,PCR Not Detected (NotDetected); Bordetella Pertussis Not Detected (NotDetected); Chlamydophila Pneumoniae, PCR Not Detected (NotDetected); Coronavirus 19, PCR Not Detected (NotDetected); Coronavirus 229E Not Detected (NotDetected); Coronavirus NL63 Not Detected (NotDetected); Coronavirus OC43 Not Detected (NotDetected); Coronovirus HKU1,PCR Not Detected (NotDetected); Human Metapneumovirus Not Detected (NotDetected); Influenza A, PCR Not Detected (NotDetected); Influenza AH1, 2009 Not Detected (NotDetected); Influenza AH1, PCR Not Detected (NotDetected); Influenza AH3,PCR Not Detected (NotDetected); Influenza B, PCR Not Detected (NotDetected); Mycoplasma Pneumoniae, PCR Not Detected (NotDetected); Parainfluenza 1, PCR Not Detected (NotDetected); Parainfluenza 2, PCR Not Detected (NotDetected); Parainfluenza 3, PCR Not Detected (NotDetected); Parainfluenza 4, PCR Not Detected (NotDetected); Respiratory Syncytial Virus Not Detected (NotDetected); Rhinovirus/Enterovirus Not Detected (NotDetected)
[2020-09-22 10:21] LABS: Troponin I < 0.01 ng/ml (0.00-0.034)
--- NOTE | 2020-09-22 10:44 | PC.NURSE ---
report called to floor
--- NOTE | 2020-09-22 10:47 | PC.NURSE ---
1040 Report received from Kiana Matos RN in ER.
[2020-09-22 11:01] LABS: POC Glucose,Bedside 407 (70-110)
[2020-09-22 11:25] LABS: POC Glucose,Bedside 424 (70-110)
[2020-09-22 13:23] LABS: Troponin I 0.01 ng/ml (0.00-0.034)
--- NOTE | 2020-09-22 13:55 | HMH.HP ---
*Admission Date: 09/22/20 *Chief complaint: vomiting *History of present illness: this pt presented to the ed with upper abd pain with vomiting and dec po intake - pt has ongoing diabetes and has chronic pain issues - no melena reported - pt has seen pcp for this also - pt was found to have elevated glu in the ed and did not obtain relief with meds in the ed and was admitted for treatment and evaluation [facility] History I have reviewed the patient's past medical history: Yes Medical History: Reports:: Cancer, Chronic Obstructive Pulmonary Disease (COPD), Coronary Artery Disease, Diabetes Mellitus Type 2, Hyperlipidemia, Hypertension, Myocardial Infarction Denies:: MRSA *Have you ever received a pneumonia vaccine?: Yes *Have you received a flu vaccine this season?: Yes Other Medical History: Reports: Arthritis, Cataracts Other Surgeries: Yes: Angioplasty, Appendectomy, CABG, Cancer Surgery, Cardiac Catheterization, Cardiac Surgery, Cholecystectomy, Colonoscopy, Coronary Stent, Hysterectomy-Total, Other Amputation: No Fractures: Yes - *Social History Last grade of school completed: Some college Smoking Status: Current every day smoker Tobacco Type: cigarettes # Packs/Day (cigarettes): 1 #Yrs smoked (if former smoker): 50 Alcohol Intake: never Substance Use Type: denies use *Occupational Status:: retired Housing: house *Travel in the last 8 weeks: None Family Hx:: Cancer, Coronary Artery Disease, Diabetes, Heart Attack, Stroke Review of Systems - Review of Systems Review of systems:: pertinent systems reviewed and negative unless documented below - Constitutional Denies fever(s) - Eyes Denies change in vision - ENT Denies dizziness - *Cardiovascular Denies chest pain - *Respiratory Denies cough - *Gastrointestinal Reports abdominal pain, Reports nausea, Reports vomiting, Denies black, tarry stools - *Genitourinary Denies blood in urine - *Musculoskeletal Reports back pain - Integumentary/Breasts Denies rash - *Neurologic Denies headache(s), Denies seizure-like activity - Psychiatric Reports anxiety Meds Home Medications Medication Instructions Recorded Confirmed Type fluoxetine 40 mg capsule 40 mg PO DAILY #30 cap 06/15/20 09/22/20 Rx insulin detemir U-100 100 unit/mL 10 unit SQ BID #1 vial 06/15/20 09/22/20 Rx subcutaneous solution [id number] 2 cap PO AC #180 cap 06/15/20 09/22/20 Rx 36,000-114,000-180,000 unit capsule,delay rel nebivolol 20 mg tablet 20 mg PO DAILY #30 tab 06/15/20 09/22/20 Rx pantoprazole 40 mg tablet,delayed 40 mg PO DAILY #30 tab 06/15/20 09/22/20 Rx release oxycodone-acetaminophen 10 mg-325 1 tab PO QID PRN #30 tab 09/18/20 09/22/20 Rx mg tablet Acetaminophen 650 mg PO Q6H 09/22/20 09/22/20 History Albuterol Sulfate [Proair 1 puff INHALATION DAILY PRN 09/22/20 09/22/20 History Respiclick] Alendronate Sodium [Fosamax 70mg 70 mg PO WEEKLY 09/22/20 09/22/20 History Tablet] Aspirin [Aspirin EC 325mg Tab] 1 tab PO DAILY 09/22/20 09/22/20 History Dicyclomine HCl 20 mg PO DAILY 09/22/20 09/22/20 History Insulin Aspart 1 unit SQ DIRECTED 09/22/20 09/22/20 History Metoclopramide HCl [Metoclopramide 10 mg PO DAILY 09/22/20 09/22/20 History 10mg Tablet] Ropinirole HCl 0.5 mg PO DAILY 09/22/20 09/22/20 History lisinopriL [Prinivil 20mg Tablet] 20 mg PO DAILY 09/22/20 09/22/20 History Allergies Allergy/AdvReac Type Severity Reaction Status Date / Time Iodinated Contrast Media Allergy Verified 09/20/20 14:13 Exam Vital signs and Labs for Last 24 Hours: Temp Pulse Resp BP Pulse Ox 98.2 F 60 18 182/85 H 95 09/22/20 12:30 09/22/20 12:30 09/22/20 12:30 09/22/20 12:30 09/22/20 12:30 Laboratory Results - last 24 hr 09/22/20 06:20: WBC 8.7, RBC 5.02, Hgb 15.1, Hct 47.7 H, MCV 95.1, MCH 30.1, MCHC 31.7 L, RDW 13.1, Plt Count 238, MPV 8.8, Neut % (Auto) 82.4 H, Lymph % (Auto) 12.4, [place] % (Auto) 4.5, Eos % (Auto)
--- NOTE | 2020-09-22 14:40 | PC.NURSE ---
1433 PT leaving department for EGD.
[2020-09-22 14:47] LABS: POC Glucose,Bedside 216 (70-110)
--- NOTE | 2020-09-22 15:24 | PC.NURSE ---
1524 Pt remains off floor for procedure.
--- NOTE | 2020-09-22 15:56 | HMH.ANESCL ---
[facility] Anesthesia Checklist - Patient Identification Patient Identification: Arm Band - Structural Data Admitted From: Home Planned Operative Procedure/s: EGD Consent for Planned Operative Procedure(s) Verified: Yes - NPO Status Verified Time NPO: 00:00 - Additional verifications Anesthesia Reactions: No - Neurological Assessment Level of Consciousness: Awake - Anesthesia Plan Anesthesia Risk discussed: Yes Anesthesia Plan: Verified ASA Class: III Anesthesia Type: MAC [facility] History I have reviewed the patient's past medical history: Yes Medical History: Reports:: Cancer, Chronic Obstructive Pulmonary Disease (COPD), Coronary Artery Disease, Diabetes Mellitus Type 2, Hyperlipidemia, Hypertension, Myocardial Infarction Denies:: MRSA *Have you ever received a pneumonia vaccine?: Yes *Have you received a flu vaccine this season?: Yes Other Medical History: Reports: Arthritis, Cataracts Anesthesia experience/problems:: None Other Surgeries: Yes: Angioplasty, Appendectomy, CABG, Cancer Surgery, Cardiac Catheterization, Cardiac Surgery, Cholecystectomy, Colonoscopy, Coronary Stent, Hysterectomy-Total, Other Amputation: No Fractures: Yes - *Social History Last grade of school completed: Some college Smoking Status: Current every day smoker Tobacco Type: cigarettes # Packs/Day (cigarettes): 1 #Yrs smoked (if former smoker): 50 Alcohol Intake: never Substance Use Type: denies use *Occupational Status:: retired Housing: house *Travel in the last 8 weeks: None Family Hx:: Cancer, Coronary Artery Disease, Diabetes, Heart Attack, Stroke
--- NOTE | 2020-09-22 16:19 | P.PCN_ITS ---
[facility] Procedure Note Procedure Note:: Upper Endoscopy Procedure Report: Esophagogastroduodenoscopy with cold biopsies Endoscopost: Toan Fairchild II, MD Referring Physician: Silvestre Lora MD Date of Procedure: September 22, 2020 Equipment: Olympus GIF 190 standard upper endoscope Sedation: MAC sedation Indications: Mrs. Jo is a 65-year-old female with recurrent pancreatitis requiring multiple ERCPs in the past. She also has a history of gastroparesis and delayed gastric emptying by a gastric emptying nuclear tagged study in September 2017. She does have uncontrolled diabetes. The patient did have a colonoscopy previously. She has been seen at [facility] as well as [facility]. The patient was admitted with abdominal pain, nausea and vomiting. She had seen Dr. Mitesh Weiner at [facility] because of her recurrent symptoms. She had an ERCP with me in March 2019 showing early chronic pancreatitis but no stricturing or ductular calcifications or ductular ectasias. Procedure: Prior to the procedure, a history and physical exam was performed, and patient's medications and allergies were reviewed. The risks, benefits and alternatives of the sedation and procedure were discussed with the patient. All questions were answered and informed consent was obtained. The patient was brought to the procedure room. Patient identification and proposed procedure were verified by the physician and the nurse. The patient was placed in a left lateral decubitus position and the scope was passed under direct vision. Throughout the procedure, the patient's blood pressure, pulse, and oxygen saturations were monitored continuously. The upper GI endoscopy was accomplished without difficulty. The patient tolerated the procedure well. Findings: The scope was passed directly into the upper esophagus and advanced to the third portion of the duodenum. The post bulbar duodenum and duodenal bulb were normal with normal mucosa and conniventes. There was mild duodenal lymphoid stasis. The scope was withdrawn through a normal duodenal bulb and pylorus into the stomach. There was linear reactive gastropathy of the antrum. There was evidence of a moderate amount of dark retained old food content and small bezoar within the body and fundus of the stomach. The remainder of the fundus of the stomach was grossly normal. Upon retroflexion there was 3 to 4 cm hiatal hernia. 2 biopsies were taken in the antrum and along the lesser curvature for histology to rule out gastritis and/or H pylori. The scope was then withdrawn into the esophagus. There was a serrated Z-line. There was reduced LES resting tone. A biopsy was taken at the GE junction. There was no evidence of reflux esophagitis or Morales's. There were tertiary contractions. The remainder of the esophageal mucosa was normal. Impression: 1. Nonerosive GERD with moderate esophageal dysmotility and medium size 3 to 4 cm hiatal hernia 2. Gastric dysmotility/delayed gastric emptying consistent with gastroparesis 3. 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 She has been followed by the [facility]. I will review medicines but she needs to be on treatment for promotility and visceral sensitivity. I would like for her to follow back up with her prior treating physicians. I will follow-up the biopsies.
--- NOTE | 2020-09-22 16:23 | HMH.ANESI ---
[facility] Anesthesia Record Part I Intake, IV Amount: 200 Estimated blood loss (mL): 0 Urine output (mL): 0 Blood Pressure: 129/59 SaO2: 98 Pulse Rate: 97 Respiratory Rate: 16 Temperature: 99.5 F Patient is:: Drowsy Stable to PACU at:: 16:21
--- NOTE | 2020-09-22 16:26 | PC.NURSE ---
[id number] Report received from Kiana Guillen RN in PACU
[2020-09-22 17:08] LABS: POC Glucose,Bedside 205 (70-110)
--- NOTE | 2020-09-22 17:49 | PC.NURSE ---
1700 Pt to department via bed, s/p EGD. Pt tolerated procedure well, continues to c/o abdominal pain and nausea, medicated per EMAR. RN reassessment completed, no acute changes from admission assessment. Abd soft and mildly tender with BS active in all quads. Lung sounds CTA. BP remains hypertensive, will notify MD for further orders. Bed locked and in lowest position with side rails up x2 and call light within reach. Will continue to monitor.
--- NOTE | 2020-09-22 19:05 | PC.NURSE ---
report received from Tori Gandhi RN
[2020-09-22 21:00] LABS: POC Glucose,Bedside 202 (70-110)
[2020-09-23] VITALS (14 sets, daily range): BP systolic 77–165; BP diastolic 40–71; PULSE 64–86; RESP 18–19; TEMP 36.4–36.8; O2SAT 93–98; BMI 15.5; BMI 15.4
--- NOTE | 2020-09-23 01:35 | PC.NURSE ---
at 0127 bp cuff read 77/45, pt was sleeping comfortably at this time, pt easy to arouse denies blurred vision or spots, pt denies headache, manual bp noted at this time to be 82/40, dr gallego was paged and report given and pt bps trending down throughout night after clonidine and current reading of 82/40 but pt remaining asymptomatic with it, md states no new orders at this time, clarified no bolus needed with md and he states no just continue to run normal saline at 100ml/hr , md states as long as pt remains asymptomatic she is ok
--- NOTE | 2020-09-23 05:26 | PC.NURSE ---
pt has rested well throughout shift, lungs remain clear to auscultate, heart rate regular, bs x 4, abd remains tender with intermittent epigastric pain noted, treated with scheduled protonix and reglan and mostly controlled at this time, pt was hypotensive throughout shift but was asymptomatic with hypotension bp has since stabilized and systolic bp in 130s, pt tolerating diet was able to consume chicken noodle soup and pudding without nausea, no needs at this time, will continue to monitor
[2020-09-23 05:59] LABS: POC Glucose,Bedside 174 (70-110)
[2020-09-23 06:02] LABS: Basophils % 0.3 % (0.1-2.0); Eosinophils # 0.2 K/mm3 (0.0-0.4); Hematocrit 39.2 % (37.0-47.0); Lymphocytes # 2.5 K/mm3 (0.7-4.5); Lymphocytes % 25.3 % (10-50); Mean Corpuscular HGB Conc 32.4 g/dL (31.8-35.4); Mean Corpuscular Hemoglobin 30.4 pg (27.0-31.2); Mean Corpuscular Volume 93.9 fl (81-99); Mean Platelet Volume 8.5 fl (7.4-10.4); Monocytes # 0.5 K/mm3 (0.1-1.0); Monocytes % 4.9 % (1.7-9.3); Neutrophils # 6.7 K/mm3 (1.8-7.8); Neutrophils % 67.5 % (37.0-80.0); Platelet Count 182 K/mm3 (142-424); Red Blood Count 4.18 M/mm3 (4.20-5.40); Red Cell Distribution Width 12.9 % (11.5-17.5); White Blood Count 9.9 K/mm3 (4.8-10.8)
[2020-09-23 06:06] LABS: Hemoglobin 12.7 g/dL (12.2-16.2)
[2020-09-23 06:26] LABS: Alanine Aminotransferase 8 U/L (12-78); Albumin Level 3.1 g/dl (3.5-5.0); Albumin/Globulin Ratio 1.2 (1.1-1.8); Alkaline Phosphatase 121 U/L (38-126); Aspartate Amino Transferase 24 U/L (14-36); Bilirubin,Total 0.4 mg/dl (0.2-1.3); Blood Urea Nitrogen 27 mg/dl (7-17); Carbon Dioxide 29 mmol/L (22.0-30.0); Chloride 103 mmol/L (98-107); Creatinine Clearance Estimated 31 mL/min (50-200); Estimated Glomerular Filt Rate 45 ml/min (>60); GFR (African American) 55 ML/MIN (>60); Globulin 2.5 g/dL (1.3-3.2); Glucose 190 mg/dl (74-100); Sodium 137 mmol/L (136-145); Total Protein,Serum 5.6 g/dl (6.3-8.2)
[2020-09-23 06:28] LABS: Calcium 8.2 mg/dl (8.4-10.2)
--- NOTE | 2020-09-23 07:10 | PC.NURSE ---
REPORT RECEIVED FROM Cielo HARMAN RN.
--- NOTE | 2020-09-23 07:55 | PC.NURSE ---
PT ASSESSED AT THIS TIME. BILATERAL LUNGS WHEEZING THROUGHOUT. NO EDEMA NOTED. THIN FRAGILE SKIN WITH SCATTERED BRUISING. PT C/O SHARP PAIN IN LUQ AND AT UMBILICUS. RATES THIS A 7/10 ON VERBAL SCALE. WILL CONTINUE TO OBSERVE.
--- NOTE | 2020-09-23 08:05 | PC.NURSE ---
DR. KLEIN AT [facility] PLANS TO DC PT HOME TODAY
[2020-09-23 11:18] LABS: POC Glucose,Bedside 418 (70-110)
--- NOTE | 2020-09-23 11:19 | HMH.ANESII ---
[facility] Anesthesia Record Part II Discharge Time: 16:51 Destination: Surgical Day Care (OP Surgery) PACU nurse assessment reviewed?: Yes Patient Condition:: Good Anesthesia Complications:: None Swallowing reflex intact?: Yes Cyanosis?: No Blood Pressure: 165/71 Pulse Rate: 86 Temperature: 97.6 F Mental Status: Alert & Oriented Pain level:: 0 Nausea and/or vomitting:: None Intake, IV Amount: 800
--- NOTE | 2020-09-23 14:15 | HMH.DCSUM ---
General - General Admission date:: 09/22/20 Discharge date: 09/23/20 HPI HPI: this pt presented to the ed with upper abd pain with vomiting and dec po intake - pt has ongoing diabetes and has chronic pain issues - no melena reported - pt has seen pcp for this also - pt was found to have elevated glu in the ed and did not obtain relief with meds in the ed and was admitted for treatment and evaluation Hospital Course Hospital Course: Laboratory Tests 09/22/20 09/22/20 09/22/20 06:20 06:20 06:20 WBC 8.7 RBC 5.02 Hgb 15.1 Hct 47.7 H MCV 95.1 MCH 30.1 MCHC 31.7 L RDW 13.1 Plt Count 238 MPV 8.8 Neut % (Auto) 82.4 H Lymph % (Auto) 12.4 [place] % (Auto) 4.5 Eos % (Auto) 0.4 Baso % (Auto) 0.3 Neut # (Auto) 7.2 Lymph # (Auto) 1.1 [place] # (Auto) 0.4 Eos # (Auto) 0.0 Baso # (Auto) 0.0 ESR 8 Sodium 133 L Potassium 4.5 Chloride 87 L Carbon Dioxide 34 H Anion Gap 16.5 H BUN 25 H Creatinine 1.20 H Estimated Creat Clear 28 Estimated GFR 45 L Est GFR ( Amer) 55 L Glucose 621 H* POC Glucose Calcium 10.1 Total Bilirubin 0.6 Direct Bilirubin 0.1 Conjugated Bilirubin 0.0 Indirect Bilirubin 0.5 Unconjugated Bilirubin 0.5 AST 27 ALT 17 Alkaline Phosphatase 203 H Troponin I < 0.01 C-Reactive Protein 2.5 NT-Pro-B Natriuret Pep 551 H Total Protein 7.5 Albumin 4.4 Globulin Albumin/Globulin Ratio Amylase 129 H Lipase 129 Procalcitonin 0.107 Urine Color Urine Appearance Urine pH Ur Specific Institute Urine Protein Urine Glucose (UA) Urine Ketones Urine Blood Urine Nitrate Urine Bilirubin Urine Urobilinogen Ur Leukocyte Esterase Urine RBC Urine WBC Ur Squamous Epith Cells Urine Bacteria Acetone Level None detected Chlamy pneumoniae PCR Adenovirus (PCR) B. pertussis DNA (PCR) Coronavirus OC43 (PCR) Coronavirus HKU1 (PCR) Coronavirus 229E (PCR) SARS-CoV-2 (PCR) Coronavirus NL63 (PCR) Human Metapneumovir PCR Influenza A (H1) PCR Influ A (H1N1/09) PCR Influenza A (H3) PCR Influenza Type A (PCR) Influenza Type B (PCR) M. pneumoniae (PCR) Parainfluenza 1 (PCR) Parainfluenza 2 (PCR) Parainfluenza 3 (PCR) Parainfluenza 4 (PCR) RSV (PCR) Entero/Rhino (PCR) 09/22/20 09/22/20 09/22/20 07:15 07:45 09:37 WBC RBC Hgb Hct MCV MCH MCHC RDW Plt Count MPV Neut % (Auto) Lymph % (Auto) [place] % (Auto) Eos % (Auto) Baso % (Auto) Neut # (Auto) Lymph # (Auto) [place] # (Auto) Eos # (Auto) Baso # (Auto) ESR Sodium Potassium Chloride Carbon Dioxide Anion Gap BUN Creatinine Estimated Creat Clear Estimated GFR Est GFR ( Amer) Glucose POC Glucose Calcium Total Bilirubin Direct Bilirubin Conjugated Bilirubin Indirect Bilirubin Unconjugated Bilirubin AST ALT Alkaline Phosphatase Troponin I < 0.01 C-Reactive Protein NT-Pro-B Natriuret Pep Total Protein Albumin Globulin Albumin/Globulin Ratio Amylase Lipase Procalcitonin Urine Color Yellow Urine Appearance Clear Urine pH 8.0 Ur Specific Institute 1.015 Urine Protein 2+ Urine Glucose (UA) 3+ Urine Ketones 1+ Urine Blood Negative Urine Nitrate Negative Urine Bilirubin Negative Urine Urobilinogen 0.2 Ur Leukocyte Esterase Negative Urine RBC None Urine WBC Occasional Ur Squamous Epith Cells Occasional Urine Bacteria None Acetone Level Chlamy pneumoniae PCR Not detected Adenovirus (PCR) Not detected B. pertussis DNA (PCR) Not detected Coronavirus OC43 (PCR) Not detected Coronavirus HKU1 (PCR) Not detected Coronavirus 229E (PCR) Not detected KO
--- NOTE | 2020-09-23 14:31 | HMH.PHAVTE ---
[facility] Pharmacy VTE Monitoring - Patient Demographics Admission date: 09/23/20 Allergies/Adverse Reactions: Patient Allergies Iodinated Contrast Media Allergy (Verified 09/20/20 14:13) Height: 1.63 m Weight: 41 kg Patient Problems: Current Active Problems Epigastric pain (Acute) Abdominal pain (Acute) Low body mass index (BMI) (Acute) Hx of CABG (Acute) Pulmonary nodule (Acute) Hip pain (Chronic) Essential hypertension (Chronic) Diabetes mellitus, insulin dependent (IDDM), uncontrolled (Acute) Renal insufficiency (Acute) COPD (chronic obstructive pulmonary disease) (Chronic) - VTE Risk Labs: VTE Related Lab Results Hgb 12.7 g/dL (12.2-16.2) D 09/23/20 05:50 Hct 39.2 % (37.0-47.0) 09/23/20 05:50 Plt Count 182 K/mm3 (142-424) 09/23/20 05:50 BUN 27 mg/dl (7-17) H 09/23/20 05:50 Creatinine 1.20 mg/dl (0.52-1.04) H 09/23/20 05:50 Estimated Creat Clear 31 mL/min (50-200) 09/23/20 05:50 VTE Score: 4 VTE Risk Level: Low Risk - Prophylaxis Types of VTE Prophylaxis: TEDS Knee High (RICK HOSE ORDERED)
--- NOTE | 2020-09-23 14:58 | PC.NURSE ---
PT STATES THAT SHE FEELS HER BG IS LOW. RANDOM CHECK DONE AT THIS TIME. BG 69. PT GIVEN [employer] CRACKERS AND PB AND GRAPE JUICE. WILL RECHECK.
--- NOTE | 2020-09-23 15:12 | PC.NURSE ---
BG CHECKED AT THIS TIME BG 85. PT STATES SHE FEELS BETTER. DC INSTRUCTIONS GONE OVER AT THIS TIME. QUESTIONS ENCOURAGED AND ANSWERED AT THIS TIME.
[2020-09-23 15:21] LABS: POC Glucose,Bedside 85 (70-110)
[2020-09-23 15:21] LABS: POC Glucose,Bedside 69 (70-110)
== END 2020-09-23 15:30 | disposition home or self-care (01) ==
LOC: ER 06:31 → OB 07:57
PROVIDERS: Internal Medicine Gastroenterology; Admitting Provider Emergency Medicine; Emergency Provider Emergency Medicine; PCP Family Medicine; Visit Provider Emergency Medicine
PROC: 0DJ08ZZ Inspection of Upper Intestinal Tract, Via Natural or Artificial Opening Endoscopic (ICD-10-PCS; CPT 43235; principal; 2020-09-22 15:30)
DX: K21.9 Gastro-esophageal reflux disease without esophagitis (principal); K44.9 Diaphragmatic hernia without obstruction or gangrene; K22.4 Dyskinesia of esophagus; E11.65 Type 2 diabetes mellitus with hyperglycemia; Z79.4 Long term (current) use of insulin; E11.43 Type 2 diabetes mellitus with diabetic autonomic (poly)neuropathy; K31.84 Gastroparesis; J44.9 Chronic obstructive pulmonary disease, unspecified; I10 Essential (primary) hypertension; I25.2 Old myocardial infarction; Z95.1 Presence of aortocoronary bypass graft; Z95.5 Presence of coronary angioplasty implant and graft; K30 Functional dyspepsia; R10.13 Epigastric pain; R91.1 Solitary pulmonary nodule; R06.9 Unspecified abnormalities of breathing
CPT/HCPCS: 43239; 36415; 71046; 80048; 80053; 80076; 81001; 82009; 82150; 82962; 83690; 83880; 84145; 84484; 85025; 85651; 86140; 87581; 87633; 87798; 88305; 88342; 93005; 96365; 96375; 96376; 99284; G0378; J2405

== ENCOUNTER → 2020-09-28 18:40 | Outpatient (CLI) | payer MEDICARE, OTHER, SELFPAY ==
[2020-09-28 19:11] LABS: Benzodiazepines Screen,Urine Negative ng/ml (<200)
[2020-09-28 19:12] LABS: Amphetamine/Metha Screen,Urine Negative ng/ml (<1000)
[2020-09-28 19:13] LABS: Barbiturates Screen,Urine Negative ng/ml (<200); Cannabinoid Screen,Urine Negative ng/ml (<50)
[2020-09-28 19:14] LABS: Cocaine Screen,Urine Negative ng/ml (<300); Methadone Screen,Urine Negative ng/ml (<300)
[2020-09-28 19:15] LABS: Opiate Screen,Urine Negative ng/ml (<300)
[2020-09-28 19:16] LABS: Phencyclidine Screen,Urine Negative ng/ml (<25)
== END ==
PROVIDERS: Visit Provider Family Medicine
DX: G89.29 Other chronic pain (principal); M54.5 Low back pain
CPT/HCPCS: 80305

== ENCOUNTER → 2020-10-13 17:29 | Outpatient (CLI) | payer OTHER, MEDICARE, SELFPAY ==
[2020-10-13 18:17] LABS: Opiate Screen,Urine Negative ng/ml (<300)
[2020-10-13 18:18] LABS: Phencyclidine Screen,Urine Negative ng/ml (<25)
[2020-10-13 18:20] LABS: Benzodiazepines Screen,Urine Negative ng/ml (<200)
[2020-10-13 18:21] LABS: Amphetamine/Metha Screen,Urine Negative ng/ml (<1000); Barbiturates Screen,Urine Negative ng/ml (<200)
[2020-10-13 18:22] LABS: Cannabinoid Screen,Urine Negative ng/ml (<50)
[2020-10-13 18:23] LABS: Cocaine Screen,Urine Negative ng/ml (<300); Methadone Screen,Urine Negative ng/ml (<300)
== END ==
PROVIDERS: Visit Provider Family Medicine
DX: G89.29 Other chronic pain (principal); M54.5 Low back pain
CPT/HCPCS: 80305

== ENCOUNTER → 2020-10-20 17:58 | Outpatient (CLI) | payer MEDICARE, OTHER, SELFPAY ==
[2020-10-20 18:47] LABS: Amphetamine/Metha Screen,Urine Negative ng/ml (<1000); Barbiturates Screen,Urine Negative ng/ml (<200)
[2020-10-20 18:48] LABS: Benzodiazepines Screen,Urine Negative ng/ml (<200); Cocaine Screen,Urine Negative ng/ml (<300)
[2020-10-20 18:49] LABS: Methadone Screen,Urine Negative ng/ml (<300)
[2020-10-20 18:50] LABS: Cannabinoid Screen,Urine Negative ng/ml (<50)
[2020-10-20 18:51] LABS: Opiate Screen,Urine Negative ng/ml (<300)
[2020-10-20 18:52] LABS: Phencyclidine Screen,Urine Negative ng/ml (<25)
== END ==
PROVIDERS: Visit Provider Family Medicine
DX: G89.29 Other chronic pain (principal); M54.5 Low back pain
CPT/HCPCS: 80305

== ENCOUNTER → 2020-11-08 13:15 | Outpatient (CLI) | payer OTHER, MEDICARE, SELFPAY ==
[2020-11-08 14:27] LABS: Amphetamine/Metha Screen,Urine Negative ng/ml (<1000)
[2020-11-08 14:28] LABS: Barbiturates Screen,Urine Negative ng/ml (<200)
[2020-11-08 14:29] LABS: Benzodiazepines Screen,Urine Negative ng/ml (<200); Cannabinoid Screen,Urine Negative ng/ml (<50)
[2020-11-08 14:30] LABS: Cocaine Screen,Urine Negative ng/ml (<300); Methadone Screen,Urine Negative ng/ml (<300)
[2020-11-08 14:31] LABS: Opiate Screen,Urine Positive ng/ml (<300)
[2020-11-08 14:32] LABS: Phencyclidine Screen,Urine Negative ng/ml (<25)
== END ==
PROVIDERS: Visit Provider Family Medicine
DX: G89.29 Other chronic pain (principal); M54.5 Low back pain; Z79.899 Other long term (current) drug therapy
CPT/HCPCS: 80305

== ENCOUNTER → 2020-11-21 18:25 | Outpatient (CLI) | payer OTHER, MEDICARE, SELFPAY ==
[2020-11-21 18:39] LABS: Chloride 100 mmol/L (98-107); Sodium 136 mmol/L (136-145)
[2020-11-21 18:40] LABS: Potassium 4.5 mmoL/L (3.5-5.1)
[2020-11-21 18:41] LABS: Basophils # 0.1 K/mm3 (0-0.2); Basophils % 0.8 % (0.1-2.0); Eosinophils # 0.2 K/mm3 (0.0-0.4); Eosinophils % 1.9 % (0.1-12.0); Hemoglobin 14.5 g/dL (12.2-16.2); Lymphocytes # 1.7 K/mm3 (0.7-4.5); Lymphocytes % 19.8 % (10-50); Mean Corpuscular HGB Conc 32.2 g/dL (31.8-35.4); Mean Corpuscular Hemoglobin 30.7 pg (27.0-31.2); Mean Corpuscular Volume 95.3 fl (81-99); Mean Platelet Volume 8.6 fl (7.4-10.4); Monocytes # 0.5 K/mm3 (0.1-1.0); Monocytes % 6.2 % (1.7-9.3); Neutrophils # 6.1 K/mm3 (1.8-7.8); Neutrophils % 71.2 % (37.0-80.0); Platelet Count 227 K/mm3 (142-424); Red Blood Count 4.72 M/mm3 (4.20-5.40); Red Cell Distribution Width 13.5 % (11.5-17.5); White Blood Count 8.5 K/mm3 (4.8-10.8)
[2020-11-21 18:42] LABS: Alanine Aminotransferase 11 U/L (12-78); Albumin Level 4.4 g/dl (3.5-5.0); Albumin/Globulin Ratio 1.5 (1.1-1.8); Alkaline Phosphatase 165 U/L (38-126); Anion Gap 12.5 mEq/L (5-15); Aspartate Amino Transferase 26 U/L (14-36); Bilirubin,Total 0.4 mg/dl (0.2-1.3); Blood Urea Nitrogen 32 mg/dl (7-17); Calcium 9.3 mg/dl (8.4-10.2); Carbon Dioxide 28 mmol/L (22.0-30.0); Cholesterol 271 mg/dl (140-200); Estimated Glomerular Filt Rate 50 ml/min (>60); GFR (African American) 60 ML/MIN (>60); Globulin 2.9 g/dL (1.3-3.2); Glucose 145 mg/dl (74-100); Total Protein,Serum 7.3 g/dl (6.3-8.2); Triglycerides 221 mg/dl (30-150); VLDL Cholesterol 44 mg/dL (0-40)
[2020-11-21 18:43] LABS: Chol/HDL Ratio 4.2 (1-3.5); HDL Cholesterol 64 mg/dl (40-60)
[2020-11-21 18:50] LABS: Creatinine,Urine Random 141 mg/dL (Not Estab.); Microalbumin > 190.000 mg/L (0-16.7); Microalbumin/Creatinine Ratio 134.7
[2020-11-21 18:51] LABS: Barbiturates Screen,Urine Negative ng/ml (<200)
[2020-11-21 18:52] LABS: Benzodiazepines Screen,Urine Negative ng/ml (<200)
[2020-11-21 18:54] LABS: Direct LDL Cholesterol 153.01 mg/dL (100-129)
[2020-11-21 18:55] LABS: Methadone Screen,Urine Negative ng/ml (<300)
[2020-11-21 18:56] LABS: Cannabinoid Screen,Urine Negative ng/ml (<50); Opiate Screen,Urine Positive ng/ml (<300)
[2020-11-21 18:57] LABS: Phencyclidine Screen,Urine Negative ng/ml (<25)
[2020-11-21 19:00] LABS: T4 (Thyroxine) 9.3 ug/dl (5.53-11.0)
[2020-11-21 19:14] LABS: Thyroid Stimulating Hormone 1.49 uIU/mL (0.465-4.68)
[2020-11-21 19:25] LABS: Hemoglobin A1C 11.8 % (4.0-6.0)
[2020-11-21 19:54] LABS: Amphetamine/Metha Screen,Urine Negative ng/ml (<1000)
[2020-11-21 20:10] LABS: Cocaine Screen,Urine Negative ng/ml (<300)
== END ==
PROVIDERS: Visit Provider Family Medicine
DX: R10.13 Epigastric pain; I10 Essential (primary) hypertension; E11.9 Type 2 diabetes mellitus without complications; G89.29 Other chronic pain; M54.5 Low back pain; Z79.899 Other long term (current) drug therapy; Z79.4 Long term (current) use of insulin
CPT/HCPCS: 80053; 80061; 80305; 82043; 82570; 83036; 84436; 84443; 85025

== ENCOUNTER → 2020-12-08 16:59 | Outpatient (CLI) | payer MEDICARE, OTHER, SELFPAY ==
[2020-12-08 17:42] LABS: Amphetamine/Metha Screen,Urine Negative ng/ml (<1000)
[2020-12-08 17:43] LABS: Barbiturates Screen,Urine Negative ng/ml (<200)
[2020-12-08 17:44] LABS: Benzodiazepines Screen,Urine Negative ng/ml (<200); Cannabinoid Screen,Urine Negative ng/ml (<50)
[2020-12-08 17:45] LABS: Cocaine Screen,Urine Negative ng/ml (<300); Methadone Screen,Urine Negative ng/ml (<300)
[2020-12-08 17:46] LABS: Opiate Screen,Urine Positive ng/ml (<300)
[2020-12-08 17:47] LABS: Phencyclidine Screen,Urine Negative ng/ml (<25)
== END ==
PROVIDERS: Visit Provider Family Medicine
DX: Z79.899 Other long term (current) drug therapy (principal)
CPT/HCPCS: 80305

== ENCOUNTER → 2020-12-22 18:07 | Outpatient (CLI) | payer MEDICARE, OTHER, SELFPAY ==
[2020-12-22 19:06] LABS: Amphetamine/Metha Screen,Urine Negative ng/ml (<1000)
[2020-12-22 19:07] LABS: Barbiturates Screen,Urine Negative ng/ml (<200); Cannabinoid Screen,Urine Negative ng/ml (<50)
[2020-12-22 19:08] LABS: Cocaine Screen,Urine Negative ng/ml (<300); Methadone Screen,Urine Negative ng/ml (<300)
[2020-12-22 19:09] LABS: Opiate Screen,Urine Positive ng/ml (<300)
[2020-12-22 19:10] LABS: Phencyclidine Screen,Urine Negative ng/ml (<25)
[2020-12-22 19:12] LABS: Benzodiazepines Screen,Urine Negative ng/ml (<200)
== END ==
PROVIDERS: Visit Provider Family Medicine
DX: G89.29 Other chronic pain (principal); M54.5 Low back pain
CPT/HCPCS: 80305

== ENCOUNTER → 2021-01-18 19:34 | Outpatient (CLI) | payer MEDICARE, OTHER, SELFPAY ==
[2021-01-18 20:21] LABS: Barbiturates Screen,Urine Negative ng/ml (<200); Benzodiazepines Screen,Urine Negative ng/ml (<200)
[2021-01-18 20:22] LABS: Amphetamine/Metha Screen,Urine Negative ng/ml (<1000)
[2021-01-18 20:23] LABS: Cannabinoid Screen,Urine Negative ng/ml (<50); Methadone Screen,Urine Negative ng/ml (<300)
[2021-01-18 20:24] LABS: Cocaine Screen,Urine Negative ng/ml (<300); Opiate Screen,Urine Positive ng/ml (<300)
[2021-01-18 20:25] LABS: Phencyclidine Screen,Urine Negative ng/ml (<25)
== END ==
PROVIDERS: Visit Provider Family Medicine
DX: G89.29 Other chronic pain (principal); M54.5 Low back pain
CPT/HCPCS: 80305

== ENCOUNTER 2021-02-01 16:08 | Observation (INO) | payer MEDICARE, OTHER, SELFPAY ==
[2021-02-01 16:09] VITALS: BP 160/88; PULSE 85; RESP 16; TEMP 37.1; O2SAT 98; BMI 13.8; BMI 14.1
[2021-02-01 17:00] VITALS: BP 183/81; PULSE 77; O2SAT 93
[2021-02-01 17:37] LABS: Chloride 97 mmol/L (98-107); Sodium 135 mmol/L (136-145)
[2021-02-01 17:38] LABS: Potassium 4.9 mmoL/L (3.5-5.1)
[2021-02-01 17:40] LABS: Alanine Aminotransferase 9 U/L (12-78); Alkaline Phosphatase 135 U/L (38-126); Anion Gap 9.9 mEq/L (5-15); Aspartate Amino Transferase 23 U/L (14-36); Bilirubin,Total 0.4 mg/dl (0.2-1.3); Blood Urea Nitrogen 22 mg/dl (7-17); Calcium 9.1 mg/dl (8.4-10.2); Carbon Dioxide 33 mmol/L (22.0-30.0); Creatinine Clearance Estimated 33 mL/min (50-200); Estimated Glomerular Filt Rate 56 ml/min (>60); GFR (African American) 67 ML/MIN (>60); Glucose 228 mg/dl (74-100); Lipase 287 U/L (23-300)
[2021-02-01 17:41] LABS: Albumin/Globulin Ratio 1.4 (1.1-1.8); Globulin 2.9 g/dL (1.3-3.2); Total Protein,Serum 6.9 g/dl (6.3-8.2)
[2021-02-01 17:45] LABS: Basophils % 0.6 % (0.1-2.0); Eosinophils # 0.1 K/mm3 (0.0-0.4); Eosinophils % 1.3 % (0.1-12.0); Hematocrit 44.1 % (37.0-47.0); Hemoglobin 14.8 g/dL (12.2-16.2); Lymphocytes # 1.2 K/mm3 (0.7-4.5); Lymphocytes % 17.9 % (10-50); Mean Corpuscular HGB Conc 33.6 g/dL (31.8-35.4); Mean Corpuscular Hemoglobin 30.8 pg (27.0-31.2); Mean Corpuscular Volume 91.8 fl (81-99); Monocytes # 0.5 K/mm3 (0.1-1.0); Monocytes % 6.6 % (1.7-9.3); Neutrophils # 5.1 K/mm3 (1.8-7.8); Neutrophils % 73.7 % (37.0-80.0); Platelet Count 184 K/mm3 (142-424); Red Cell Distribution Width 13.6 % (11.5-17.5)
[2021-02-01 18:04] LABS: Troponin I < 0.01 ng/ml (0.00-0.034)
--- NOTE | 2021-02-01 18:11 | CT_ITS ---
PROCEDURE INFORMATION: Exam: CT Abdomen And Pelvis Without Contrast Exam date and time: 02/01/2021 6:11 PM Age: 65 years old Clinical indication: Nausea and vomiting; Abdominal pain; Generalized; Additional info: N/v and pain. Prior surgery: Gallbladder, appendix, colon, kidney, lumbar spine, right hip , vascular stents. Other procedure information: Chronic pneumobilia, unchanged. Cholecystectomy clips. TECHNIQUE: Imaging protocol: Computed tomography of the abdomen and pelvis without contrast. Radiation optimization: All CT scans at this facility use at least one of these dose optimization techniques: automated exposure control; mA and/or kV adjustment per patient size (includes targeted exams where dose is matched to clinical indication); or iterative reconstruction. COMPARISON: CT ABDOMEN PELVIS WO CON 09/08/2020 6:22 PM FINDINGS: Lungs: Chronic pulmonary emphysematous changes and minimal interstitial scarring. No focal consolidation, as visualized. Liver: The liver is normal. Gallbladder and bile ducts: Cholecystectomy clips. Chronic pneumobilia. Chronic dilatation of the common duct up to 1.3 cm. No obstructing calcified stones. Pancreas: Thinned, atrophic pancreas. No ductal dilatation or mass. Chronic punctate calcification abutting the head of pancreas series 3, image 30 is unchanged, likely vascular calcification. Spleen: The spleen is normal. Adrenal glands: The adrenal glands are normal. Kidneys and ureters: Chronic punctate bilateral renal calcifications which are probably vascular calcifications, less likely nonobstructing stones. There is mild left hydronephrosis compared with the previous exam, but no significant hydroureter or calcified obstructing ureteral stone. No hydronephrosis, hydroureter or obstructing stones seen on the right. A chronic right upper pole renal cortical cystic lesion 1.4 cm with HU density of 14 and benign appearance on this nonenhanced scan coronal series 601, image 47. Stomach and bowel: Surgical sutures in the sigmoid colon. Moderate bowel gas and fecal material throughout the colon, no acute findings. Prominent gaseous distention of small intestinal loops in the lower abdomen, greater on the right, coronal series 601, image 25. There are several air-fluid levels. Correlate for ileus or enteritis. No significantly dilated loops to confirm a mechanical small bowel obstruction. No significant mucosal thickening. No acute findings in the stomach. Appendix: Post appendectomy. Intraperitoneal space: There is no free intraperitoneal air. There is no significant free intraperitoneal fluid. No organized intraperitoneal abscess collection. Vasculature: The vasculature demonstrates scattered mild to moderate atherosclerotic calcification. There are stents within superior mesenteric, celiac, right and left renal arteries.There is no aortic aneurysm. No portal venous gas. Lymph nodes: No significantly enlarged lymph nodes by short axis criteria. Urinary bladder: The bladder is normal. Reproductive: Post hysterectomy. No acute findings. Bones/joints: Spinal degenerative changes. Chronic posterior metallic fusion hardware at L4 through S1 levels which appears intact with no evidence of loosening or infection. Multilevel disc disease and spondylosis. Right femur fixation screws with old femur neck fracture deformity. Osteopenia. No acute appearing fracture or dislocation. Soft tissues: Anterior abdominal-pelvic wall scarring.There are no soft tissue masses or fluid collections. IMPRESSION: 1. Prominent gaseous distention of small intestinal loops greatest in the right lower quadrant with air-f
--- NOTE | 2021-02-01 18:12 | HMH.EDGENADL ---
ED Disposition Clinical Impression: Ileus Nausea and vomiting Qualifiers: Vomiting type: unspecified Vomiting Intractability: intractable Qualified Code(s): R11.2 - Nausea with vomiting, unspecified Abdominal pain Qualifiers: Abdominal location: right lower quadrant Qualified Code(s): R10.31 - Right lower quadrant pain Disposition: Admitted as Observation Condition on Discharge: Good Referrals: Tanner Lora MD [Primary Care Provider] - Time of Disposition: 20:11 - Critical Care Critical Care Time: No Attestation: On 02/01/21, the high probability of a clinically significant, sudden or life threatening deterioration of the following system(s) required my full and direct attention, intervention and personal management. The time I documented below is in addition to time spent performing reported procedures but includes the following listed in this critical care notation. Medical Decision Making - Medical Records Medical records reviewed: Yes: I reviewed the patient's medical records. - [place] Inquiry Pt receiving controlled substance: No Vital Signs: 02/01/21 16:09 02/01/21 17:00 Temperature 98.7 F Temperature Source Oral Pulse Rate 77 Pulse Rate [Radial] 85 Respiratory Rate 16 Blood Pressure 183/81 H Blood Pressure [Right Arm] 160/88 H Blood Pressure Mean [Right Arm] 112 Blood Pressure Position [Right Arm] Sitting 02 Sat by Pulse Oximetry 98 93 L Oxygen Delivery Method Room Air Room Air - Lab Data Lab results reviewed: Yes: I reviewed the patient's lab results. Lab Results 02/01/21 17:17: WBC 7.0, RBC 4.80, Hgb 14.8, Hct 44.1, MCV 91.8, MCH 30.8, MCHC 33.6, RDW 13.6, Plt Count 184, MPV 9.0, Neut % (Auto) 73.7, Lymph % (Auto) 17.9, Porter % (Auto) 6.6, Eos % (Auto) 1.3, Baso % (Auto) 0.6, Neut # (Auto) 5.1, Lymph # (Auto) 1.2, Porter # (Auto) 0.5, Eos # (Auto) 0.1, Baso # (Auto) 0.0 02/01/21 17:17: Sodium 135 L, Potassium 4.9, Chloride 97 L, Carbon Dioxide 33 H, Anion Gap 9.9, BUN 22 H, Creatinine 1.00, Estimated Creat Clear 33, Estimated GFR 56 L, Est GFR ( Amer) 67, Glucose 228 H, Calcium 9.1, Total Bilirubin 0.4, AST 23, ALT 9 L, Alkaline Phosphatase 135 H, Troponin I < 0.01, Total Protein 6.9, Albumin 4.0, Globulin 2.9, Albumin/Globulin Ratio 1.4, Lipase 287 02/01/21 19:04: Urine Color Yellow, Urine Appearance Clear, Urine pH 7.0, Ur Specific [place] 1.025, Urine Protein 2+, Urine Glucose (UA) Trace, Urine Ketones Negative, Urine Blood Negative, Urine Nitrate Negative, Urine Bilirubin Negative, Urine Urobilinogen 0.2, Ur Leukocyte Esterase Negative, Urine WBC 3-5, Ur Squamous Epith Cells Occasional, Urine Bacteria Trace Result diagrams: 02/01/21 17:17 02/01/21 17:17 Orders (Tests/Meds): ED MEDICATIONS Generic Name Dose Route Start Last Admin Trade Name Freq PRN Reason Stop Dose Admin Lactated Ringer's 1,000 mls @ 999 mls/hr 02/01/21 17:30 02/01/21 17:43 Lactated Ringer's 1000 Ml Bag IV 02/01/21 18:30 999 mls/hr .Q1H1M VAN Administration Discontinued Medications Generic Name Dose Route Start Last Admin Trade Name Freq PRN Reason Stop Dose Admin Ketorolac Tromethamine 15 mg 02/01/21 18:11 02/01/21 18:24 Ketorolac 30mg/Ml Vial IV 02/01/21 18:12 15 mg ONCE ONE Administration Ondansetron HCl 4 mg 02/01/21 17:29 02/01/21 17:43 Ondansetron 4mg/2ml Vial IV 02/01/21 17:30 4 mg ONCE ONE Administration - CT Data CT Scan: Abdomen, Pelvis Time Received: 19:[address] Reviewed: Yes: I have reviewed the patient's CT results Preliminary Findings: Abnormal Findings Narrative: possible ileus Medical Decision Narrative: 65yo F evaluate for abdominal pain. Differential diagnosis includes but not limited to: Pancreatitis, gastritis, bowel obstruction, SMA syndrome, ischemic colitis. Patient in no acute distress and resting comfortably upon my initial evaluation. Laboratory studies are collected and CBC, metabolic panel, to include lipase, are unr
[2021-02-01 19:15] LABS: Microscopic, Urine URINE MICROSCOPIC (MICROSCOPIC)
[2021-02-01 19:36] LABS: Appearance,Urine CLEAR (Clear); Bilirubin,Urine Negative (Negative); Blood, Urine Negative (Negative); Color,Urine YELLOW (Yellow); Glucose,Urine (UA) TRACE (Negative); Ketones,Urine Negative (Negative); Leukocyte Esterase,Urine Negative (Negative); Nitrate,Urine Negative (Negative); Protein,Urine 2+ (Negative); Specific Gravity, Urine 1.025 (1.005-1.030); Urobilinogen,Urine 0.2 EU/dl (0.2)
[2021-02-01 19:43] LABS: Bacteria,Urine Trace /lpf; Squamous Epithelial Cell,Urine Occasional #/hpf (0-5)
--- NOTE | 2021-02-01 20:07 | PC.NURSE ---
Dr Faulkner spoke to Dr Harris about admission. Dr Harris agreed to admit for Ileus.
--- NOTE | 2021-02-01 20:11 | PC.NURSE ---
Addendum entered by Alisa Jaramillo RN 02/01/21 20:12: Room 202 Original Note: Bed assignment given to ED Staff. Pt is going to room 204.
[2021-02-01 20:15] VITALS: BP 195/83; PULSE 81; RESP 20; O2SAT 94
[2021-02-01 20:35] LABS: Coronavirus 19, PCR Not Detected (NotDetected); Influenza A, PCR Not Detected (NotDetected); Influenza B, PCR Not Detected (NotDetected)
[2021-02-01 21:30] VITALS: BP 176/84; PULSE 73; RESP 15; O2SAT 92
[2021-02-01 21:41] VITALS: BP 176/84; PULSE 77; RESP 18; TEMP 37.1; O2SAT 94
[2021-02-01 22:00] VITALS: BP 170/94; PULSE 82; RESP 18; TEMP 37.1; O2SAT 92; BMI 14.7
--- NOTE | 2021-02-01 22:01 | PC.NURSE ---
PT ARRIVED TO FLOOR VIA W/C FROM ED W/STAFF AT 2201
[2021-02-02] VITALS (8 sets, daily range): BP systolic 137–171; BP diastolic 79–94; PULSE 68–88; RESP 16–22; TEMP 36.9–37.1; O2SAT 91–96; BMI 14.7; BMI 14.6
--- NOTE | 2021-02-02 00:14 | PC.NURSE ---
PT UNABLE TO IDENTIFY WHICH MEDICATIONS SHE TAKES AND DOESN'T TAKE. STATES HER BROTHER WILL BRING LIST/MEDS IN TOMORROW.
--- NOTE | 2021-02-02 03:04 | PC.NURSE ---
A&OX4. TOLERATING RA WELL. UP INDEPENDENTLY IN ROOM. PT EXPERIENCING SOME NAUSEA. ADMINISTERED ZOFRAN PER AUG. PT C/O PAIN TO ABD AND R HIP. TREATED PER AUG. PT REPORTS RELIEF OF PAIN. MD JACOBSEN ORDERED ENEMA-PT TOLERATED WELL. APPX 10 MINUTES POST ENEMA, PT HAD MODERATE BOWEL MOVEMENT. STOOL WAS HARD AND RESEMBLING LUBA. TOLERATING NPO DIET WELL. DISCUSSED PT TYPE 1 DM WITH HER. SHE STATES THAT SHE WOULD REFUSE ANY KIND OF INSULIN AT THIS TIME, SHE DOES NOT TAKE IT WHEN SHE IS SICK. PT RESTING COMFORTABLY MAJORITY OF SHIFT. VSS WILL CONTINUE TO MONITOR.
--- NOTE | 2021-02-02 06:24 | PC.NURSE ---
PT IS PASSING GAS THIS MORNING. PT REPORTS HER BS FEELS LIKE IT'S DROPPING. CHECKED FSBS-83 AT THIS TIME. PT RESTING IN BED.
[2021-02-02 06:27] LABS: POC Glucose,Bedside 83 (70-110)
[2021-02-02 06:36] LABS: Basophils # 0.1 K/mm3 (0-0.2); Basophils % 0.6 % (0.1-2.0); Eosinophils # 0.2 K/mm3 (0.0-0.4); Eosinophils % 1.6 % (0.1-12.0); Hematocrit 39.8 % (37.0-47.0); Hemoglobin 13.4 g/dL (12.2-16.2); Lymphocytes # 2.2 K/mm3 (0.7-4.5); Lymphocytes % 22.3 % (10-50); Mean Corpuscular HGB Conc 33.7 g/dL (31.8-35.4); Mean Corpuscular Hemoglobin 31.1 pg (27.0-31.2); Mean Corpuscular Volume 92.2 fl (81-99); Mean Platelet Volume 8.3 fl (7.4-10.4); Monocytes # 0.6 K/mm3 (0.1-1.0); Monocytes % 6.4 % (1.7-9.3); Neutrophils # 6.8 K/mm3 (1.8-7.8); Neutrophils % 69.1 % (37.0-80.0); Platelet Count 177 K/mm3 (142-424); Red Blood Count 4.32 M/mm3 (4.20-5.40); Red Cell Distribution Width 13.4 % (11.5-17.5); White Blood Count 9.9 K/mm3 (4.8-10.8)
[2021-02-02 06:40] LABS: Chloride 103 mmol/L (98-107)
[2021-02-02 06:41] LABS: Potassium 4.9 mmoL/L (3.5-5.1); Sodium 136 mmol/L (136-145)
[2021-02-02 06:43] LABS: Alanine Aminotransferase 8 U/L (12-78); Aspartate Amino Transferase 24 U/L (14-36); Blood Urea Nitrogen 17 mg/dl (7-17); Creatinine Clearance Estimated 35 mL/min (50-200); Estimated Glomerular Filt Rate 63 ml/min (>60); GFR (African American) 76 ML/MIN (>60)
[2021-02-02 06:44] LABS: Albumin Level 3.3 g/dl (3.5-5.0); Albumin/Globulin Ratio 1.3 (1.1-1.8); Alkaline Phosphatase 114 U/L (38-126); Anion Gap 7.9 mEq/L (5-15); Bilirubin,Total 0.5 mg/dl (0.2-1.3); Calcium 8.6 mg/dl (8.4-10.2); Carbon Dioxide 30 mmol/L (22.0-30.0); Globulin 2.5 g/dL (1.3-3.2); Glucose 90 mg/dl (74-100); Total Protein,Serum 5.8 g/dl (6.3-8.2)
--- NOTE | 2021-02-02 07:04 | HMH.PHAVTE ---
[facility] Pharmacy VTE Monitoring - Patient Demographics Admission date: 02/01/21 Report Date: 02/02/21 Time: 07:04 Allergies/Adverse Reactions: Patient Allergies Iodinated Contrast Media Allergy (Verified 02/01/21 15:22) Height: 1.63 m Weight: 39.037 kg Patient Problems: Current Active Problems Abdominal pain (Acute) Ileus (Acute) Nausea and vomiting (Acute) - VTE Risk Labs: VTE Related Lab Results Hgb 13.4 g/dL (12.2-16.2) 02/02/21 06:27 Hct 39.8 % (37.0-47.0) 02/02/21 06:27 Plt Count 177 K/mm3 (142-424) 02/02/21 06:27 BUN 17 mg/dl (7-17) 02/02/21 06:27 Creatinine 0.90 mg/dl (0.52-1.04) 02/02/21 06:27 Estimated Creat Clear 35 mL/min (50-200) 02/02/21 06:27 - Prophylaxis VTE Prophylaxis Ordered?: Yes Types of VTE Prophylaxis: IPCS Thigh High, Pharmacological Location of Applied Device: Bilateral Lower Extremeties Pharmacologic Type: Enoxaparin
[2021-02-02 07:35] LABS: POC Glucose,Bedside 85 (70-110)
--- NOTE | 2021-02-02 09:34 | HMH.HP ---
*Admission Date: 02/01/21 *Chief complaint: Abd Pain *History of present illness: 65-year-old female patient presented to the [facility] emergency department after being at primary care provider's office for complaints of upper abdominal pain radiating into her back for 2 days. She also reports nausea and vomiting. She does have a history of pancreatitis. In the emergency department all lab work including lipase were unremarkable, abdomen pelvis CT scan showed possible ileus and she was admitted to the floor FINDINGS: Lungs: Chronic pulmonary emphysematous changes and minimal interstitial scarring. No focal consolidation, as visualized. Liver: The liver is normal. Gallbladder and bile ducts: Cholecystectomy clips. Chronic pneumobilia. Chronic dilatation of the common duct up to 1.3 cm. No obstructing calcified stones. Pancreas: Thinned, atrophic pancreas. No ductal dilatation or mass. Chronic punctate calcification abutting the head of pancreas series 3, image 30 is unchanged, likely vascular calcification. Spleen: The spleen is normal. Adrenal glands: The adrenal glands are normal. Kidneys and ureters: Chronic punctate bilateral renal calcifications which are probably vascular calcifications, less likely nonobstructing stones. There is mild left hydronephrosis compared with the previous exam, but no significant hydroureter or calcified obstructing ureteral stone. No hydronephrosis, hydroureter or obstructing stones seen on the right. A chronic right upper pole renal cortical cystic lesion 1.4 cm with HU density of 14 and benign appearance on this nonenhanced scan coronal series 601, image 47. Stomach and bowel: Surgical sutures in the sigmoid colon. Moderate bowel gas and fecal material throughout the colon, no acute findings. Prominent gaseous distention of small intestinal loops in the lower abdomen, greater on the right, coronal series 601, image 25. There are several air-fluid levels. Correlate for ileus or enteritis. No significantly dilated loops to confirm a mechanical small bowel obstruction. No significant mucosal thickening. No acute findings in the stomach. Appendix: Post appendectomy. Intraperitoneal space: There is no free intraperitoneal air. There is no significant free intraperitoneal fluid. No organized intraperitoneal abscess collection. Vasculature: The vasculature demonstrates scattered mild to moderate atherosclerotic calcification. There are stents within superior mesenteric, celiac, right and left renal arteries.There is no aortic aneurysm. No portal venous gas. Lymph nodes: No significantly enlarged lymph nodes by short axis criteria. Urinary bladder: The bladder is normal. Reproductive: Post hysterectomy. No acute findings. Bones/joints: Spinal degenerative changes. Chronic posterior metallic fusion hardware at L4 through S1 levels which appears intact with no evidence of loosening or infection. Multilevel disc disease and spondylosis. Right femur fixation screws with old femur neck fracture deformity. Osteopenia. No acute appearing fracture or dislocation. Soft tissues: Anterior abdominal-pelvic wall scarring.There are no soft tissue masses or fluid collections. IMPRESSION: 1. Prominent gaseous distention of small intestinal loops greatest in the right lower quadrant with air-fluid levels, correlate for focal ileus or enteritis. No significantly dilated loops to suggest obstruction, no mucosal thickening. No findings of bowel perforation. 2. There is mild left hydronephrosis compared with the prior exam, but no obstructing calcified stones are seen. Differential would include UTI, recent passage of a stone, or occult low-density ureteral stone. 3. No other acute findings or significant change compared with the prior exam. 4. Additional nonemergency and chronic findings as above. [employer]
[2021-02-02 12:07] LABS: POC Glucose,Bedside 313 (70-110)
--- NOTE | 2021-02-02 16:40 | PC.NURSE ---
Pt has done well this shift. Pt has ambulated independently to and from bathroom w/ steady gait and balance. Pt has c/o abd pain x1 this shift and was medicated per AUG. Upon reassessment pt was resting w/ eyes closed. Pt has stated she has tolerated the clear liquids this shift. No other acute changes or complaints at this time, will continue to monitor.
--- NOTE | 2021-02-02 16:44 | HMH.PHAINT ---
MEDICATION RECONCILIATION COMPLETED ON PATIENT USING EXTERNAL FILL HISTORY FROM PHARMACY AND LIST FROM PCP OFFICE. -NEVIN HERNANDEZD
[2021-02-02 18:21] LABS: POC Glucose,Bedside 147 (70-110)
[2021-02-02 19:58] LABS: POC Glucose,Bedside 254 (70-110)
--- NOTE | 2021-02-03 03:34 | PC.NURSE ---
pt has been awake most of shift, pt remains alert and oriented, scattered insp and expiratory wheezes noted throughout lungs, ambulation encouraged, heart rate remains regular, bs x 4 quads, pt c/o mild abd cramping and abdominal tenderness no abdominal distention noted, pt tolerating clear liquid diet, ivs remain patent, no needs at this time, will continue to monitor
[2021-02-03 04:00] VITALS: BP 160/78; PULSE 76; RESP 20; TEMP 36.7; O2SAT 94
[2021-02-03 04:54] VITALS: BMI 15.3
[2021-02-03 05:39] LABS: POC Glucose,Bedside 181 (70-110)
[2021-02-03 06:30] VITALS: PULSE 76; O2SAT 94
[2021-02-03 06:44] LABS: Basophils # 0.1 K/mm3 (0-0.2); Basophils % 1.2 % (0.1-2.0); Eosinophils # 0.2 K/mm3 (0.0-0.4); Eosinophils % 4.3 % (0.1-12.0); Hematocrit 38.8 % (37.0-47.0); Hemoglobin 12.5 g/dL (12.2-16.2); Lymphocytes # 1.9 K/mm3 (0.7-4.5); Lymphocytes % 36.8 % (10-50); Mean Corpuscular HGB Conc 32.1 g/dL (31.8-35.4); Mean Corpuscular Hemoglobin 30.4 pg (27.0-31.2); Mean Corpuscular Volume 94.6 fl (81-99); Mean Platelet Volume 8.3 fl (7.4-10.4); Monocytes # 0.4 K/mm3 (0.1-1.0); Monocytes % 7.6 % (1.7-9.3); Neutrophils # 2.6 K/mm3 (1.8-7.8); Platelet Count 159 K/mm3 (142-424); Red Cell Distribution Width 13.5 % (11.5-17.5); White Blood Count 5.2 K/mm3 (4.8-10.8)
[2021-02-03 07:47] LABS: Chloride 108 mmol/L (98-107)
[2021-02-03 07:48] LABS: Potassium 4.1 mmoL/L (3.5-5.1); Sodium 138 mmol/L (136-145)
[2021-02-03 07:51] LABS: Anion Gap 7.1 mEq/L (5-15); Blood Urea Nitrogen 16 mg/dl (7-17); Carbon Dioxide 27 mmol/L (22.0-30.0); Creatinine Clearance Estimated 36 mL/min (50-200); Estimated Glomerular Filt Rate 63 ml/min (>60); GFR (African American) 76 ML/MIN (>60); Glucose 114 mg/dl (74-100)
[2021-02-03 08:00] VITALS: BP 155/83; PULSE 90; RESP 15; TEMP 36.9; O2SAT 96
[2021-02-03 11:58] LABS: Calcium 7.7 mg/dl (8.4-10.2)
[2021-02-03 12:05] LABS: POC Glucose,Bedside 143 (70-110)
--- NOTE | 2021-02-03 13:57 | XR_ITS ---
PROCEDURE INFORMATION: Exam: XR Complete Acute Abdomen Series Including Chest Exam date and time: 02/03/2021 1:57 PM Age: 65 years old Clinical indication: Condition or disease; Other: Ileus TECHNIQUE: Imaging protocol: XR complete acute abdomen series, including 2 or more views of the abdomen and a single view chest. COMPARISON: CT ABDOMEN PELVIS WO CON 02/01/2021 6:33 PM FINDINGS: Tubes, catheters and devices: There are sternal wires consistent with previous sternotomy incision. Lungs: Granulomatous density noted within the left lung base. The lungs are hyperinflated, consistent with underlying small airways disease. Pleural spaces: Normal. No pleural effusions. No pneumothorax. Heart/Mediastinum: Normal. No cardiomegaly. Gastrointestinal tract: Small air-fluid levels are present consistent with mild ileus. The bowel gas pattern is nonobstructive and nonspecific. A large amount of stool is noted throughout the colon. Intraperitoneal space: Postoperative changes of the lower pelvis. Organs: There has been a cholecystectomy. Vasculature: Stents are in place along the upper abdomen. Bones/joints: Postoperative changes of the lower lumbar spine and right hip. Degenerative changes of both hips. [id number] degenerative changes of the thoracolumbar spine. Soft tissues: Normal. IMPRESSION: 1. Small air-fluid levels are present consistent with mild ileus. 2. The lungs are hyperinflated, consistent with underlying small airways disease. 3. The bowel gas pattern is nonobstructive and nonspecific. 4. A large amount of stool is noted throughout the colon. 5. [id number] degenerative changes of the thoracolumbar spine.
--- NOTE | 2021-02-03 13:58 | HMH.ACPN2 ---
Internal Medicine - PN: Subj *Date: 02/03/21 *Time: 13:58 Interval history: Is passing flatus, no good bowel movement. He continues to complain of nausea, some crampy abdominal pain but is very hungry and would like to attempt passing her diet. He has chronic musculoskeletal pain. Chest pain, no shortness of air. No interval neurologic changes Exam Vital signs and Labs for Last 24 Hours: Temp Pulse Resp BP Pulse Ox 98.4 F 90 15 155/83 H 96 02/03/21 08:00 02/03/21 08:00 02/03/21 08:00 02/03/21 08:00 02/03/21 08:00 Laboratory Results - last 24 hr 02/02/21 17:22: POC Glucose 147 H 02/02/21 19:48: POC Glucose 254 H 02/03/21 05:17: POC Glucose 181 H 02/03/21 06:25: WBC 5.2 D, RBC 4.10 L, Hgb 12.5, Hct 38.8, MCV 94.6, MCH 30.4, MCHC 32.1, RDW 13.5, Plt Count 159, MPV 8.3, Neut % (Auto) 50.0, Lymph % (Auto) 36.8, [place] % (Auto) 7.6, Eos % (Auto) 4.3, Baso % (Auto) 1.2, Neut # (Auto) 2.6, Lymph # (Auto) 1.9, [place] # (Auto) 0.4, Eos # (Auto) 0.2, Baso # (Auto) 0.1 02/03/21 06:25: Sodium 138, Potassium 4.1, Chloride 108 H, Carbon Dioxide 27, Anion Gap 7.1, BUN 16, Creatinine 0.90, Estimated Creat Clear 36, Estimated GFR 63, Est GFR ( Amer) 76, Glucose 114 H D, Calcium 7.7 L D 02/03/21 11:50: POC Glucose 143 H I & O for Last 24 hours: Intake & Output 01/31/21 02/01/21 02/02/21 02/03/21 23:59 23:59 23:59 23:59 Intake Total 999 1320 / 1320 Balance 999 1320 / 1320 Weight 86 lb 1 oz 85 lb 15.684 oz 90 lb - Constitutional no acute distress, cachectic - *Routine HEENT Exam Head: Present: normocephalic Eye: Present: EOMI, PERRL ENT: Present: mucous membranes moist - *Routine Neck Exam Present: supple. Absent: lymphadenopathy - *Routine Respiratory Exam Present: CTA bilaterally - *Routine Cardiovascular Exam Present: RRR - *Routine Abdominal Exam Present: soft, normoactive bowel sounds, tenderness. Absent: distended, rebound, organomegaly, mass - *Routine Extremities Exam Absent: cyanosis, clubbing, edema - *Routine Skin Exam Present: warm. Absent: rash - *Routine Neurological Exam Present: alert, oriented X3 Assessment and Plan (1) Abdominal pain Status: Acute Qualifiers: Abdominal location: right lower quadrant Qualified Code(s): R10.31 - Right lower quadrant pain Category: Medical Code(s): R10.9 - Unspecified abdominal pain (2) Ileus Status: Acute Category: Medical Code(s): K56.7 - Ileus, unspecified (3) Low body mass index (BMI) Status: Chronic Category: Medical (4) Chronic low back pain Status: Chronic Qualifiers: Back pain laterality: midline Sciatica presence: without sciatica Qualified Code(s): M54.5 - Low back pain; G89.29 - Other chronic pain Category: Medical Code(s): M54.5 - Low back pain; G89.29 - Other chronic pain (5) Essential hypertension Status: Chronic Category: Medical Code(s): I10 - Essential (primary) hypertension (6) Diabetes mellitus, insulin dependent (IDDM), uncontrolled Status: Chronic Category: Medical (7) Renal insufficiency Status: Acute Category: Medical Code(s): N28.9 - Disorder of kidney and ureter, unspecified (8) CAD (coronary artery disease) Status: Chronic Qualifiers: Coronary Disease-Associated Artery/Lesion type: [place] artery [place] vs. transplanted heart: [place] heart Associated angina: without angina Qualified Code(s): I25.10 - Atherosclerotic heart disease of [place] coronary artery without angina pectoris Category: Medical Code(s): I25.10 - Atherosclerotic heart disease of [place] coronary artery without angina pectoris (9) COPD (chronic obstructive pulmonary disease) Status: Chronic Qualifiers: COPD type: unspecified COPD Qualified Code(s): J44.9 - Chronic obstructive pulmonary disease, unspecified Category: Medical Code(s): J44.9 - Chronic obstructive pulmonary disease, unspecified
[2021-02-03 14:06] LABS: Lipase 86 U/L (23-300)
[2021-02-03 15:34] VITALS: BP 146/75; PULSE 81; RESP 15; TEMP 36.9; O2SAT 93
[2021-02-03 17:56] LABS: POC Glucose,Bedside 304 (70-110)
--- NOTE | 2021-02-03 18:22 | PC.NURSE ---
Pt has been pleasant this shift. Pt has required PRN meds x2 this shift, w/ favorable results. Pt has tolerated regular diet well this shift. No BM reported, pt did receive scheduled Miralax this shift. No other acute changes or complaints at this time, will continue to monitor.
[2021-02-03 20:00] VITALS: BP 116/76; PULSE 79; RESP 20; TEMP 37; O2SAT 100
[2021-02-03 20:40] VITALS: PULSE 76; PULSE 78
[2021-02-04 00:26] LABS: POC Glucose,Bedside 361 (70-110)
--- NOTE | 2021-02-04 03:30 | PC.NURSE ---
Pt is A/O x4. No acute changes. Pt did rest some this shift. Admin pain meds x2. VSS, Pt is able to make needs known to staff. call light within reach, will continue to monitor.
[2021-02-04 04:00] VITALS: BP 179/78; PULSE 76; RESP 16; TEMP 36.9; O2SAT 93
[2021-02-04 05:11] LABS: POC Glucose,Bedside 267 (70-110)
[2021-02-04 06:00] VITALS: BMI 18.1
[2021-02-04 06:28] VITALS: PULSE 74; PULSE 77
[2021-02-04 08:00] VITALS: BP 185/76; PULSE 84; RESP 15; TEMP 37.1; O2SAT 93
[2021-02-04 08:34] LABS: Basophils % 0.6 % (0.1-2.0); Eosinophils # 0.5 K/mm3 (0.0-0.4); Eosinophils % 7.8 % (0.1-12.0); Hematocrit 36.4 % (37.0-47.0); Hemoglobin 12.3 g/dL (12.2-16.2); Lymphocytes # 1.7 K/mm3 (0.7-4.5); Lymphocytes % 27.4 % (10-50); Mean Corpuscular HGB Conc 33.9 g/dL (31.8-35.4); Mean Corpuscular Hemoglobin 31.6 pg (27.0-31.2); Mean Corpuscular Volume 93.2 fl (81-99); Mean Platelet Volume 8.9 fl (7.4-10.4); Monocytes # 0.5 K/mm3 (0.1-1.0); Monocytes % 7.6 % (1.7-9.3); Neutrophils # 3.6 K/mm3 (1.8-7.8); Neutrophils % 56.7 % (37.0-80.0); Platelet Count 157 K/mm3 (142-424); Red Blood Count 3.91 M/mm3 (4.20-5.40); Red Cell Distribution Width 13.4 % (11.5-17.5); White Blood Count 6.3 K/mm3 (4.8-10.8)
[2021-02-04 08:45] LABS: Chloride 106 mmol/L (98-107); Potassium 4.4 mmoL/L (3.5-5.1); Sodium 136 mmol/L (136-145)
[2021-02-04 08:48] LABS: Alanine Aminotransferase 10 U/L (12-78); Albumin Level 2.6 g/dl (3.5-5.0); Albumin/Globulin Ratio 1.1 (1.1-1.8); Alkaline Phosphatase 91 U/L (38-126); Anion Gap 7.4 mEq/L (5-15); Aspartate Amino Transferase 28 U/L (14-36); Blood Urea Nitrogen 15 mg/dl (7-17); Carbon Dioxide 27 mmol/L (22.0-30.0); Creatinine Clearance Estimated 43 mL/min (50-200); Estimated Glomerular Filt Rate 63 ml/min (>60); GFR (African American) 76 ML/MIN (>60); Globulin 2.4 g/dL (1.3-3.2)
[2021-02-04 08:49] LABS: Calcium 7.6 mg/dl (8.4-10.2); Glucose 125 mg/dl (74-100)
[2021-02-04 09:02] LABS: Bilirubin,Total < 0.1 mg/dl (0.2-1.3)
[2021-02-04 10:36] VITALS: PULSE 84; PULSE 89
[2021-02-04 12:03] LABS: POC Glucose,Bedside 340 (70-110)
--- NOTE | 2021-02-04 13:19 | P.DS_ITS ---
General - General Admission date:: 02/01/21 Discharge date: 02/04/21 HPI HPI: 65-year-old female patient presented to the [facility] emergency department after being at primary care provider's office for complaints of upper abdominal pain radiating into her back for 2 days. She also reports nausea and vomiting. She does have a history of pancreatitis. In the emergency department all lab work including lipase were unremarkable, ab domen pelvis CT scan showed possible ileus and she was admitted to the floor FINDINGS: Lungs: Chronic pulmonary emphysematous changes and minimal interstitial scarring. No focal consolidation, as visualized. Liver: The liver is normal. Gallbladder and bile ducts: Cholecystectomy clips. Chronic pneumobilia. Chronic dilatation of the common duct up to 1.3 cm. No obstructing calcified stones. Pancreas: Thinned, atrophic pancreas. No ductal dilatation or mass. Chronic punctate calcification abutting the head of pancreas series 3, image 30 is unchanged, likely vascular calcification. Spleen: The spleen is normal. Adrenal glands: The adrenal glands are normal. Kidneys and ureters: Chronic punctate bilateral renal calcifications which are probably vascular calcifications, less likely nonobstructing stones. There is mild left hydronephrosis compared with the previous exam, but no significant hydroureter or calcified obstructing ureteral stone. No hydronephrosis, hydroureter or obstructing stones seen on the right. A chronic right upper pole renal cortical cystic lesion 1.4 cm with HU density of 14 and benign appearance on this nonenhanced scan coronal series 601, image 47. Stomach and bowel: Surgical sutures in the sigmoid colon. Moderate bowel gas and fecal material throughout the colon, no acute findings. Prominent gaseous distention of small intestinal loops in the lower abdomen, greater on the right, coronal series 601, image 25. There are several air-fluid levels. Correlate for ileus or enteritis. No significantly dilated loops to confirm a mechanical small bowel obstruction. No significant mucosal thickening. No acute findings in the stomach. Appendix: Post appendectomy. Intraperitoneal space: There is no free intraperitoneal air. There is no significant free intraperitoneal fluid. No organized intraperitoneal abscess collection. Vasculature: The vasculature demonstrates scattered mild to moderate atherosclerotic calcification. There are stents within superior mesenteric, celiac, right and left renal arteries.There is no aortic aneurysm. No portal venous gas. Lymph nodes: No significantly enlarged lymph nodes by short axis criteria. Urinary bladder: The bladder is normal. Reproductive: Post hysterectomy. No acute findings. Bones/joints: Spinal degenerative changes. Chronic posterior metallic fusion hardware at L4 through S1 levels which appears intact with no evidence of loosening or infection. Multilevel disc disease and spondylosis. Right femur fixation screws with old femur neck fracture deformity. Osteopenia. No acute appearing fracture or dislocation. Soft tissues: Anterior abdominal-pelvic wall scarring.There are no soft tissue masses or fluid collections. IMPRESSION: 1. Prominent gaseous distention of small intestinal loops greatest in the right lower quadrant with air-fluid levels, correlate for focal ileus or enteritis. No significantly dilated loops to suggest obstruction, no mucosal thickening. No fin
== END 2021-02-04 14:45 | disposition home or self-care (01) ==
LOC: ER 20:11 → 2ND 20:22
PROVIDERS: Emergency Medicine; Nurse Practitioner Family; Admitting Provider Internal Medicine Adolescent Medicine; Emergency Provider Family Medicine; PCP Family Medicine; Visit Provider Family Medicine
DX: K56.7 Ileus, unspecified (principal); Z20.822 Contact with and (suspected) exposure to COVID-19; Z79.4 Long term (current) use of insulin; J44.9 Chronic obstructive pulmonary disease, unspecified; I25.10 Atherosclerotic heart disease of native coronary artery without angina pectoris; Z79.899 Other long term (current) drug therapy; Z95.1 Presence of aortocoronary bypass graft; Z95.5 Presence of coronary angioplasty implant and graft; F17.210 Nicotine dependence, cigarettes, uncomplicated; K86.89 Other specified diseases of pancreas; E11.22 Type 2 diabetes mellitus with diabetic chronic kidney disease; N18.2 Chronic kidney disease, stage 2 (mild); I12.9 Hypertensive chronic kidney disease with stage 1 through stage 4 chronic kidney disease, or unspecified chronic kidney disease
CPT/HCPCS: G0378; 36415; 74021; 74176; 80048; 80053; 81001; 82962; 83690; 84484; 85025; 94640; 96365; 96375; 99283; J2405; U0003

== ENCOUNTER → 2021-02-15 17:23 | Outpatient (CLI) | payer MEDICARE, OTHER, SELFPAY ==
[2021-02-15 19:25] LABS: Benzodiazepines Screen,Urine Negative ng/ml (<200)
[2021-02-15 19:26] LABS: Amphetamine/Metha Screen,Urine Negative ng/ml (<1000)
[2021-02-15 19:27] LABS: Barbiturates Screen,Urine Negative ng/ml (<200); Methadone Screen,Urine Negative ng/ml (<300)
[2021-02-15 19:28] LABS: Cannabinoid Screen,Urine Negative ng/ml (<50); Cocaine Screen,Urine Negative ng/ml (<300)
[2021-02-15 19:29] LABS: Opiate Screen,Urine Positive ng/ml (<300)
[2021-02-15 19:30] LABS: Phencyclidine Screen,Urine Negative ng/ml (<25)
== END ==
PROVIDERS: Visit Provider Family Medicine
DX: G89.29 Other chronic pain (principal); M54.5 Low back pain; Z20.822 Contact with and (suspected) exposure to COVID-19
CPT/HCPCS: 80305; U0003

== ENCOUNTER → 2021-03-23 17:35 | Outpatient (CLI) | payer MEDICARE, OTHER, SELFPAY ==
[2021-03-23 19:28] LABS: Amphetamine/Metha Screen,Urine Negative ng/ml (<1000)
[2021-03-23 19:31] LABS: Barbiturates Screen,Urine Negative ng/ml (<200); Benzodiazepines Screen,Urine Negative ng/ml (<200)
[2021-03-23 19:32] LABS: Cannabinoid Screen,Urine Negative ng/ml (<50)
[2021-03-23 19:33] LABS: Cocaine Screen,Urine Negative ng/ml (<300); Methadone Screen,Urine Negative ng/ml (<300)
[2021-03-23 19:34] LABS: Opiate Screen,Urine Positive ng/ml (<300); Phencyclidine Screen,Urine Negative ng/ml (<25)
[2021-03-23 19:54] LABS: Hemoglobin A1C 11.1 % (4.0-6.0)
== END ==
PROVIDERS: Visit Provider Family Medicine
DX: R73.9 Hyperglycemia, unspecified (principal); R10.13 Epigastric pain; G89.29 Other chronic pain; M54.5 Low back pain
CPT/HCPCS: 80305; 83036; 87086

== ENCOUNTER → 2021-04-06 18:30 | Outpatient (CLI) | payer MEDICARE, OTHER, SELFPAY ==
[2021-04-06 19:09] LABS: Amphetamine/Metha Screen,Urine Negative ng/ml (<1000)
[2021-04-06 19:10] LABS: Barbiturates Screen,Urine Negative ng/ml (<200)
[2021-04-06 19:12] LABS: Benzodiazepines Screen,Urine Negative ng/ml (<200); Cannabinoid Screen,Urine Negative ng/ml (<50)
[2021-04-06 19:13] LABS: Cocaine Screen,Urine Negative ng/ml (<300)
[2021-04-06 19:14] LABS: Methadone Screen,Urine Negative ng/ml (<300); Opiate Screen,Urine Positive ng/ml (<300)
[2021-04-06 19:15] LABS: Phencyclidine Screen,Urine Negative ng/ml (<25)
== END ==
PROVIDERS: Visit Provider Family Medicine
DX: G89.29 Other chronic pain (principal)
CPT/HCPCS: 80305

== ENCOUNTER → 2021-04-26 19:29 | Outpatient (CLI) | payer MEDICARE, OTHER, SELFPAY ==
[2021-04-26 20:25] LABS: Amphetamine/Metha Screen,Urine Negative ng/ml (<1000)
[2021-04-26 20:26] LABS: Cannabinoid Screen,Urine Negative ng/ml (<50)
[2021-04-26 20:27] LABS: Barbiturates Screen,Urine Negative ng/ml (<200); Benzodiazepines Screen,Urine Negative ng/ml (<200)
[2021-04-26 20:28] LABS: Cocaine Screen,Urine Negative ng/ml (<300)
[2021-04-26 20:29] LABS: Methadone Screen,Urine Negative ng/ml (<300); Opiate Screen,Urine Positive ng/ml (<300)
[2021-04-26 20:30] LABS: Phencyclidine Screen,Urine Negative ng/ml (<25)
== END ==
PROVIDERS: Visit Provider Family Medicine
DX: G89.29 Other chronic pain (principal)
CPT/HCPCS: 80305

== ENCOUNTER → 2021-05-22 17:53 | Outpatient (CLI) | payer MEDICARE, OTHER, SELFPAY | PROVIDERS: Visit Provider Family Medicine | DX: R10.13 Epigastric pain (principal) | CPT/HCPCS: 87086 ==